=== PATIENT | male | born 1970 | race Caucasian/White ===

== ENCOUNTER 2023-12-02 10:38 | Outpatient (OUT) | payer OTHER, SELFPAY ==
--- NOTE | 2023-12-02 10:48 | XR_ITS ---
The [address] [address] Patient Name: ISH RODRIGUEZ MRN: [id number] date: 1970 Sex: M Assigned Patient Location: [facility] Current Patient Location: Accession/Order Number: [id number] Exam Date: 12/02/2023 10:49 Report Date: 12/03/2023 07:36 At the request of: SHAIKH YVONNE Procedure: XR knee LT 3V PROCEDURE: XR knee LT 3V COMPARISON: None. HISTORY: Chronic Left Knee Pain M25.562 FINDINGS: BONES:No acute fracture or dislocation. 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 No visible soft tissue swelling. EFFUSION:Small suprapatellar joint effusion OTHER: Negative. XR/XR knee LT 3V IMPRESSION: Mild osteoarthritis with joint effusion Electronically authenticated by: SOL MURCIA Date: 12/03/2023 07:36
== END 2023-12-02 10:39 | disposition home or self-care (01) ==
LOC: RAD 10:43
PROVIDERS: PCP Family Medicine; Visit Provider Internal Medicine
DX: M25.562 Pain in left knee (principal); G89.29 Other chronic pain; M25.462 Effusion, left knee
CPT/HCPCS: 73562

== ENCOUNTER 2024-06-07 10:39 | Outpatient (OUT) | payer OTHER, SELFPAY ==
--- NOTE | 2024-06-07 10:53 | XR_ITS ---
The [place] [id number] Patient Name: ISH RODRIGUEZ MRN: [id number] date: 1970 Sex: M Assigned Patient Location: [facility] Current Patient Location: [facility] Accession/Order Number: [id number] Exam Date: 06/07/2024 11:02 Report Date: 06/07/2024 12:00 At the request of: SHAIKH YVONNE Procedure: XR knee RT 3V PROCEDURE: XR knee RT 3V COMPARISON: None. HISTORY: Acute Pain Of Right Knee M25.561 FINDINGS: BONES:No fracture, acute abnormality, or significant arthropathy. SOFT TISSUES:Negative. No visible soft tissue swelling. EFFUSION:Moderate joint effusion OTHER: Negative. XR/XR knee RT 3V IMPRESSION: Moderate suprapatellar joint effusion Electronically authenticated by: SOL MURCIA Date: 06/07/2024 12:00
== END 2024-06-07 10:40 | disposition home or self-care (01) ==
LOC: RAD 10:41
PROVIDERS: PCP Internal Medicine; Visit Provider Internal Medicine
DX: M25.561 Pain in right knee (principal); M25.461 Effusion, right knee
CPT/HCPCS: 73562

== ENCOUNTER 2025-06-18 07:33 | Outpatient (OUT) | payer OTHER, SELFPAY ==
--- OUTSIDE RECORDS SUMMARY | 2025-06-18 07:38 | XMS_ITS | CCD ---
Author Organization [facility] CliniSypr Care Team Providers Care Wheelchair Rental Clerk Name Role Phone DR LEROY BARBA Attending Unavailable FREDA, DR LEROY Krishnan Consulting Unavailable FREDA, DR LEROY Krishnan Primary Care Unavailable FREDA, DR LEROY Krishnan Admitting Unavailable Freda LUI, Leroy Primary Care Provider TRISTAN, Primary Care Physician Timmis, Maren H Referring Unavailable Timmis, Maren H Attending Unavailable Timmis, Maren H Admitting Unavailable FAWWAD, DUBOSE Referring Unavailable LEROY BARBA Primary Care Unavailable Leroy Barba MD Primary Care Provider [phone] Tristan LUI, Unavailable Robert PRODUCTION GRAPHIC DESIGNER, Shayna Unavailable KORI RUBIO Attending Unavailable FAWWAD, DUBOSE Referring Unavailable MORATAYANANCY Attending Unavailable FAWWAD, DUBOSE Referring Unavailable MORATAYANANCY Attending Unavailable FAWWAD, DUBOSE Referring Unavailable FAWWAD, DUBOSE Attending Unavailable NANCY MORATAYA Attending Unavailable FAWWAD, DUBOSE Referring Unavailable NANCY MORATAYA Attending Unavailable FAWWAD, DUBOSE Referring Unavailable KORI RUBIO Attending Unavailable FAWWAD, DUBOSE Referring Unavailable KORI RUBIO Attending Unavailable FAWWAD, DUBOSE Referring Unavailable TIMMIS, MAREN H Attending Unavailable FAWWAD, DUBOSE Referring Unavailable TIMMIS, MAREN H Attending Unavailable MARLENY QUEZADA Attending Unavailable FAWWAD, DUBOSE Attending Unavailable FAWWAD, DUBOSE Attending Unavailable TIMMIS, MAREN H Attending Unavailable JR. WHYTE GEORGE C Attending SHAYNA Rebolledo Attending ELLA Prakash Attending Unavailable MERCED MCCALL Attending Unavailable MERCED MCCALL Attending Unavailable MAREN BOURNE Attending SHAYNA Ortiz Referring SHAYNA Pham Attending Shayna Pham NP Unavailable [phone] Medications Current Medications Medication Drug Class(es) Dates Sig (Normalized) Sig (Original) acetaminophen 325 mg / HYDROcodone bitartrate 5 mg oral tablet (3 sources) Opioid Agonist Start: 07-26-2024 End: 07-29-2024 take 1 tablet by mouth every six hours for pain HYDROcodone-acetami nophen ([place]) 5-325 MG tablet Indications: Post-operative pain Take 1 tablet by mouth every 6 (six) hours if needed for severe pain for up to 3 days 12 tablet 07/26/2024 07/29/2024 Active amoxicillin 200 mg / clavulanate 28.5 mg chewable tablet (15 sources) Penicillin-class Antibacterial End: 08-15-2024 amoxicillin-clavula butch (Augmentin) 200-28.5 MG chewable tablet Chew 08/15/2024 Discontinued (Therapy completed) cholecalciferol 0.05 mg oral tablet (4 sources) Vitamin D take 1 tablet by mouth in the morning cholecalciferol (Vitamin D-3) 50 MCG (2000 UT) tablet Take 2,000 Units by mouth in the morning. 0 Active clotrimazole 10 mg/ml topical cream (7 sources) Azole Antifungal Start: 07-11-2024 End: 08-08-2024 clotrimazole (Lotrimin) 1 % cream Indications: Primary hypertension (CMS/HCC) Apply topically 2 (two) times a day for 28 days 30 g 2 07/11/2024 08/08/2024 Active fluticasone propionate 0.05 mg/actuat metered dose nasal spray (20 sources) Corticosteroid Start: 04-24-2025 take 2 spray(s) nasal route once daily fluticasone (Flonase) 50 MCG/ACT nasal spray Indications: Chronic pansinusitis USE 2 SPRAYS IN EACH NOSTRIL DAILY 48 g 3 04/24/2025 Active Start: 05-19-2024 End: 04-24-2025 take 2 spray(s) nasal route once daily fluticasone (Flonase) 50 MCG/ACT nasal spray Indications: Chronic pansinusitis Administer 2 sprays into each nostril Daily 48 mL 3 05/19/2024 04/24/2025 Discontinued take 1 spray(s) nasa l route in the morning fluticasone (Flonase) 50 MCG/ACT nasal spray Administer 1 spray into each nostril in the morning. Shake gently. Before first use, prime pump. After use, clean tip and replace cap.. 0 Active losartan potassium 100 mg oral tablet (20 sources) Angiotensin 2 Receptor Nas Start: 05-22-2024 End: 04-09-2025 take 1 tablet by mouth once daily losartan (Cozaar) 100 MG tablet Indications: Primary hypertension (CMS/HCC) Take 1 tablet (100 mg) by mouth Daily 90 tablet 1 10/11/2024 Active montelukast 10 mg oral tablet (20 sources) Leukotriene Receptor Antagonist Start: 04-24-2025 montelukast (Singulair) 10 MG tablet Indications: Nasal polyp TAKE 1 TABLET AT BEDTIME 90 tablet 3 04/24/2025 Active Start: 05-19-2024 End: 05-19-2025 take 1 tablet by mouth at bedtime montelukast (Singulair) 10 MG tablet Indications: Nasal polyp Take 1 tablet (10 mg) by mouth at bedtime 90 tablet 3 05/19/2024 04/24/2025 Discontinued nystatin 100 unt/mg topical powder (4 sources) Polyene Antifungal Start: 11-24-2023 End: 02-22-2024 nystatin (Mycostatin) 949037 UNIT/GM powder Indications: Rash Apply topically 3 (three) times a day 60 g 2 11/24/2023 02/22/2024 Active predniSONE 10 mg oral tablet (16 sources) Start: 07-10-2024 End: 08-15-2024 predniSONE (Deltasone) 10 MG tablet 07/10/2024 08/15/2024 Discontinued (Therapy completed) Problems Active Problems Problem Classification Problem Date Documented Date Episodic/Chronic Essential hypertension (20 sources) Essential hypertension; Translations: [Essential (primary) hypertension] Onset: 11-23-2023 10-09-2024 Chronic Nutritional deficiencies (20 sources) Vitamin D deficiency, unspecified; Translations: [Vitamin D deficiency] Onset: 07-28-2022 11-23-2023 Chronic Other circulatory disease (4 sources) Elevated blood-pressure reading without diagnosis of hypertension; Translations: [Elevated blood-pressure reading, without diagnosis of hypertension] Onset: 11-23-2023 11-23-2023 Episodic Other non-traumatic joint disorders (1 source) Pain in right knee; Translations: [Pain in right knee] Onset: 06-27-2024 Episodic Other nutritional; endocrine; and metabolic disorders (2 sources) Obesity caused by energy imbalance; Translations: [Class 1 obesity due to excess calories with body mass index (BMI) of 33.0 to 33.9 in adult, unspecified whether serious comorbidity present] Onset: 05-01-2025 05-01-2025 Chronic Other screening for suspected conditions (not mental disorders or infectious disease) (9 sources) Encounter for screening for malignant neoplasm of prostate; Translations: [Patient encounter status] Onset: 07-28-2022 12-04-2024 Episodic Other upper respiratory infections (20 sources) Chronic right maxillary sinusitis; Translations: [Chronic maxillary sinusitis] Onset: 11-23-2023 11-23-2023 Chronic Residual codes; unclassified (4 sources) History of arthroscopy of knee joint; Translations: [Other specified postprocedural states] 08-14-2024 Episodic Past or Other Problems Problem Classification Problem Date Documented Date Episodic/Chronic Diabetes mellitus without complication (6 sources) High glucose level in blood; Translations: [Hyperglycemia, unspecified] Onset: 12-04-2024 12-04-2024 Episodic Fracture of lower limb (20 sources) Closed fracture of femoral condyle of femur; Translations: [Nondisplaced unspecified condyle fracture of lower end of right femur, initial encounter for closed fracture] Onset: 06-28-2024 06-28-2024 Episodic Joint disorders and dislocations; trauma-related (20 sources) Acute tear of meniscus of right knee; Translations: [Unspecified tear of unspecified meniscus, current injury, right knee, subsequent encounter] Onset: 07-11-2024 07-11-2024 Episodic Mycoses (20 sources) Candidiasis of skin; Translations: [Candidiasis of skin and nail] Onset: 07-11-2024 07-11-2024 Episodic Other connective tissue disease (20 sources) Trigger finger of right hand; Translations: [Trigger finger, unspecified finger] Onset: 11-23-2023 11-23-2023 Episodic Other nervous system disorders (1 source) Postoperative pain ; Translations: [Other acute postprocedural pain] 07-26-2024 Episodic Other non-traumatic joint disorders (20 sources) Pain in left knee; Translations: [Pain in joint, lower leg] Onset: 11-23-2023 11-23-2023 Episodic Other skin disorders (20 sources) Eruption; Translations: [Rash and other nonspecific skin eruption] Onset: 11-23-2023 11-23-2023 Episodic Other upper respiratory disease (20 sources) Acquired deviated nasal septum; Translations: [Deviated nasal septum] Onset: 11-24-2023 11-24-2023 Episodic Other upper respiratory disease (20 sources) Polyp of nasal cavity and/or nasal sinus; Translations: [Nasal polyp, unspecified] Onset: 02-28-2024 02-28-2024 Episodic Results Test Name Value Interpretation Reference Range Facility MR KNEE RT WO CONTon 024 MR KNEE RT WO CONT MR KNEE RT WO CONT MRI RIGHT KNEE CLINICAL INFORMATION: Medial pain. Pain is increasing. Pain after jumping injury COMPARISON: ?None. PROCEDURE: ?Multisequence, multiplanar MR images of the knee were obtained. FINDINGS: MENISCI Medial meniscus: Torn. Longitudinally oriented tear is appreciated this affects the posterior horn and the posterior root attachment. The tear extends to the tibial surface Lateral meniscus: Intact. LIGAMENTS Cruciate ligaments: Intact. Medial collateral ligament: Superficial and deep components intact. No periligamentous edema. Lateral collateral ligament: Intact. EXTENSOR MECHANISM Extensor mechanism: The distal quadriceps and patellar tendons are intact. The patella is normally positioned within the femoral groove. There is no retinacular disruption. FLUID Fluid: Moderate size joint effusion. Suprapatellar and medial patellar plica are observed OSSEOUS and ARTICULAR STRUCTURES Bones: Subchondral fracture affecting the central weightbearing portion of the medial femoral condyle is appreciated. Extensive edema is noted. No in situ fragment is noted. Patellofemoral compartment: Mild chondral wear Medial compartment: Moderate chondral wear Lateral compartment: Mild chondral wear IMPRESSION: Nondisplaced subchondral fracture of the central weightbearing portion of the medial femoral condyle is noted. Extensive edema is appreciated. Medial meniscus is torn. Complex joint effusion with plica. Follow-up with orthopedics is suggested. Finalized by Tanya Snell MD on 06/28/2024 2:20 PM Normal [facility] CT Maxillofacial w/o Contras ton 04-03-2024 CT Maxillofacial w/o Contrast Exam Date/Time: 03/30/2024 07:59 EDT Reason for Exam: J32.4 Report IMPRESSION: PARANASAL SINUS DISEASE DETAILED. Exam: CT Maxillofacial w/o Contrast History: Difficulty breathing Technique: Multiple contiguous axial images were obtained of the maxillofacial bones without contrast. Multiplanar reformats were obtained. Comparison: None available Findings: Maxillary Sinuses: Mild bilateral maxillary sinus mucosal thickening. Ethmoid sinuses: Near complete opacification of the majority of the ethmoid air cells. Sphenoid sinuses: Mild mucosal thickening. There is sphenoid pneumatization that extends inferior and posterior to the sella, resulting in a thin posterior bony margin of the clivus, consistent with sellar type pneumatization. Frontal sinuses: Near complete opacification of the right frontal sinus. The left frontal sinus is clear Right sphenoethmoidal recess: Opacified. Left sphenoethmoidal recess: Opacified. Right ostiomeatal complex and frontal recess: Opacified. Left ostiomeatal complex: Opacified. Left frontal recess: Partially opacified. Nasal septum: Rightward deviation. Other: Keros type 2 olfactory fossa. No [place] or Eliceo cells. Mastoid air cells & middle ears: Clear. The middle ears are unremarkable. Soft tissues & Brain: No acute abnormality identified. Orbital contents are within normal limits. Report All CT scans at this facility use dose modulation, iterative reconstruction, and/or weight based dosing when appropriate to reduce radiation dose to as low as reasonably achievable. Ordering Provider: Maren Bourne FINAL REPORT Dictated: 04/03/2024 3:04 pm Kade Coreas DO Signed (Electronic Signature): 04/03/2024 3:04 pm Signed by: Kade Coreas DO Transcribed by: ELSY Technologist: JOSÉ LUIS Parrish [facility] Consent for Treatmenton Consent for Treatment [id number] #1.00TIFF Normal [facility] Physician Orderon 03-28-2024 Physician Order [id number] #1.00TIFF Normal [facility] VIT D 25-OH LABCORPon 2021 Vitamin D, 25-Hydroxy 35.2 ng/mL Normal 30.0-100.0 [facility] Comment on above: Result Comment: Barbara min D deficiency has been defined by the [place] of Medicine and an Endocrine Society practice guideline as a level of serum 25-OH vitamin D less than 20 ng/mL (1,2). The Endocrine Society went on to further define vitamin D insufficiency as a level between 21 and 29 ng/mL (2). 1. IOM ([place] of Medicine). 2010. Dietary reference intakes for calcium and D. [place]: The National Academies Press. 2. Gayle MF, Didier ARROYO, Jaky BERGERON, et al. Evaluation, treatment, and prevention of vitamin D deficiency: an Endocrine Society clinical practice guideline. JCEM. 2010; 96(7):1911-30. Performed By: #### V ITADLC #### [facility] [address] [place] [address] Dr. Gasper Vega CBC AUTO DIFFon 07-27-2022 BASO # 0.0 103/ul Normal 0.0-0.1 [facility] Comment on above: Performed By: #### C BC #### [facility] [address] [place] [address] Dr. Gasper Vega Basophils/100 WBC (Bld) 0.4 % Normal 0.2-2.0 [facility] Comment on above: Performed By: #### C BC #### [facility] [address] [place] [address] Dr. Gasper Vega EO # 0.3 103/ul Normal 0.0-0.7 [facility] Comment on above: Performed By: #### C BC #### [facility] [address] [place] [address] Dr. Gasper Vega Eosinophils/100 WBC (Bld) 3.1 % Normal 0.9-7.0 [facility] Comment on above: Performed By: #### C BC #### [facility] [address] [place] [address] Dr. Gasper Vega Erythrocyte distribution width (RBC) [Ratio] 13.0 % Normal 11.0-15.0 [facility] Comment on above: Performed By: #### C BC #### [facility] [address] [place] [address] Dr. Gasper Vega Hematocrit (Bld) [Volume fraction] 39.4 % Critically low 42.0-54.0 [facility] Comment on above: Performed By: #### C BC #### [facility] [address] [place] [address] Dr. Gasper Vega Hemoglobin (Bld) [Mass/Vol] 13.2 g/dL Critically low 14.0-18.0 [facility] Comment on above: Performed By: #### C BC #### [facility] [address] [place] [address] Dr. Gasper Vega IG # 0.02 10e3/ul Normal 0.00-0.03 [facility] Comment on above: Performed By: #### C BC #### [facility] [address] [place] [address] Dr. Gasper Vega IG % 0.2 % Normal 0.0-0.5 [facility] Comment on above: Performed By: #### C BC #### [facility] [address] [place] [address] Dr. aGsper Vega LYMPH # 1.9 103/ul Normal 1.2-3.8 [facility] Comment on above: Performed By: #### C BC #### [facility] [address] [place] [address] Dr. Gasper Vega Lymphocytes/100 WBC (Bld) 22.7 % Normal 20.5-60.0 [facility] Comment on above: Performed By: #### C BC #### [facility] [address] [place] [address] Dr. Gasper Vega MANUAL DIFF REQ NO Normal [facility] Comment on above: Performed By: #### C BC #### [facility] [address] [place] [address] Dr. Gasper Vega MCH (RBC) [Entitic mass] 30.7 pg Normal 25.9-34.0 [facility] Comment on above: Performed By: #### C BC #### [facility] [address] [place] [address] Dr. Gasper Vega MCHC (RBC) [Mass/Vol] 33.5 g/dL Normal 29.9-35.2 [facility] Comment on above: Performed By: #### C BC #### [facility] [address] [place] [address] Dr. Gasper Vega MCV (RBC) [Entitic vol] 91.6 fL Normal 80.0-94.0 [facility] Comment on above: Performed By: #### C BC #### [facility] [address] [place] [address] Dr. Gasper Vega MONO # 0.9 103/ul Critically high 0.3-0.[address] [facility] Comment on above: Performed By: #### C BC #### [facility] [address] [place] [address] Dr. Gasper Vega Monocytes/100 WBC (Bld) 10.9 % Normal 1.7-12.0 [facility] Comment on above: Performed By: #### C BC #### [facility] [address] [place] [address] Dr. Gasper Vega NEUT # 5.3 103/ul Normal 1.4-6.5 [facility] Comment on above: Performed By: #### C BC #### [facility] [address] [place] [address] Dr. Gasper Vega Neutrophils/100 WBC (Bld) 62.7 % Normal 43.0-75.0 [facility] Comment on above: Performed By: #### C BC #### [facility] [address] [place] [address] Dr. Gasper Vega Platelet mean volume (Bld) [Entitic vol] 8.5 fL Critically low 9.5-13.5 [facility] Comment on above: Performed By: #### C BC #### [facility] [address] [address] [address] Gasper Vega PLT 286 103/ul Normal 150-450 [facility] Comment on above: Performed By: #### C BC #### [facility] [address] [address] [address] Gasper Vega RBC 4.30 106/ul Critically low 4.70-6.10 [facility] Comment on above: Performed By: #### C BC #### [facility] [address] [place] [address] Dr. Gasper Vega WBC 8.4 103/ul Normal 4.0-11.0 [facility] Comment on above: Performed By: #### C BC #### [facility] [address] [place] [address] Dr. Gasper Vega DIRECT LDLon 07-27-2022 Cholesterol in LDL [Mass/Vol] 93 mg/dL Normal [facility] Comment on above: Performed By: #### L IPID, BMP, LIVER, DLDL, TSH #### [facility] [address] [place] [address] Dr. Gasper Vega DLDL NORMAL SEE BELOW Normal [facility] Comment on above: Result Comment: <100 mg/dl OPTIMAL 100 - 129 mg/dl NEAR OR ABOVE OPTIMAL 130 - 159 mg/dl BORDERLINE HIGH 160 - 189 mg/dl HIGH >190 mg/dl VERY HIGH Performed By: #### L IPID, BMP, LIVER, DLDL, TSH #### [facility] [address] [place] [address] Dr. Gasper Vega GLYCOHEMOGLOBIN A1Con 2021 ADA RECOMMENDATION SEE BELOW Normal [facility] Comment on above: Result Comment: ADA RECOMMENDED LIMIT 4.0 - 6.0 ADA THERAPEUTIC TARGET < 7.0 ACTION SUGGESTED > 7.0 Performed By: #### A 1C #### [facility] [address] [place] [address] Dr. Gasper Vega Glucose [Mass/Vol] 137 mg/dL Normal [facility] Comment on above: Performed By: #### A 1C #### [facility] [address] [address] [address] Gasper Vega HbA1c (Bld) [Mass fraction] 6.4 % Critically high 4.5-6.2 [facility] Comment on above: Performed By: #### A 1C #### [facility] [address] [place] [address] Dr. Gasper Vega LIPID PROFILEon 07-27-2022 CHOL-HDL RATIO NORM SEE BELOW Normal [facility] Comment on above: Result Comment: 3.3 - 4.4 LOW RISK 4.4 - 7.1 AVERAGE RISK 7.1 - 11.0 MODERATE RISK >11.0 HIGH RISK Performed By: #### L IPID, BMP, LIVER, DLDL, TSH #### [facility] [address] [place] [address] Dr. Gasper Vega Cholesterol [Mass/Vol] 187 mg/dL Normal <=200 [facility] Comment on above: Performed By: #### L IPID, BMP, LIVER, DLDL, TSH #### [facility] [address] [address] [address] Gasper Vega Cholesterol in HDL [Mass/Vol] 30 mg/dL Critically low 40-60 [facility] Comment on above: Performed By: #### L IPID, BMP, LIVER, DLDL, TSH #### [facility] [address] [place] [address] Dr. Gasper Vega Cholesterol.total/Cho lesterol in HDL [Mass ratio] 6.2 {ratio} Normal [facility] Comment on above: Performed By: #### L IPID, BMP, LIVER, DLDL, TSH #### [facility] [address] [place] [address] Dr. Gasper Vega HDL NORMAL > or = 60 mg/dl - LOW CARDIOVASCULAR RISK <40 mg/dl - HIGH CARDIOVASCULAR RISK Normal [facility] Comment on above: Performed By: #### L IPID, BMP, LIVER, DLDL, TSH #### [facility] [address] [place], [place] [id number] Dr. Gasper Vega Triglyceride [Mass/Vol] 405 mg/dL Critically high <=150 [facility] Comment on above: Performed By: #### L IPID, BMP, LIVER, DLDL, TSH #### [facility] [address] [address] [address] Gasper Vega VLDL CALC 81.0 mg/dL Normal [facility] Comment on above: Performed By: #### L IPID, BMP, LIVER, DLDL, TSH #### [facility] [address] [address] [address] Gasper Vega LIVER PROFILEon 07-27-2022 Albumin [Mass/Vol] 3.8 g/dL Normal 3.4-5.0 [facility] Comment on above: Performed By: #### L IPID, BMP, LIVER, DLDL, TSH #### [facility] [address] [place] [address] Dr. Gasper Vega Albumin/Globulin [Mass ratio] 1.2 {ratio} Normal [facility] Comment on above: Performed By: #### L IPID, BMP, LIVER, DLDL, TSH #### [facility] [address] [address] [address] Gasper Vega ALP [Catalytic activity/Vol] 76 U/L Normal 46-116 [facility] Comment on above: Performed By: #### L IPID, BMP, LIVER, DLDL, TSH #### [facility] [address] [address] [address] Gasper Vega ALT [Catalytic activity/Vol] 50 U/L Normal 16-63 [facility] Comment on above: Performed By: #### L IPID, BMP, LIVER, DLDL, TSH #### [facility] [address] [address] [address] Gasper Vega AST [Catalytic activity/Vol] 21 U/L Normal 15-37 [facility] Comment on above: Performed By: #### L IPID, BMP, LIVER, DLDL, TSH #### [facility] [address] [address] [address] Gasper Vega BILI, CONJUGATED 0.0 mg/dL Normal 0.0-0.2 [facility] Comment on above: Performed By: #### L IPID, BMP, LIVER, DLDL, TSH #### [facility] [address] [place] [address] Dr. Gasper Vega Bilirubin [Mass/Vol] 0.3 mg/dL Normal 0.2-1.0 [facility] Comment on above: Performed By: #### L IPID, BMP, LIVER, DLDL, TSH #### [facility] [address] [place] [address] Dr. Gasper Vega Globulin (S) [Mass/Vol] 3.3 g/dL Normal [facility] Comment on above: Performed By: #### L IPID, BMP, LIVER, DLDL, TSH #### [facility] [address] [place] [address] Dr. Gasper Vega Protein [Mass/Vol] 7.1 g/dL Normal 6.4-8.2 [facility] Comment on above: Performed By: #### L IPID, BMP, LIVER, DLDL, TSH #### [facility] [address] [place] [address] Dr. Gasper Vega PROF CHEM 8 (BAS METB)on Anion gap [Moles/Vol] 15.2 mmol/L Normal [facility] Comment on above: Performed By: #### L IPID, BMP, LIVER, DLDL, TSH #### [facility] [address] [place] [address] Dr. Gasper Vega Calcium [Mass/Vol] 8.9 mg/dL Normal 8.5-10.1 [facility] Comment on above: Performed By: #### L IPID, BMP, LIVER, DLDL, TSH #### [facility] [address] [place] [address] Dr. Gasper Vega Chloride [Moles/Vol] 104 mmol/L Normal 98-107 [facility] Comment on above: Performed By: #### L IPID, BMP, LIVER, DLDL, TSH #### [facility] [address] [place] [address] Dr. Gasper Vega CO2 [Moles/Vol] 24.9 mmol/L Normal 21.0-32.0 [facility] Comment on above: Performed By: #### L IPID, BMP, LIVER, DLDL, TSH #### [facility] [facility] [address] [address] [address] Gasper Vega Creatinine [Mass/Vol] 0.79 mg/dL Normal 0.70-1.30 [facility] Comment on above: Performed By: #### L IPID, BMP, LIVER, DLDL, TSH #### [facility] [address] [address] [address] Gasper Vega EGFR-AF SERBIAN >60 Normal >=60 [facility] Comment on above: Performed By: #### L IPID, BMP, LIVER, DLDL, TSH #### [facility] [address] [address] [address] Gasper Vega EGFR-NON AF SERBIAN >60 Normal >=60 [facility] Comment on above: Performed By: #### L IPID, BMP, LIVER, DLDL, TSH #### [facility] [address] [address] [address] Gasper Vega Glucose [Mass/Vol] 126 mg/dL Critically high 74-106 [facility] Comment on above: Performed By: #### L IPID, BMP, LIVER, DLDL, TSH #### [facility] [address] [address] [address] Gasper Vega Potassium [Moles/Vol] 4.1 mmol/L Normal 3.5-5.1 [facility] Comment on above: Performed By: #### L IPID, BMP, LIVER, DLDL, TSH #### [facility] [address] [address] [address] Gasper Vega Sodium [Moles/Vol] 140 mmol/L Normal 136-145 [facility] Comment on above: Performed By: #### L IPID, BMP, LIVER, DLDL, TSH #### [facility] [address] [address] [address] Gasper Vega Urea nitrogen [Mass/Vol] 14.0 mg/dL Normal 7.0-18.0 [facility] Comment on above: Performed By: #### L IPID, BMP, LIVER, DLDL, TSH #### [facility] [address] [address] [address] Gasper Vega Urea nitrogen/Creatinine [Mass ratio] 17.7 mg/mg Normal [facility] Comment on above: Performed By: #### L IPID, BMP, LIVER, DLDL, TSH #### [facility] [address] [address] [address] Gasper Vega TSHon 07-27-2022 TSH 0.913 uIU/mL Normal 0.358-3.740 [facility] Comment on above: Performed By: #### L IPID, BMP, LIVER, DLDL, TSH #### [facility] [address] [address] [address] Gasper Vega Vital Signs Date Time Vital Sign Value Performing Clinician Dale garibayy 12-04-2024 15:24-0500 Body height 172.7 cm Shaynaburak Piperk PRODUCTION GRAPHIC DESIGNER Work Phone: [facility] 12-04-2024 15:24-0500 Body mass index (BMI) [Ratio] 33.45 kg/m2 Shayna Jones PRODUCTION GRAPHIC DESIGNER Work Phone: [facility] 12-04-2024 15:24-0500 Body temperature 98.71 [degF] Shayna Moranpatrick PRODUCTION GRAPHIC DESIGNER Work Phone: [facility] 12-04-2024 15:24-0500 Body weight 99.79 kg Shayna Jones PRODUCTION GRAPHIC DESIGNER Work Phone: [facility] 12-04-2024 15:24-0500 Diastolic blood pressure 86 mm[Hg] Shayna Moranpatrick PRODUCTION GRAPHIC DESIGNER Work Phone: [facility] 12-04-2024 15:24-0500 Heart rate 84 /min Shayna Moranpatrick PRODUCTION GRAPHIC DESIGNER Work Phone: [facility] 12-04-2024 15:24-0500 Respiratory rate 16 /min Shayna Piperk PRODUCTION GRAPHIC DESIGNER Work Phone: [facility] 12-04-2024 15:24-0500 SaO2% (BldA) [Mass fraction] 98 % Shayna Borrerotrick PRODUCTION GRAPHIC DESIGNER Work Phone: [facility] 12-04-2024 15:24-0500 Systolic blood pressure 142 mm[Hg] Shayna Borrerotrick PRODUCTION GRAPHIC DESIGNER Work Phone: [facility] 08-15-2024 09:17-0400 Body height 175.3 cm Maren Bourne MD Work Phone: [facility] 08-15-2024 09:17-0400 Body mass index (BMI) [Ratio] 32.78 kg/m2 Maren Bourne MD Work Phone: [facility] 08-15-2024 09:17-0400 Body weight 100.7 kg Maren Bourne MD Work Phone: [facility] 08-15-2024 09:17-0400 Diastolic blood pressure 86 mm[Hg] Maren Bourne MD Work Phone: [facility] 08-15-2024 09:17-0400 Systolic blood pressure 141 mm[Hg] Maren Bourne MD Work Phone: [facility] 07-18-2024 14:13-0400 Body height 175.3 cm Ella SANDOVAL Work Phone: [facility] 07-18-2024 14:13-0400 Body mass index (BMI) [Ratio] 32.05 kg/m2 Ella SANDOVAL Work Phone: [facility] 07-18-2024 14:13-0400 Body weight 98.43 kg Ella SANDOVAL Work Phone: [facility] Encounters Encounter Date Encounter Type Care Provider Facility Start: 05-01-2025 End: 05-01-2025 Orders Only Melissa Moeller PRODUCTION GRAPHIC DESIGNER Work Phone: [facility] Comment on above: Primary hypertension (CMS/HCC) (Primary Dx); Vitamin D deficiency; Class 1 obesity due to excess calories with body mass index (BMI) of 33.0 to 33.9 in adult, unspecified whether serious comorbidity present; Screening PSA (prostate specific antigen) Start: 04-24-2025 End: 04-24-2025 Refill Maren Bourne MD Work Phone: [facility] Comment on above: Nasal polyp; Chronic pansinusitis Start: 12-04-2024 End: 12-04-2024 Office outpatient visit 15 minutes Shayna Piperk PRODUCTION GRAPHIC DESIGNER Work Phone: [facility] Comment on above: Primary hypertension (CMS/HCC) (Primary Dx); Elevated random blood glucose level; Screening for hyperlipidemia Start: 12-04-2024 End: 12-04-2024 ambulatory SHAYNA JONES Not Available Start: 10-11-2024 End: 10-11-2024 Refill Shelly Eubanks MA [facility] Comment on above: Primary hypertension (CMS/HCC) Start: 10-09-2024 End: 10-09-2024 Refill Shelly Eubanks MA [facility] Comment on above: Primary hypertension (CMS/HCC) Start: 08-15-2024 End: 08-15-2024 Bamboo flowsheet Maren Bourne MD Work Phone: [facility] Start: 08-15-2024 End: 08-15-2024 Bamboo flowsheet Maren Bourne MD Work Phone: [facility] Start: 08-15-2024 End: 08-15-2024 Office outpatient visit 15 minutes Maren Bourne MD Work Phone: [facility] Comment on above: Nasal polyp (Primary Dx) Start: 08-15-2024 End: 08-15-2024 ambulatory MAREN BOURNE Not Available Start: 08-14-2024 End: 08-14-2024 Bamboo flowsheet Merced Mccall PRODUCTION GRAPHIC DESIGNER Work Phone: [facility] Start: 08-14-2024 End: 08-14-2024 Bamboo flowsheet Merced Kalyani Cal PRODUCTION GRAPHIC DESIGNER Work Phone: [facility] Start: 08-14-2024 End: 08-14-2024 Postop follow up visit related to original px Merced Auguste Cal PRODUCTION GRAPHIC DESIGNER Work Phone: [facility] Comment on above: Status post arthrosc opy of right knee (Primary Dx) Start: 08-14-2024 End: 08-14-2024 ambulatory MERCED Kalyani CAL Not Available Start: 08-09-2024 End: 08-09-2024 Bamboo flowsheet Merced Mccall PRODUCTION GRAPHIC DESIGNER Work Phone: [facility] Start: 08-09-2024 End: 08-09-2024 Bamboo flowsheet Merced Kalyani Cal PRODUCTION GRAPHIC DESIGNER Work Phone: [facility] Start: 08-09-2024 End: 08-09-2024 ambulatory MERCED MCCALL Not Available Start: 08-09-2024 End: 08-09-2024 Postop follow up visit related to original px Merced Kalyani Cal PRODUCTION GRAPHIC DESIGNER Work Phone: [facility] Comment on above: Status post arthrosc opy of right knee (Primary Dx); Nondisplaced fracture of medial condyle of right femur, subsequent encounter for closed fracture with routine healing Start: 07-26-2024 End: 07-26-2024 Telephone encounter Jr. Justine Whyte DO Work Phone: [facility] Comment on above: Post-operative pain (Primary Dx) Start: 07-25-2024 End: 07-25-2024 Telephone encounter Bill Patel PT Work Phone: [facility] Comment on above: re: Cancellation (Tr ied to contact re: cx of crutch-train / dispense that was scheduled 07/12 w/ upcoming sx on 07/27/24. I had to lm requesting a call to check status and to seek cx details.) Start: 07-18-2024 End: 07-18-2024 Patient encounter procedure Ella Oakley PA Work Phone: [facility] Comment on above: Pre-op examination ( Primary Dx) Start: 07-18-2024 End: 07-18-2024 Preprocedural examination done Ella Oakley PA Work Phone: [facility] Work Phone: Start: 07-18-2024 End: 07-18-2024 ambulatory ELLA OAKLEY Not Available Start: 07-18-2024 End: 07-18-2024 Bamboo flowsheet Ella Oakley PA Work Phone: [facility] Start: 07-18-2024 End: 07-18-2024 Bamboo flowsheet Ella Oakley PA Work Phone: [facility] Start: 07-11-2024 End: 07-11-2024 ambulatory SHAYNA JONES Not Available Start: 07-10-2024 End: 07-10-2024 ambulatory JUSTINE MARIE Not Available Start: 07-05-2024 End: 07-05-2024 ambulatory MAREN H TIMMIS Not Available Start: 06-27-2024 End: 06-27-2024 ambulatory DUBOSEALAN HUDSON [facility] Start: 06-05-2024 End: 06-05-2024 ambulatory SHAIKH SHARIFWAD Not Available Start: 04-11-2024 End: 04-11-2024 ambulatory SHAIKH SHARIFWAD Not Available Start: 04-05-2024 End: 04-05-2024 ambulatory MARLENY Roland RAMBASEK Not Available Start: 04-04-2024 End: 04-04-2024 ambulatory MAREN H TIMMIS Not Available Start: 03-30-2024 End: 03-31-2024 ambulatory Maren H Timmis Facility:[facility] Start: 03-30-2024 End: 03-30-2024 Patient encounter procedure Maren H Timmis [facility] Start: 02-28-2024 End: 02-28-2024 ambulatory MAREN H TIMMIS Not Available Start: 02-03-2024 End: 02-04-2024 ambulatory KORI J JOANNE Not Available Start: 02-01-2024 End: 02-02-2024 ambulatory KORI J JOANNE Not Available Start: 01-25-2024 End: 01-25-2024 ambulatory NANCY MORATAYA Not Available Start: 01-18-2024 End: 01-18-2024 ambulatory NANCY MORATAYA Not Available Start: 01-17-2024 End: 01-17-2024 ambulatory SHAIKH TRISTAN Not Available Start: 01-14-2024 End: 01-14-2024 ambulatory NANCY MORATAYA Not Available Start: 01-11-2024 End: 01-11-2024 ambulatory Nancy Morataya REGENERATOR OPERATOR Work Phone: [facility] Comment on above: Chronic pain of left knee (Primary Dx) Start: 01-11-2024 Bamboo flowsheet Nancy Wrig ht REGENERATOR OPERATOR Work Phone: [facility] Start: 01-11-2024 Bamboo flowsheet Nancy Wrig ht REGENERATOR OPERATOR Work Phone: [facility] Start: 01-06-2024 Bamboo flowsheet Kori J Sprigg s PT Work Phone: [facility] Start: 01-06-2024 Bamboo flowsheet Kori J Sprigg s PT Work Phone: [facility] Start: 01-06-2024 End: 01-06-2024 ambulatory Kori J Joanne PT Work Phone: [facility] Comment on above: Chronic pain of left knee (Primary Dx) Start: 07-28-2022 Encounter for genera l adult medical examination without abnormal findings DR LEROY BARBA [facility] Start: 07-27-2022 End: 07-28-[address] LEROY BARBA Facility:[facility] Start: 07-27-2022 End: 07-28-2022 Encounter for general adult medical examination without abnormal findings DR LEROY BARBA Facility:[facility] Procedures Date Procedure Procedure Detail Performing Clinician Start: 03-11-2023 Colonoscopy Ella SADNOVAL Work Phone: Start: 07-27-[address] LEROY FOSTER Comment on above: Performed By: #### P [facility] #### [facility] [address] [place] [address] Dr. Gasper Vega Plan of Treatment Date Care Activity Detail Author Start: 03-11-2033 Screening for malign ant neoplasm of colon [facility] Start: 06-21-2025 End: 06-21-2025 Patient encounter procedure 06/21/2025 9:00 AM EDT Office Visit [facility] [address] [place] [address] Melissa Moeller NP [address] [place] [address] [facility] Start: 05-01-2025 End: 05-01-2026 25-hydroxyvitamin D3 [Mass/volume] in Serum or Plasma Vitamin D 25 hydroxy Lab Routine Vitamin D deficiency Expected: 05/01/2025 (Approximate), Expires: 05/01/2026 [facility] Comment on above: Expected: 05/01/2025 (Approximate), Expires: 05/01/2026 Start: 05-01-2025 End: 05-01-2026 CBC W Auto Differential panel - Blood CBC and differential Lab Routine Primary hypertension (CMS/HCC) Expected: 05/01/2025 (Approximate), Expires: 05/01/2026 [facility] Work Phone: Comment on above: Expected: 05/01/2025 (Approximate), Expires: 05/01/2026 Start: 05-01-2025 End: 05-01-2026 Comprehensive metabolic 2000 panel - Serum or Plasma Comprehensive metabolic panel Lab Routine Primary hypertension (CMS/HCC) Expected: 05/01/2025 (Approximate), Expires: 05/01/2026 [facility] Comment on above: Expected: 05/01/2025 (Approximate), Expires: 05/01/2026 Start: 05-01-2025 End: 05-01-2026 Lipid 1996 panel - Serum or Plasma Lipid panel Lab Routine Class 1 obesity due to excess calories with body mass index (BMI) of 33.0 to 33.9 in adult, unspecified whether serious comorbidity present Expected: 05/01/2025 (Approximate), Expires: 05/01/2026 [facility] Comment on above: Expected: 05/01/2025 (Approximate), Expires: 05/01/2026 Start: 05-01-2025 End: 05-01-2026 Microalbumin/Creatinine panel in random Urine Microalbumin / creatinine, urine ratio Lab Routine Primary hypertension (CMS/HCC) Expected: 05/01/2025 (Approximate), Expires: 05/01/2026 [facility] Comment on above: Expected: 05/01/2025 (Approximate), Expires: 05/01/2026 Start: 05-01-2025 End: 05-01-2026 Prostate specific Ag [Mass/volume] in Serum or Plasma PSA Lab Routine Screening PSA (prostate specific antigen) Expected: 05/01/2025 (Approximate), Expires: 05/01/2026 [facility] Comment on above: Expected: 05/01/2025 (Approximate), Expires: 05/01/2026 Start: 05-01-2025 End: 05-01-2026 Thyrotropin [Units/volume] in Serum or Plasma TSH Lab Routine Class 1 obesity due to excess calories with body mass index (BMI) of 33.0 to 33.9 in adult, unspecified whether serious comorbidity present Expected: 05/01/2025 (Approximate), Expires: 05/01/2026 [facility] Comment on above: Expected: 05/01/2025 (Approximate), Expires: 05/01/2026 Start: 05-01-2025 End: 05-01-2026 Urinalysis complete panel - Urine Urinalysis with reflex microscopic (clean catch) Lab Routine Primary hypertension (CMS/HCC) Expected: 05/01/2025 (Approximate), Expires: 05/01/2026 [facility] Comment on above: Expected: 05/01/2025 (Approximate), Expires: 05/01/2026 Start: 12-04-2024 End: 12-04-2024 Patient encounter procedure 12/04/2024 3:30 PM EST Office Visit [facility] [address] [place] [address] Shayna Jones, PRODUCTION GRAPHIC DESIGNER [address] [place] [address] [facility] Start: 12-04-2024 End: 12-04-2025 CBC W Auto Differential panel - Blood CBC and differential Lab Routine Primary hypertension (CMS/HCC) Expected: 12/04/2024 (Approximate), Expires: 12/04/2025 [facility] Comment on above: Expected: 12/04/2024 (Approximate), Expires: 12/04/2025 Start: 12-04-2024 End: 12-04-2025 Comprehensive metabolic 2000 panel - Serum or Plasma Comprehensive metabolic panel Lab Routine Primary hypertension (CMS/HCC) Expected: 12/04/2024 (Approximate), Expires: 12/04/2025 [facility] Comment on above: Expected: 12/04/2024 (Approximate), Expires: 12/04/2025 Start: 12-04-2024 End: 12-04-2025 Hemoglobin A1c/Hemoglobin.total in Blood Hemoglobin A1c Lab Routine Elevated random blood glucose level Expected: 12/04/2024 (Approximate), Expires: 12/04/2025 [facility] Comment on above: Expected: 12/04/2024 (Approximate), Expires: 12/04/2025 Start: 12-04-2024 End: 12-04-2025 Lipid 1996 panel - Serum or Plasma Lipid panel Lab Routine Screening for hyperlipidemia Expected: 12/04/2024 (Approximate), Expires: 12/04/2025 [facility] Comment on above: Expected: 12/04/2024 (Approximate), Expires: 12/04/2025 Start: 12-04-2024 End: 12-04-2025 Microalbumin/Creatinine panel in random Urine Microalbumin / creatinine urine ratio Lab Routine Primary hypertension (CMS/HCC) Expected: 12/04/2024 (Approximate), Expires: 12/04/2025 [facility] Work Phone: Comment on above: Expected: 12/04/2024 (Approximate), Expires: 12/04/2025 Start: 11-14-2024 End: 11-14-2024 Patient encounter procedure 11/14/2024 9:00 AM EST Office Visit [facility] [address] [place] [phone] Maren Bourne MD [address] [place] [address] [facility] Start: 08-15-2024 End: 08-15-2024 Patient encounter procedure [facility] Comment on above: Arrived Start: 08-14-2024 End: 08-14-2024 Patient encounter procedure [facility] Comment on above: Arrived Start: 08-09-2024 End: 08-09-2024 Patient encounter procedure 08/09/2024 10:00 AM EDT Office Visit [facility] [address] [place] [phone] Merced Mccall, PRODUCTION GRAPHIC DESIGNER [address] [place] [address] [facility] Start: 07-30-2024 Influenza vaccination Influenza Vacc ine (#1) [facility] Start: 07-27-2024 End: 07-27-2024 Patient encounter procedure 07/27/2024 12:45 PM EDT Procedure Visit [facility] Jr. Justine Whyte DO [address] [facility] [address] [place] [address] [facility] Start: 07-18-2024 End: 07-18-2024 Patient encounter procedure 07/18/2024 3:00 PM EDT Office Visit [facility] [address] [place] [phone] Ella Oakley PA [address] [facility] [address] [place] [address] Pre-op examination (Primary Dx) [facility] Comment on above: Pre-op examination ( Primary Dx) Start: 02-28-2024 End: 02-28-2024 Patient encounter procedure 02/28/2024 8:00 AM EDT Office Visit [facility] [address] [facility] [address] [place] [phone] Maren Bourne MD [address] [facility] [address] [place] [address] [facility] Start: 02-10-2024 End: 02-10-2024 ambulatory 02/10/2024 5:00 PM EDT Treatment [facility] [address] [place] [phone] Kori Rubio, PT [address] [place] [address] [facility] Start: 02-08-2024 End: 02-08-2024 ambulatory 02/08/2024 5:00 PM EDT Treatment [facility] [address] [place] [phone] Nancy Morataya, REGENERATOR OPERATOR [address] [place] [address] [facility] Start: 02-03-2024 End: 02-03-2024 ambulatory 02/03/2024 5:00 PM EST Treatment [facility] [address] [place] [phone] Kori Rubio, PT [address] [place] [address] [facility] Start: 02-01-2024 End: 02-01-2024 ambulatory 02/01/2024 5:00 PM EST Treatment [facility] [address] [place] [phone] Kori Rubio, PT [address] [place] [address] [facility] Start: 01-27-2024 End: 01-27-2024 ambulatory 01/27/2024 5:00 PM EST Treatment [facility] [address] [place] [phone] Nancy Morataya, REGENERATOR OPERATOR [address] [place] [address] [facility] Start: 01-25-2024 End: 01-25-2024 ambulatory 01/25/2024 5:00 PM EST Treatment [facility] [address] [place] [phone] Nancy Morataya, REGENERATOR OPERATOR [address] [place] [address] [facility] Start: 01-20-2024 End: 01-20-2024 ambulatory 01/20/2024 5:00 PM EST Treatment [facility] [address] [place] [phone] Nancy Morataya, REGENERATOR OPERATOR [address] [place] [address] [facility] Start: 01-18-2024 End: 01-18-2024 ambulatory [facility] Start: 01-17-2024 End: 01-17-2024 Patient encounter procedure 01/17/2024 10:00 AM EST Office Visit [facility] [address] [place] [address] Shaikh Hudson MD [address] [place] [address] [facility] Start: 01-14-2024 End: 01-14-2024 ambulatory 01/14/2024 9:00 AM EST Treatment [facility] [address] [place] [phone] Nancy Morataya, REGENERATOR OPERATOR [address] [place] [address] [facility] Start: 01-11-2024 End: 01-11-2024 ambulatory [facility] Comment on above: Arrived Start: 07-30-2023 Influenza vaccination Influenza Vacc ine (#1) [facility] Start: 1970 Screening for malign ant neoplasm of colon [facility] Immunizations Immunization Date Immunization Notes Care Provider Fa cility 08-29-2024 influenza, seasonal, injectable Shayna Jones PRODUCTION GRAPHIC DESIGNER Work Phone: [facility] Payers Date Payer Category Payer Unknown [id number] 2016 Private Health Insurance [employer] [id number] 2016 Unknown [employer] [id number] 2016-Present [address] [place] [address] [id number] 1970 Unknown [id number] 2.16.840.1.702893.3.579 .2.593 1970 Unknown [id number] 2.16.840.1.728142.3.579 .2.727 1970 Unknown [id number] 2.16.840.1.105010.3.579 .2.1286 1970 Unknown [id number] 2.16.840.1.108753.3.579 .2.1259 1970 Unknown [id number] 2.16.840.1.454243.3.579 .2.1258 1970 Unknown [id number] 2.16.840.1.363726.3.579 .2.1258 1970 Unknown [id number] 2.16.840.1.726140.3.579 .2.1258 1970 Unknown [id number] 2.16.840.1.557089.3.579 .2.1258 1970 Unknown [id number] 2.16.840.1.570135.3.579 .2.1258 1970 Unknown [id number] 2.16.840.1.453823.3.579 .2.1258 1970 Unknown [id number] 2.16.840.1.110584.3.579 .2.1258 1970 Unknown [id number] 2.16840.1.408233.3.579 .2.1258 1970 Unknown [id number] 2.16.840.1.061047.3.579 .2.1258 1970 Unknown [id number] 2.16.840.1.020815.3.579 .2.1258 1970 Unknown [id number] 2.16.840.1.093215.3.579 .2.1258 1970 Unknown [id number] 2.16.840.1.366867.3.579 .2.1258 1970 Unknown [id number] 2.16.840.1.218756.3.579 .2.1258 1970 Unknown [id number] 2.16.840.1.968862.3.579 .2.1258 1970 Unknown [id number] 2.16.840.1.449284.3.579 .2.1258 1970 Unknown [id number] 2.16.840.1.396539.3.579 .2.1258 1970 Unknown [id number] 2.16.840.1.747053.3.579 .2.1259 1970 Unknown [id number] 2.16.840.1.882582.3.579 .2.1259 1970 Unknown [id number] 2.16.840.1.293277.3.579 .2.1259 1970 Unknown [id number] 2.16.840.1.697160.3.579 .2.1259 1959 Unknown [id number] Social History Date Type Detail Facility Start: 11-19-2023 End: 01-17-2024 Tobacco smoking status NHIS Never smoked tobacco [facility] Start: 11-19-2023 End: 11-27-2024 History of Social function [facility] Start: 11-19-2023 End: 11-27-2024 Tobacco use panel [facility] Start: 1970 Sex Assigned At Not on file [facility] Tobacco smoking status No Smokin g Status Entered [facility] Start: 01-17-2024 Tobacco use and exposure Smoke less tobacco non-user [facility] Start: 08-15-2024 End: 12-04-2024 Alcoholic beverage intake Current drinker of alcohol (finding) [facility] How often do you nee d to have someone help you when you read instructions, pamphlets, or other written material from your doctor or pharmacy [SILS] Never [facility] Do you belong to any clubs or organizations such as adventism groups, unions, fraternal or athletic groups, or school groups? Yes [facility] Are you now , , , , never or living with a partner? [facility] How often to you hav e a drink containing alcohol? 2-4 times a month [facility] How many standard dr inks containing alcohol do you have on a typical day? 5 or 6 [facility] How often do you hav e 6 or more drinks on 1 occasion? Less than monthly [facility] Do you feel stress - tense, restless, nervous, or anxious, or unable to sleep at night because your mind is troubled all the time - these days [OSQ] Not at all [facility] (I/We) worried wheayo er (my/our) food would run out before (I/we) got money to buy more. Never true [facility] In the past 12 month s, was there a time when you were not able to pay the mortgage or rent on time? No [facility] How often do you nee d to have someone help you when you read instructions, pamphlets, or other written material from your doctor or pharmacy [SILS] Never [facility] NEGATED: Highlighted rowStart: IANF History of tobacco use Passive smoker [facility] Clinical Notes 07-18-2024 to 12-04-2024 Shayna Jones NP - 12/04/2024 3:41 PM Wes Jones NP - 12/04/2024 3:30 PM ESTPatient InstructionsTelephone Encounter - Shellygary Eubanks [place] - 10/11/2024 1:40 PM EST Note Date & Type Note Facility 12-04-2024 History of Presen t illness Narrative Associated Problem(s): Primary hypertension (CMS/HCC) Currently taking Losartan 100mg Checks BP at home; Averages are 130/75. Denies orthostatic changes, dizziness, cough, shortness of breath, swelling in extremities. Continue current regimen. Given BP log, advised pt to record BP and bring log back with them to next visit. Images from the original note were not included. Subjective Patient ID: Alexandru Sun is a 53 y.o. male who presents for Follow-up. Hypertension This is a chronic problem. The current episode started more than 1 year ago. The problem has been gradually improving since onset. The problem is controlled. Pertinent negatives include no chest pain, headaches, palpitations or shortness of breath. There are no associated agents to hypertension. Risk factors for coronary artery disease include obesity. There are no compliance problems. HTN: Currently taking Losartan 100mg Checks BP at home; Averages are 130/75. Denies orthostatic changes, dizziness, cough, shortness of breath, swelling in extremities. Continue current regimen. Given BP log, advised pt to record BP and bring log back with them to next visit. Review of Systems Constitutional: Negative for activity change, appetite change, chills, diaphoresis, fatigue, fever and unexpected weight change. HENT: Negative for congestion, ear pain, rhinorrhea, sinus pressure, sinus pain, sneezing, sore throat, trouble swallowing and voice change. Eyes: Negative for visual disturbance. Respiratory: Negative for cough, chest tightness, shortness of breath and wheezing. Cardiovascular: Negative for chest pain, palpitations and leg swelling. Gastrointestinal: Negative for abdominal distention, abdominal pain, blood in stool, constipation, diarrhea and vomiting. Genitourinary: Negative for decreased urine volume, dysuria, flank pain, frequency, hematuria and urgency. Musculoskeletal: Negative for arthralgias, gait problem, joint swelling and myalgias. Skin: Positive for rash. Neurological: Negative for dizziness, tremors, syncope, weakness, light-headedness and headaches. Psychiatric/Behavioral: Negative for decreased concentration and suicidal ideas. The patient is not nervous/anxious. Hematological: Does not bruise/bleed easily. Endocrine: Negative for cold intolerance, heat intolerance, polydipsia, polyphagia and polyuria. Objective Physical Exam Vitals reviewed. Constitutional: Appearance: Normal appearance. HENT: Right Ear: Tympanic membrane normal. Left Ear: Tympanic membrane normal. Nose: Nose normal. Mouth/Throat: Mouth: Mucous membranes are moist. Pharynx: Oropharynx is clear. Eyes: Pupils: Pupils are equal, round, and reactive to light. Cardiovascular: Rate and Rhythm: Normal rate and regular rhythm. Pulses: Normal pulses. Heart sounds: Normal heart sounds. Pulmonary: Effort: Pulmonary effort is normal. Breath sounds: Normal breath sounds. Abdominal: General: Abdomen is flat. Bowel sounds are normal. Palpations: Abdomen is soft. Musculoskeletal: General: Normal range of motion. Skin: General: Skin is warm and dry. Capillary Refill: Capillary refill takes less than 2 seconds. Neurological: Mental Status: He is alert and oriented to person, place, and time. Assessment/Plan Problem List Items Addressed This Visit Primary hypertension (CMS/HCC) - Primary Currently taking Losartan 100mg Checks BP at home; Averages are 130/75. Denies orthostatic changes, dizziness, cough, shortness of breath, swelling in extremities. Continue current regimen. Given BP log, advised pt to record BP and bring log back with them to next visit. Relevant Orders Microalbumin / creatinine urine ratio Comprehensive metabolic panel CBC and differential Elevated random blood glucose level Relevant Orders Hemoglobin A1c Screening for hyperlipidemia Relevant Orders Lipid panel documented in this encounter [facility] 12-04-2024 Instructions Shayna Jones NP - 12/04/2024 3:30 PM EST Contact Dermatology- have allergy testing done as directed by them. FASTING labs ordered. Nothing to eat or drink for 12 hours prior to blood draw. Water and black coffee ok. documented in this encounter [facility] 10-11-2024 Telephone encounter Note Sent to [email or web address] by accident please send to [facility]! Thanks you! [facility] 10-11-2024 Miscellaneous Notes Sent to [email or web address] by accident please send to [facility]! Thanks you! documented in this encounter [facility] 10-09-2024 Telephone encounter Note Pt is now coming in 12/04/2024 Needs a refill on his Cozaar [facility] 10-09-2024 Miscellaneous Notes Pt is now coming in 12/04/2024 Needs a refill on his Cozaar documented in this encounter [facility] 08-14-2024 History of Presen t illness Narrative Images from the original note were not included. HISTORY OF PRESENT ILLNESS: Alexandru Sun is an 53 y.o. @ male. (EST PT) PO RT KNEE SCOPE 07/27/24 (2 WKS 4 DAYS). MOSTLY PARTIAL WB WITH CRUTCHES. HAS TAKEN A FEW STEPS FWB. STATES IT IS FEELING BETTER. STIFFNESS. SORENESS MEDIAL, UP AND DOWN LEG SOME. NO PAIN MEDS. USING ICE. DENIES N/T, SWELLING. DOES NOT WAKE AT HS. DENIES ISSUES WITH INCISIONS. OFF WORK, PT IS A TEACHER. REVIEW OF SYSTEMS: General: Denies fever, fatigue or weight loss Lungs: Denies SOB Cardio: Denies chest pain GI: Denies indigestion or abdominal pain Neuro: Denies numbness or tingling, denies new onset paralysis Musculoskeletal: ( see note) PHYSICAL EXAM: Right Knee Exam Tenderness The patient is experiencing tenderness in the medial joint line (Compartments soft). Range of Motion The patient has normal right knee ROM. Extension: 0 Flexion: 100 (tightness on terminal flexion) Other Erythema: absent Scars: present (Portals well healing, sutures removed, no erythema, drainge or discharge, no dehisence) Sensation: normal Pulse: present Swelling: mild Effusion: consistent with surgery. Comments: Operative lower extremity was noted to be neurovascularly intact. Patient was able to motor feet, toes and ankles in all anatomic planes bilaterally with 5 out of 5 strength. Operative knee's patellar tracking was optimal and quad/ham strength was 5 out of 5 to operative lower extremity. There was no varus valgus, anterior-posterior, or rotatory instability noted to the operative knee. Swelling was well controlled, patella was not ballotable and compartments were soft to the operative lower extremity. Dorsalis pedis and posterior tibial pulses were present and equal bilaterally. There was no evidence of infection or ascending lymphangitis to operative lower extremity. Sensation to light touch was intact to all dermatomes to bilateral lower extremities. Negative Homans and negative Best were noted bilaterally to lower extremities. Incision was healing without evidence of infection Able to ambulate without crutches with minimal pain. Procedures IMAGING: ASSESSMENT: ICD-10-CM 1. Status post arthroscopy of right knee Z98.890 PLAN: s/p Knee Arthroscopy: RT partial medial menisectomy and chondroplasty of right patella. Previous right medial Femoral condyle noted. Plan: Patient is doing well and is ambulating without crutches with mild pain. He is cleared to return to work Wednesday but should avoid any high impact activity, squatting, pivoting and walking/standing for more than 10 minutes. Follow up in 4 weeks for RCK. Questions answered in laymen terms at the bedside. The diagnosis, home exercise plan and any ongoing restrictions/ recommendations reviewed. If unable to be reached in office, I recommend evaluation at nearest Emergency Room if any symptoms worsened or new symptoms develop for requiring urgent evaluation. Merced Mccall, LIANA-UPHOLSTERY MECHANIC documented in this encounter [facility] 08-09-2024 History of Presen t illness Narrative Images from the original note were not included. HISTORY OF PRESENT ILLNESS: Alexandru Sun is an 53 y.o. @ male. 1ST PO RT KNEE SCOPE 07/27/24 (1 WK 6 DAYS). WALKING WITH CRUTCHES, TTWB. SORE AND STIFFNESS. NO PAIN MEDS. USING ICE. DENIES N/T. SWELLING. DOES NOT WAKE AT HS. DENIES DRAINAGE. STITCHES INTACT, REMOVED TODAY. INCISIONS HEALING WELL. OFF WORK, PT IS A TEACHER. REVIEW OF SYSTEMS: General: Denies fever, fatigue or weight loss Lungs: Denies SOB Cardio: Denies chest pain GI: Denies indigestion or abdominal pain Neuro: Denies numbness or tingling, denies new onset paralysis Musculoskeletal: ( see note) PHYSICAL EXAM: Right Knee Exam Tenderness The patient is experiencing tenderness in the medial joint line (Compartments soft). Range of Motion The patient has normal right knee ROM. Extension: 0 Flexion: 100 (tightness on terminal flexion) Other Erythema: absent Scars: present (Portals well healing, sutures removed, no erythema, drainge or discharge, no dehisence) Sensation: normal Pulse: present Swelling: mild Effusion: effusion (consistent with surgery) present Comments: Operative lower extremity was noted to be neurovascularly intact. Patient was able to motor feet, toes and ankles in all anatomic planes bilaterally with 5 out of 5 strength. Operative knee's patellar tracking was optimal and quad/ham strength was 5 out of 5 to operative lower extremity. There was no varus valgus, anterior-posterior, or rotatory instability noted to the operative knee. Swelling was well controlled, patella was not ballotable and compartments were soft to the operative lower extremity. Dorsalis pedis and posterior tibial pulses were present and equal bilaterally. There was no evidence of infection or ascending lymphangitis to operative lower extremity. Sensation to light touch was intact to all dermatomes to bilateral lower extremities. Negative Homans and negative Best were noted bilaterally to lower extremities. Incision was healing without evidence of infection Using crutches and NWB due to previous medial femoral condyle fracture. Procedures IMAGING: ASSESSMENT: ICD-10-CM 1. Status post arthroscopy of right knee Z98.890 2. Nondisplaced fracture of medial condyle of right femur, subsequent encounter for closed fracture with routine healing S72.434D PLAN: s/p Knee Arthroscopy: RT partial medial menisectomy and chondroplasty of right patella. Previous right medial Femoral condyle noted. Plan: Discussed surgery and reviewed surgical images. I recommend he start gradual partial weightbearing on right leg with use of crutches as his pain has improved and ROM is improving. No deep squatting or pivoting with operative knee. Continue working on ROM. Follow up next week for RCK. Consider WBAT if progressing well. Questions answered in laymen terms at the bedside. The diagnosis, home exercise plan and any ongoing restrictions/ recommendations reviewed. If unable to be reached in office, I recommend evaluation at nearest Emergency Room if any symptoms worsened or new symptoms develop for requiring urgent evaluation. Merced Mccall APRN-UPHOLSTERY MECHANIC documented in this encounter [facility] 07-26-2024 Telephone encounter Note Patient needs post op pain meds [facility] 07-26-2024 Miscellaneous Notes Patient needs post op pain meds documented in this encounter [facility] 07-26-2024 Telephone encounter Note Needs post op pain meds [facility] 07-26-2024 Miscellaneous Notes Needs post op pain meds documented in this encounter [facility] 07-26-2024 Telephone encounter Note Post op pain rx. PDMP reviewed [facility] 07-26-2024 Miscellaneous Notes Post op pain rx. PDMP reviewed documented in this encounter [facility] 07-25-2024 Telephone encounter Note Noted per Valentin he has crutches / walker at home. [facility] 07-25-2024 Miscellaneous Notes Noted per Valentin he has crutches / walker at home. documented in this encounter [facility] 07-18-2024 History of Presen t illness Narrative Images from the original note were not included. GENERAL HISTORY AND PHYSICAL: NAME: Alexandru Sun : 1970 HISTORY OF PRESENT ILLNESS: Alexandru Sun is an 53 y.o. @ male. Here for surgery instructions - (R) KNEE SCOPE 07/27/2024 @[facility] PAST MEDICAL HISTORY: Past Medical History: Diagnosis Date Acute torn meniscus Dyslipidemia (CMS/HCC) Seasonal allergic rhinitis due to pollen Vitamin D deficiency PAST SURGICAL HISTORY: Past Surgical History: Procedure Laterality Date TONSILLECTOMY SOCIAL HISTORY: Social History Occupational History Not on file Tobacco Use Smoking status: Never Passive exposure: Never Smokeless tobacco: Never Vaping Use Vaping status: Never Used Substance and Sexual Activity Alcohol use: Yes Alcohol/week: 6.0 standard drinks of alcohol Types: 6 Cans of beer per week Drug use: Not Currently Sexual activity: Defer ALLERGIES: No Known Allergies MEDICATIONS: Current Outpatient Medications Medication Instructions amoxicillin-clavulanate (Augmentin) 200-28.5 MG chewable tablet Oral clotrimazole (Lotrimin) 1 % cream Topical, 2 times daily fluticasone (Flonase) 50 MCG/ACT nasal spray 2 sprays, Each Nostril, Daily losartan (COZAAR) 100 mg, Oral, Daily montelukast (SINGULAIR) 10 mg, Oral, Nightly predniSONE (Deltasone) 10 MG tablet REVIEW OF SYSTEMS: Review of Systems Vitals: Body mass index is 32.05 kg/m . PHYSICAL EXAM: Physical Exam Constitutional: General: He is not in acute distress. Appearance: Normal appearance. HENT: Head: Normocephalic and atraumatic. Right Ear: External ear normal. Left Ear: External ear normal. Nose: Nose normal. No rhinorrhea. Mouth/Throat: Mouth: Mucous membranes are moist. Pharynx: No posterior oropharyngeal erythema. Eyes: Extraocular Movements: Extraocular movements intact. Conjunctiva/sclera: Conjunctivae normal. Cardiovascular: Rate and Rhythm: Normal rate and regular rhythm. Pulses: Normal pulses. Heart sounds: No murmur heard. Pulmonary: Effort: Pulmonary effort is normal. No respiratory distress. Breath sounds: Normal breath sounds. No wheezing or rhonchi. Abdominal: Palpations: Abdomen is soft. Tenderness: There is no abdominal tenderness. Musculoskeletal: Cervical back: Normal range of motion and neck supple. Lymphadenopathy: Cervical: No cervical adenopathy. Skin: General: Skin is warm and dry. Findings: No erythema or rash. Neurological: General: No focal deficit present. Mental Status: He is alert and oriented to person, place, and time. Psychiatric: Mood and Affect: Mood normal. Behavior: Behavior normal. No orders of the defined types were placed in this encounter. ASSESSMENT: ICD-10-CM 1. Pre-op examination Z01.818 PLAN: This patient presents for preadmission testing for upcoming surgery. Complete history with medical, surgery, and current allergy and medication list obtained. Consent for surgery signed and witnessed after verbal consent to perform surgery received. All questions answered and proposed surgery scheduled. (R) KNEE SCOPE 07/27 @[facility] MINOR INSTRUCTIONS GIVEN TODAY 07/18 @3PM - [place] HAS WALKER / CRUTCHES AT HOME Follow up for 08/09 @10AM W/MERCED IN [place]. documented in this encounter [facility] Evaluation + Plan note No data available for this section [facility] Evaluation note Diagnosis Chronic pain of left knee- Primary [facility] Diagnosis Chronic pain of left knee- Primary [facility] Diagnosis Blood pressure elevated without history of HTN- Primary Rash Rash and other nonspecific skin eruption Chronic pain of left knee Right maxillary sinusitis, chronic Trigger finger of right hand, unspecified finger Acquired deviated nasal septum Deviated nasal septum Blood pressure elevated without history of HTN- Primary Chronic pain of left knee Acquired deviated nasal septum Deviated nasal septum Trigger finger of right hand, unspecified finger Primary hypertension (CMS/HCC)- Primary Unspecified essential hypertension Rash Rash and other nonspecific skin eruption Acute pain of right knee- Primary Acute pain of right knee- Primary Primary hypertension (CMS/HCC)- Primary Unspecified essential hypertension Yeast dermatitis Primary hypertension (CMS/HCC) Unspecified essential hypertension [facility] Diagnosis Status post arthroscopy of right knee- Primary Other postprocedural status [facility] Diagnosis Nasal polyp- Primary Unspecified nasal polyp [facility] Diagnosis Pre-op examination- Primary [facility] Diagnosis Acute pain of right knee- Primary [facility] Diagnosis Post-operative pain- Primary Other acute postoperative pain [facility] Diagnosis Status post arthroscopy of right knee- Primary Other postprocedural status Nondisplaced fracture of medial condyle of right femur, subsequent encounter for closed fracture with routine healing [facility] Diagnosis Blood pressure elevated without history of HTN- Primary Rash Rash and other nonspecific skin eruption Chronic pain of left knee Right maxillary sinusitis, chronic Trigger finger of right hand, unspecified finger Acquired deviated nasal septum Deviated nasal septum Blood pressure elevated without history of HTN- Primary Chronic pain of left knee Acquired deviated nasal septum Deviated nasal septum Trigger finger of right hand, unspecified finger Primary hypertension (CMS/HCC)- Primary Unspecified essential hypertension Rash Rash and other nonspecific skin eruption Acute pain of right knee- Primary Acute pain of right knee- Primary Primary hypertension (CMS/HCC)- Primary Unspecified essential hypertension Yeast dermatitis Primary hypertension (CMS/HCC)- Primary Unspecified essential hypertension Elevated random blood glucose level Screening for hyperlipidemia Screening for lipoid disorders [facility] Diagnosis Blood pressure elevated without history of HTN- Primary Rash Rash and other nonspecific skin eruption Chronic pain of left knee Right maxillary sinusitis, chronic Trigger finger of right hand, unspecified finger Acquired deviated nasal septum Deviated nasal septum Blood pressure elevated without history of HTN- Primary Chronic pain of left knee Acquired deviated nasal septum Deviated nasal septum Trigger finger of right hand, unspecified finger Primary hypertension (CMS/HCC)- Primary Unspecified essential hypertension Rash Rash and other nonspecific skin eruption Acute pain of right knee- Primary Acute pain of right knee- Primary Primary hypertension (CMS/HCC)- Primary Unspecified essential hypertension Yeast dermatitis Primary hypertension (CMS/HCC)- Primary Unspecified essential hypertension Elevated random blood glucose level Screening for hyperlipidemia Screening for lipoid disorders Nasal polyp Unspecified nasal polyp Chronic pansinusitis Other chronic sinusitis [facility] Diagnosis Blood pressure elevated without history of HTN- Primary Rash Rash and other nonspecific skin eruption Chronic pain of left knee Right maxillary sinusitis, chronic Trigger finger of right hand, unspecified finger Acquired deviated nasal septum Deviated nasal septum Blood pressure elevated without history of HTN- Primary Chronic pain of left knee Acquired deviated nasal septum Deviated nasal septum Trigger finger of right hand, unspecified finger Primary hypertension (CMS/HCC)- Primary Unspecified essential hypertension Rash Rash and other nonspecific skin eruption Acute pain of right knee- Primary Acute pain of right knee- Primary Primary hypertension (CMS/HCC)- Primary Unspecified essential hypertension Yeast dermatitis Primary hypertension (CMS/HCC)- Primary Unspecified essential hypertension Elevated random blood glucose level Screening for hyperlipidemia Screening for lipoid disorders Primary hypertension (CMS/HCC)- Primary Unspecified essential hypertension Vitamin D deficiency Class 1 obesity due to excess calories with body mass index (BMI) of 33.0 to 33.9 in adult, unspecified whether serious comorbidity present Screening PSA (prostate specific antigen) Special screening for malignant neoplasm of prostate [facility]* Maren Bourne MD - 08/15/2024 9:50 AM EDT Subjective Patient ID: Alexandru Sun is a 53 y.o. male who presents for Sinusitis (1 month recheck sinuses) Sx resolved Family History Problem Relation Name Age of Onset Diabetes Mother Hypertension Mother Diabetes Father Hypertension Father Heart failure Father Active Ambulatory Problems Diagnosis Date Noted Vitamin D deficiency 11/23/2023 Rash 11/23/2023 Chronic pain of left knee 11/23/2023 Right maxillary sinusitis, chronic 11/23/2023 Trigger finger of right hand 11/23/2023 Acquired deviated nasal septum 11/24/2023 Nasal polyp 02/28/2024 Chronic pansinusitis 02/28/2024 Primary hypertension (CMS/HCC) 11/23/2023 Acute pain of right knee 06/05/2024 Closed nondisplaced fracture of condyle of right femur (CMS/HCC) 06/28/2024 Acute torn meniscus of knee, right, subsequent encounter 07/11/2024 Yeast dermatitis 07/11/2024 Resolved Ambulatory Problems Diagnosis Date Noted No Resolved Ambulatory Problems Past Medical History: Diagnosis Date Acute torn meniscus Dyslipidemia (CMS/HCC) Seasonal allergic rhinitis due to pollen Past Surgical History: Procedure Laterality Date KNEE SURGERY Right 07/27/2024 RT partial medial menisectomy and chondroplasty of right patella - Dr Stepanic TONSILLECTOMY No Known Allergies Current Outpatient Medications on File Prior to Visit Medication Sig Dispense Refill fluticasone (Flonase) 50 MCG/ACT nasal spray Administer 2 sprays into each nostril Daily 48 mL 3 losartan (Cozaar) 100 MG tablet Take 1 tablet (100 mg) by mouth Daily 90 tablet 1 montelukast (Singulair) 10 MG tablet Take 1 tablet (10 mg) by mouth at bedtime 90 tablet 3 [DISCONTINUED] amoxicillin-clavulanate (Augmentin) 200-28.5 MG chewable tablet Chew [DISCONTINUED] predniSONE (Deltasone) 10 MG tablet [] clotrimazole (Lotrimin) 1 % cream Apply topically 2 (two) times a day for 28 days 30 g 2 No current facility-administered medications on file prior to visit. Objective Last Recorded Vitals Vitals: 08/15/24 0917 BP: 141/86 ENT Physical Exam Nose Nose comments: Scant polyposis Assessment/Plan Diagnoses and all orders for this visit: Nasal polyp Excellent response. Pt to be more diligent with regimen. Recheck in 3 mo and consider budesonide ordupixent if recurs [facility] No data available for this section [facility] No data available for this section [facility] Summary Purpose Family History No Family History Records Found No data available for this section No Family History Records FoundNo Family History Records FoundNo Family History Records Found Advance Directives No Advanced Directives Records FoundNo Advanced Directives Records FoundNo Advanced Directives Records FoundNo Advanced Directives Records Found Additional Source Comments (unrecognized sect ion and content) No Status Records FoundNo Status Records FoundNo Status Records FoundNo Status Records Found INFORMATION SOURCE (unrecogn ized section and content) DATE CREATED AUTHOR 07/29/2022 [facility] DATE CREATED AUTHOR AUTHOR'S ORGANIZ ATION 04/04/2024 [facility] DATE CREATED AUTHOR AUTHOR'S ORGANIZ ATION 06/29/2024 [facility] DATE CREATED AUTHOR AUTHOR'S ORGANIZ ATION 12/10/2024 [facility] dical Specialists [employer] Care Teams (unrecognized sec tion and content) Wheelchair Rental Clerk Relationship Specialty Start Date End Date Leroy Barba MD PCP - General Family Medicine 11/19/23 Wheelchair Rental Clerk Relationship Specialty Start Date End Date Leroy Barba MD PCP - General Family Medicine 11/19/23 Wheelchair Rental Clerk Relationship Specialty Start Date End Date Leroy Barba MD PCP - General Family Medicine 11/19/23 Wheelchair Rental Clerk Relationship Specialty Start Date End Date Leroy Barba MD PCP - General Family Medicine 11/19/23 Wheelchair Rental Clerk Relationship Specialty Start Date End Date Leroy Barba MD [address] [place] [address] PCP - General Family Medicine 02/22/24 Shaikh Hudson MD [address] [place] [address] PCP - Medical [employer] 07/30/15 11/28/99 Shayna Jones NP [address] [place] [address] Nurse Practitioner Family Medicine 06/28/24 Wheelchair Rental Clerk Relationship Specialty Start Date End Date Leroy Barba MD [address] [place] [address] PCP - General Family Medicine 02/22/24 Shaikh Hudosn MD [address] [place] [address] PCP - Medical [employer] 07/30/15 11/28/99 Shayna Jones NP [address] [place] [address] Nurse Practitioner Family Medicine 06/28/24 Wheelchair Rental Clerk Relationship Specialty Start Date End Date Leroy Barba MD [address] [place] [address] PCP - General Family Medicine 02/22/24 Shaikh Hudson MD [address] [place] [address] PCP - Medical [employer] 07/30/15 11/28/99 Shayna Jones NP [address] [place] [address] Nurse Practitioner Family Medicine 06/28/24 Wheelchair Rental Clerk Relationship Specialty Start Date End Date Leroy Barba MD [address] [place] [address] PCP - General Family Medicine 02/22/24 Shaikh Hudson MD [address] [place] [address] PCP - Medical [employer] 07/30/15 11/28/99 Shayna Jones NP [address] [place] [address] Nurse Practitioner Family Medicine 06/28/24 Wheelchair Rental Clerk Relationship Specialty Start Date End Date Leroy Barba MD [address] [place] [address] PCP - General Family Medicine 02/22/24 Shaikh Hudson MD [address] [place] [address] PCP - Medical [employer] 07/30/15 11/28/99 Shayna Jones NP [address] [place] [address] Nurse Practitioner Family Medicine 06/28/24 Wheelchair Rental Clerk Relationship Specialty Start Date End Date Leroy Barba MD [address] [place] [address] PCP - General Family Medicine 02/22/24 Shaikh Hudson MD [address] [place] [address] PCP - Medical [employer] 07/30/15 11/28/99 Shayna Jones NP [address] [place] [address] Nurse Practitioner Family Medicine 06/28/24 Wheelchair Rental Clerk Relationship Specialty Start Date End Date Leroy Barba MD [address] [place] [address] PCP - General Family Medicine 02/22/24 Shaikh Hudson MD [address] [place] [address] PCP - Medical [employer] 07/30/15 11/28/99 Shayna Jones, THOM [address] [place] [address] Nurse Practitioner Family Medicine 06/28/24 Wheelchair Rental Clerk Relationship Specialty Start Date End Date Leroy Barba MD [address] [place] [address] PCP - General Family Medicine 02/22/24 Shaikh Hudson MD [address] [place] [address] PCP - Medical [employer] 07/30/15 11/28/99 Shayna Jones NP [address] [place] [address] Nurse Practitioner Family Medicine 06/28/24 Wheelchair Rental Clerk Relationship Specialty Start Date End Date Leroy Barba MD [address] [place] [address] PCP - General Family Medicine 02/22/24 Shaikh Hudson MD [address] [place] [address] PCP - Medical [employer] 07/30/15 11/28/99 Shayna Jones NP [address] [place] [address] Nurse Practitioner Family Medicine 06/28/24 Wheelchair Rental Clerk Relationship Specialty Start Date End Date Leroy Barba MD [address] [place] [address] PCP - General Family Medicine 02/22/24 Shaikh Hudson MD [address] [place] [address] PCP - Medical [employer] 07/30/15 11/28/99 Shayna Jones NP [address] [place] [address] Nurse Practitioner Family Medicine 06/28/24 Reason for Visit (unrecogniz ed section and content) Specialty Diagnoses / Procedures Referred By Contac t Referred To Contact Physical Therapy Diagnoses Pain in left knee Other chronic pain Procedures [facility] PHYSICAL THERAPY EVALUATION HIGH COMPLEX 45 MINS Shaikh Hudson MD [address] [place] [address] Kori Rubio, PT [address] [place] [address] Referral ID Status Reason Start Date Expiration Date V isits Requested Visits Authorized [id number] Authorized 12/20/2023 06/17/2024 20 20 Reason Onset Date Comments Med Refill 10/09/2024 Reason Onset Date Comments Med Refill 10/11/2024 Reason Comments Follow-up Reason Comments Sinusitis 1 month recheck sinu ses Reason Comments Pain Reason Onset Date Comments re: Cancellation 07/25/2024 Tried to contac t re: cx of crutch-train / dispense that was scheduled 07/12 w/ upcoming sx on 07/27/24. I had to lm requesting a call to check status and to seek cx details. Reason Comments Post-op Reason Comments Med Refill FOR RECORDS PERTAINING TO PATIENTS WHO ARE OR HAVE BEEN ENROLLED IN A CHEMICAL DEPENDENCY/SUBSTANCEABUSE PROGRAM, SOME INFORMATION MAY BE OMITTED. This clinical summary was aggregated from multiple sources. Caution should be exercised in using it in the provision of clinical care. This summary normalizes information from multiple sources, and as a consequence, information in this document may materially change the coding, format and clinical context of patient data. In addition, data may be omitted in some cases. CLINICAL DECISIONS SHOULD BE BASED ON THE PRIMARY CLINICAL RECORDS. [employer] provides no warranty or guarantee of the accuracy or completeness of information in this document.
[2025-06-18 07:57] LABS: Hematocrit 37.8 % (42.0-54.0); Hemoglobin 12.9 g/dL (14.0-18.0); Immature Granulocytes Abs Auto 0.02 10^3/uL (0.00-0.03); Immature Granulocytes Pct Auto 0.3 % (0.0-0.5); Lymphocytes Absolute Auto 2.3 10^3/uL (1.2-3.8); Mean Corpuscular HGB Conc 34.1 g/dL (29.9-35.2); Mean Corpuscular Hemoglobin 31.4 pg (25.9-34.0); Mean Corpuscular Volume 92.0 fL (80.0-94.0); Platelet Count 357 10^3/uL (150-450); Red Blood Count 4.11 10^6/uL (4.70-6.10); White Blood Count 7.7 10^3/uL (4.0-11.0)
[2025-06-18 08:38] LABS: Alanine Aminotransferase 37 U/L (16-63); Albumin Globulin Ratio 1.1; Albumin Level 3.7 g/dL (3.4-5.0); Alkaline Phosphatase 79 U/L (46-116); Anion Gap 14.3; Aspartate Amino Transferase 17 U/L (15-37); Blood Urea Nitrogen 15.0 mg/dL (7.0-18.0); Calcium 9.0 mg/dL (8.5-10.1); Carbon Dioxide 25.2 mmol/L (21.0-32.0); Chloride 108 mmol/L (98-107); Cholesterol 162 mg/dL (<=200); Estimated GFR (African America >60 (>=60 mL/min/1.73m^2); Estimated GFR (Non-African Ame >60 (>=60 mL/min/1.73m^2); Globulin 3.3 g/dL; Glucose 155 mg/dL (74-106); HDL Cholesterol 36 mg/dL (40-60); Potassium 4.5 mmol/L (3.5-5.1); Sodium 143 mmol/L (136-145); Thyroid Stimulating Hormone 2.901 uIU/mL (0.358-3.740); Total Protein 7.0 g/dL (6.4-8.2); Triglycerides 115 mg/dL (<=150); VLDL CHOLESTEROL 23.0 mg/dL
== END 2025-06-18 07:34 | disposition home or self-care (01) ==
LOC: LAB 07:35
PROVIDERS: PCP Nurse Practitioner; Visit Provider Nurse Practitioner
DX: E55.9 Vitamin D deficiency, unspecified (principal); I10 Essential (primary) hypertension; E66.811 Obesity, class 1; Z68.33 Body mass index [BMI] 33.0-33.9, adult; E66.09 Other obesity due to excess calories; Z12.5 Encounter for screening for malignant neoplasm of prostate
CPT/HCPCS: 36415; 80053; 80061; 82043; 82306; 82570; 84443; 85025; G0103

== ENCOUNTER 2025-06-20 10:42 | Outpatient (OUT) | payer OTHER, SELFPAY ==
--- OUTSIDE RECORDS SUMMARY | 2025-06-20 09:00 | XMS_ITS | Encounter Summary ---
Author Organization [facility] Address [address] [place] [address] Care Team Providers Care Web Mobile Designer Name Role Phone Leroy Ashby MD Primary Care Provider [phone] Shaikh HU Hudson Unavailable [phone] Shayna Jones NP Unavailable [phone] Reason for Visit * Reason Comments Hypertension Encounter Details Date Type Department Care Team (Late st Contact Info) Description 06/20/2025 9:00 AM EDT Office Visit [facility] [address] [place] [address] Melissa Moeller NP [address] [place] [address] Type 2 diabetes mellitus without complication, without long-term current use of insulin (HCC) (Primary Dx); Primary hypertension ; Elevated PSA, less than 10 ng/ml; Class 1 obesity due to excess calories with body mass index (BMI) of 33.0 to 33.9 in adult, unspecified whether serious comorbidity present; Abnormal glucose level; Dysuria; Iron deficiency anemia, unspecified iron deficiency anemia type Social History Tobacco Use Types Packs/Day Years Used Date Smoking Tobacco: Never Passive Smoke Exposure: Never Smokeless Tobacco: Never Alcohol Use Standard Drinks/Week Comments Yes 6 (1 standard drink = 0.6 oz pur e alcohol) B1300 Health Literacy Answer Date Recor ded How often do you need to hav e someone help you when you read instructions, pamphlets, or other written material from your doctor or pharmacy? Never 11/27/2024 Social Connection and Isolat ion Panel [NHANES] Answer Date Recorded In a typical week, how many times do you talk on the phone with family, friends, or neighbors? Three times a week 11/27/2024 How often do you get togethe r with friends or relatives? More than three times a week 11/27/2024 How often do you attend chur or moravian services? More than 4 times per year 11/27/2024 Do you belong to any clubs o r organizations such as nondenominational groups, unions, fraternal or athletic groups, or school groups? Yes 11/27/2024 How often do you attend meet ings of the clubs or organizations you belong to? More than 4 times per year 11/27/2024 Are you , , di vorced, , never , or living with a partner? 11/27/2024 AUDIT-C Answer Date Recorded Q1: How often do you have a drink containing alc ohol? 2-4 times a month 11/27/2024 Q2: How many drinks containi ng alcohol do you have on a typical day when you are drinking? 5 or 6 11/27/2024 Q3: How often do you have si x or more drinks on one occasion? Less than monthly 11/27/2024 Overall Financial Resource Strain (CARDIA) Answe r Date Recorded How hard is it for you to pa y for the very basics like food, housing, medical care, and heating? Not hard at all 11/27/2024 PHQ-2 Answer Date Recorded Patient Health Questionnaire-2 Score 0 07/11/2024 [facility] - Occupational Stress Questionnaire Answer Date Recorded Do you feel stress - tense, restless, nervous, or anxious, or unable to sleep at night because your mind is troubled all the time - these days? Not at all 11/27/2024 Exercise Vital Sign Answer Date Recorde d On average, how many days pe r week do you engage in moderate to strenuous exercise (like a brisk walk)? 5 days 11/27/2024 On average, how many minutes do you engage in exercise at this level? 50 min 11/27/2024 Hunger Vital Sign Answer Date Recorded Within the past 12 months, y ou worried that your food would run out before you got the money to buy more. Never true 11/27/20 24 Within the past 12 months, t he food you bought just didn't last and you didn't have money to get more. Never true 11/27/2024 PRAPARE - Transportation Answer Date Re corded In the past 12 months, has l ack of transportation kept you from medical appointments or from getting medications? No 10/31 In the past 12 months, has l ack of transportation kept you from meetings, work, or from getting things needed for daily living? No 11/27/[address] Vital Sign Answer Lane e Recorded In the last 12 months, was t here a time when you were not able to pay the mortgage or rent on time? No 11/27/2024 Number of Times Moved in the Last Year Not on fi le 11/27/2024 At any time in the past 12 m [facility], were you homeless or living in a fpc (including now)? No 11/27/2024 Sex and Gender Information Value Date Recorded Sex Assigned at Not on file Legal Sex Male 1:04 PM EST Gender Identity Not on file Sexual Orientation Not on file documented as of this encounter Last Filed Vital Signs Vital Sign Reading Time Taken Comments Blood Pressure 132/82 06/20/2025 9:05 AM EDT Pulse 76 06/20/2025 9:05 AM EDT Temperature 36.8 C (98.2 F) 06/20/2025 9:05 AM EDT Respiratory Rate 18 06/20/2025 9:05 AM EDT Oxygen Saturation 97% 06/20/2025 9:05 AM EDT Inhaled Oxygen Concentration - - Weight 97.7 kg (215 lb 6.4 oz) 06/20/2025 9:05 A M EDT Height - - Body Mass Index 32.75 12/04/2024 3:24 PM EST documented in this encounter Patient Instructions * Patient Instructions* Melissa Moeller, THOM - 06/20/2025 9:00 AM EDT You have type 2 diabetes: at this point I would like to give you 3 months to try to change diet : cut back on sugary drinks/foods, as well as carbohydrates (bread, pasta, potatoes), I would also likeyou to cut back on alcohol consumption as well, and exercise 5 times weekly about 30 minutes each Urine: I will order culture for urine and have you take antibiotic as well Elevated PSA: we will recheck PSA level in 1 month documented in this encounter Progress Notes * Melissa Moeller NP - 06/20/2025 10:33 AM EDTAssociated Problem(s): Iron deficiency anemia Check Vit b12, iron, ferritin etc * Melissa Moeller NP - 06/20/2025 10:31 AM EDTAssociated Problem(s): Dysuria Took at home test +UTI, has seen some blood No new sexual partners Will treat with bactrim Needs to provide urine sample prior to starting atb * Melissa Moeller NP - 06/20/2025 9:32 AM EDTAssociated Problem(s): Type 2 diabetes mellitus, without long-term current use of insulin (HCC) New onset Will try 3 months of life style modifications: cut back on carbs, ETOH, as well as sugary drinks/foods Exercise 5 times week for 30 minutes Weight loss A1c 7.1% 06/20/25 * ELIZABET SUGGS - 06/20/2025 9:00 AM EDT Pt last seen in office 12/04/24 HTN: losartan 100mg, checks bp at home 130/75 avg Pt is about 125-130/74-80 Pt has also been check sugar Pt would like to do a urine dip/urine he is having burning and pain He did do a urine dip at home that looked to have blood in his urine. He has already urinated before coming in but still needs to do the urine portion of his labs still- do you want to add a urine culture? Pt wakes up between 3-6am glucose usually runs 90-107 Pt still has rash under arms and abdominal folds * Melissa Moeller NP - 06/20/2025 9:00 AM EDT Images from the original note were not included. Alexandru Sun is a 54 y.o. male presents with chief complaint of Hypertension HPI: Pt last seen in office 12/04/24 HTN: losartan 100mg, checks bp at home 130/75 avg Pt is about 125-130/74-80 Pt has also been check sugar Pt would like to do a urine dip/urine he is having burning and pain He did do a urine dip at home that looked to have blood in his urine. He has already urinated before coming in but still needs to do the urine portion of his labs still- do you want to add a urine culture? Pt wakes up between 3-6am glucose usually runs 90-107 Pt still has rash under arms and abdominal folds Hypertension This is a chronic problem. The current episode started more than 1 year ago. The problem is unchanged. The problem is controlled. Pertinent negatives include no headaches, orthopnea, palpitations, peripheral edema or shortness of breath. There are no associated agents to hypertension. Risk factors for coronary artery disease include diabetes mellitus, obesity and male gender. Past treatments include angiotensin blockers. The current treatment provides significant improvement. There are no compliance problems. There is no history of CAD/TX, heart failure or PVD. Diabetes He presents for his initial diabetic visit. He has type 2 diabetes mellitus. There are no hypoglycemic associated symptoms. Pertinent negatives for hypoglycemia include no dizziness, headaches, nervousness/anxiousness, seizures or tremors. Pertinent negatives for diabetes include no foot paresthesias, no polydipsia, no polyphagia, no polyuria and no weakness. There are no hypoglycemic complications. There are no diabetic complications. Pertinent negatives for diabetic complications include no PVD. Risk factors for coronary artery disease include hypertension, male sex and obesity. When asked about current treatments, none were reported. An TIANA inhibitor/angiotensin II receptor dale is being taken. UTI This is a new problem. The current episode started in the past 7 days. The problem is unchanged. Associated symptoms include hematuria. Pertinent negatives include no pain. SUBJECTIVE: MEDICATIONS: Current Outpatient Medications Medication Instructions fluticasone (Flonase) 50 MCG/ACT nasal spray 2 sprays, Each Nostril, Daily losartan (COZAAR) 100 mg, Oral, Daily montelukast (SINGULAIR) 10 mg, Oral, Nightly sulfamethoxazole-trimethoprim (Bactrim DS) 800-160 MG per tablet 1 tablet, Oral, Every 12 hours ALLERGIES: No Known Allergies REVIEW OF SYMPTOMS: Review of Systems Constitutional: Negative for activity change, appetite change and unexpected weight change. HENT: Negative for ear pain, nosebleeds, sneezing, trouble swallowing and voice change. Eyes: Negative for pain, discharge and visual disturbance. Respiratory: Negative for apnea, chest tightness, shortness of breath and wheezing. Cardiovascular: Negative for palpitations, orthopnea and leg swelling. Gastrointestinal: Negative for abdominal distention, blood in stool, constipation and diarrhea. Genitourinary: Positive for dysuria, hematuria and urgency. Negative for decreased urine volume anddifficulty urinating. Skin: Negative for color change. Neurological: Negative for dizziness, tremors, seizures, weakness and headaches. Psychiatric/Behavioral: Negative for agitation, decreased concentration, hallucinations, self-injury and suicidal ideas. The patient is not nervous/anxious. Hematological: Negative for adenopathy. Does not bruise/bleed easily. Endocrine: Negative for cold intolerance, heat intolerance, polydipsia, polyphagia and polyuria. Allergic/Immunologic: Negative for environmental allergies and food allergies. PAST MEDICAL HISTORY Past Medical History: Diagnosis Date Acute torn meniscus Dyslipidemia Seasonal allergic rhinitis due to pollen Vitamin D deficiency Past Surgical History: Procedure Laterality Date KNEE SURGERY Right 07/27/2024 RT partial medial menisectomy and chondroplasty of right patella - Dr Whyte TONSILLECTOMY family history includes Diabetes in his father and mother; Heart failure in his father; Hypertension in his father and mother. OBJECTIVE: Visit Vitals BP 132/82 (BP Location: Left arm, Patient Position: Sitting, BP Cuff Size: Large adult) Pulse 76 Temp 98.2 ??F (Temporal) Resp 18 Wt 215 lb 6.4 oz SpO2 97% BMI 32.75 kg/m?? Smoking Status Never BSA 2.16 m?? Physical Exam Vitals and nursing note reviewed. Constitutional: Appearance: Normal appearance. HENT: Head: Normocephalic. Right Ear: External ear normal. Left Ear: External ear normal. Nose: Nose normal. Mouth/Throat: Mouth: Mucous membranes are moist. Pharynx: Oropharynx is clear. Eyes: Extraocular Movements: Extraocular movements intact. Conjunctiva/sclera: Conjunctivae normal. Neck: Vascular: Carotid bruit present. Cardiovascular: Rate and Rhythm: Normal rate and regular rhythm. Pulses: Normal pulses. Heart sounds: Normal heart sounds. Pulmonary: Effort: Pulmonary effort is normal. Breath sounds: Normal breath sounds. No wheezing or rhonchi. Abdominal: General: Bowel sounds are normal. There is no distension. Palpations: Abdomen is soft. Tenderness: There is no abdominal tenderness. There is no rebound. Musculoskeletal: Cervical back: Neck supple. Right lower leg: No edema. Left lower leg: No edema. Lymphadenopathy: Cervical: No cervical adenopathy. Skin: General: Skin is warm and dry. Capillary Refill: Capillary refill takes 2 to 3 seconds. Neurological: General: No focal deficit present. Mental Status: He is alert. Psychiatric: Mood and Affect: Mood normal. Behavior: Behavior normal. Thought Content: Thought content normal. Judgment: Judgment normal. ASSESSMENT AND PLAN: Follow up in about 3 months (around 09/20/2025) for Recheck. Problem List Items Addressed This Visit Primary hypertension - Primary Please check blood pressure daily and record DASH diet Limit caffeine Take medication as directed Contact office if chest pain, pressure, dizziness, shortness of breath, swelling legs Recommend slow position changes Current med: losartan Class 1 obesity due to excess calories in adult Discussed with patient their BMI (actual, verses recommended). We have also discussed lifestyle modifications: attempts to perform physical activity as chronic conditions allow, also to monitor dietary intake: increasing protein/fruits/veggies and lowering carb intake (unless contraindicated). Limit sodas, juices, and sugary drinks. Elevated PSA, less than 10 ng/ml Screening PSA: 3.85 06/18/25, this seems to be a bit high for base line level Will order free PSA will do this in 1 month Dysuria may be related to prostate Dysuria Took at home test +UTI, has seen some blood No new sexual partners Will treat with bactrim Needs to provide urine sample prior to starting atb Relevant Medications sulfamethoxazole-trimethoprim (Bactrim DS) 800-160 MG per tablet Other Relevant Orders Urine culture (clean catch) Type 2 diabetes mellitus, without long-term current use of insulin (HCC) New onset Will try 3 months of life style modifications: cut back on carbs, ETOH, as well as sugary drinks/foods Exercise 5 times week for 30 minutes Weight loss A1c 7.1% 06/20/25 Iron deficiency anemia Check Vit b12, iron, ferritin etc Relevant Orders Iron + transferrin + TIBC Ferritin Vitamin B12 Other Visit Diagnoses Abnormal glucose level Relevant Orders POCT glycosylated hemoglobin (Hb A1C) docked device (Completed) * Melissa Moeller NP - 06/20/2025 7:05 AM EDTAssociated Problem(s): Class 1 obesity due to excess calories in adult Discussed with patient their BMI (actual, verses recommended). We have also discussed lifestyle modifications: attempts to perform physical activity as chronic conditions allow, also to monitor dietary intake: increasing protein/fruits/veggies and lowering carb intake (unless contraindicated). Limit sodas, juices, and sugary drinks. * Melissa Moeller NP - 06/20/2025 7:05 AM EDTAssociated Problem(s): Elevated PSA, less than 10 ng/ml Screening PSA: 3.85 06/18/25, this seems to be a bit high for base line level Will order free PSA will do this in 1 month Dysuria may be related to prostate * Melissa Moeller NP - 06/20/2025 7:04 AM EDTAssociated Problem(s): Primary hypertension Please check blood pressure daily and record DASH diet Limit caffeine Take medication as directed Contact office if chest pain, pressure, dizziness, shortness of breath, swelling legs Recommend slow position changes Current med: losartan documented in this encounter Plan of Treatment Upcoming Encounters Date Type Department Care Team (Late st Contact Info) Description 09/24/2025 6:00 PM EDT Office Visit [facility] [address] [place] [address] Melissa Moeller NP [address] [place] [address] Scheduled Orders Name Type Priority Associated Diagnoses Orde r Schedule Urine culture (clean catch) Microbiology Routine Dysuria Expected: 06/20/2025 (Approximate), Expires: 06/20/2026 Iron + transferrin + TIBC Lab Routine Iron deficiency anemia, unspecified iron deficiency anemia type Expected: 06/20/2025 (Approximate), Expires: 06/20/2026 Ferritin Lab Routine Iron deficiency anemia, unspecified iron deficiency anemia type Expected: 06/20/2025 (Approximate), Expires: 06/20/2026 Vitamin B12 Lab Routine Iron deficiency anemia, unspecified iron deficiency anemia type Expected: 06/20/2025 (Approximate), Expires: 06/20/2026 documented as of this encounter Procedures Procedure Name Priority Date/Time Associated Diagnosis Comments POCT GLYCOSYLATED HEMOGLOBIN (HGB A1C) Routine 06/20/2025 9:29 AM EDT Abnormal glucose level documented in this encounter Results * (ABNORMAL) POCT glycosylated hemoglobin (Hb A1C) docked device (06/20/2025 9:29 AM EDT) Hemoglobin A1C 7.1 Blood Venous blood specimen / Unknown 06/20/2025 9:29 AM EDT us Melissa Moeller NP POINT OF CARE TEST ENTER/EDIT O RDERABLES Final Result documented in this encounter Visit Diagnoses Diagnosis Type 2 diabetes mellitus without complication, without long-term current use of insulin (HCC)- Primary Primary hypertension Unspecified essential hypertension Elevated PSA, less than 10 ng/ml Class 1 obesity due to excess calories with body mass index (BMI) of 33.0 to 33.9 in adult, unspecified whether serious comorbidity present Abnormal glucose level Dysuria Iron deficiency anemia, unspecified iron deficiency anemia type documented in this encounter Care Teams Web Mobile Designer Relationship Specialty Start Date End Date Leroy Ashby MD [address] [place] [address] PCP - General Family Medicine 02/22/24 Shaikh Hudson MD [address] [place] [address] PCP - Medical [employer] 07/30/15 11/28/99 Shayna Jones NP [address] [place] [address] Nurse Practitioner Family Medicine 06/28/24 documented as of this encounter
--- OUTSIDE RECORDS SUMMARY | 2025-06-20 10:47 | XMS_ITS | Encounter Summary ---
Author Organization [facility] Address [address] [place] [address] Care Team Providers Care Administrative Assistant Receptionist Name Role Phone Leroy Ashby MD Primary Care Provider [phone] Shaikh HU Hudson Unavailable [phone] Shayna Jones NP Unavailable [phone] Encounter Details Date Type Department Care Team (Late st Contact Info) Description 06/18/2025 Clinisync Result Encounter [facility] External Department Unsolicited Melissa Moeller NP [address] [place] [address] Social History Tobacco Use Types Packs/Day Years [...] week 11/27/2024 How often do you attend [facility] or yarsani services? More than 4 times per year 11/27/2024 Do you belong to any clubs o r organizations such as mormonism groups, unions, fraternal or athletic groups, or [...] Recorded Patient Health Questionnaire-2 Score 0 07/11/2024 [facility] - Occupational Stress [...] any time in the past 12 m ont, were you homeless or living in a mcc (including now)? No 11/27/2024 Sex and Gender Information Value Date Recorded Sex Assigned at Not on file Legal Sex Male 1:04 PM EST Gender Identity Not on file Sexual Orientation Not on file documented as of this encounter Plan of Treatment Upcoming Encounters Date Type Department Care Team (Late st Contact Info) Description 09/24/2025 6:00 PM EDT Office Visit [facility] [address] [place] [address] Melissa Moeller NP [address] [place] [address] documented as of this encounter Procedures Procedure Name Priority Date/Time Associated Diagnosis Comments [facility] VITAMIN D 25 [place] Routine 06/18/2025 7 :48 AM EDT [facility] PROSTATE SPECIFIC ANTIGEN SCRN Routine 06/18/2025 7:48 AM EDT [facility] CMP (CMP) (FOR REMOTE [facility] USE) Routine 06/18/2025 7:48 AM EDT ALL THYROID STIM HORMONE Routine 06/18/2025 7:48 AM EDT ALL LIPID PROFILE (FASTING) Routine 06/18/2025 7:48 AM EDT ALL CBC WITH AUTO DIFF Routine 06/18/2025 7:48 AM EDT documented in this encounter Results * [facility] VITAMIN D 25 [place] (06/18/2025 7:48 AM EDT) VITAMIN D 43.2 ng/mL TBH Comment: <20 ng/mL Vit D deficient 20-<30 ng/mL Vit D insufficient 30-100 ng/mL Vit D sufficient >100 ng/mL Potential Toxicity 06/18/2025 7:48 AM EDT 06/18/2025 7:50 AM EDT Narrative CLINISYNC - 06/18/2025 11:41 AM EDT Melissa Moeller NP CLINISYNC Final Result Performing Organization Address [facility] Co de Phone Number [facility] * [facility] PROSTATE SPECIFIC ANTIGEN SCRN (06/18/2025 7:48 AM EDT) PROSTATE SPECIFIC ANTIGEN SCRN 3.85 <=4.00 ng/mL TB 06/18/2025 7:48 AM EDT 06/18/2025 7:50 AM EDT Narrative CLINISYNC - 06/18/2025 9:08 AM EDT Melissa Moeller NP CLINISYNC Final Result Performing Organization Address [facility] de Phone Number [facility] * ALL THYROID STIM HORMONE (06/18/2025 7:48 AM EDT) THYROID STIMULATING HORMONE 2.901 0.358 - 3.740 uIU/mL TB 06/18/2025 7:48 AM EDT 06/18/2025 7:50 AM EDT Narrative CLINISYNC - 06/18/2025 8:45 AM EDT Melissa Moeller NP CLIN[facility] Final Result Performing Organization Address [facility] de Phone Number [facility] * (ABNORMAL) ALL LIPID PROFILE (FASTING) (06/18/2025 7:48 AM EDT) TRIGLYCERIDES 115 <=150 mg/dL TBH CHOLESTEROL 162 <=200 mg/dL TB HDL CHOLESTEROL 36(L) 40 - 60 mg/dL TB Comment: > or =60 mg/dl - LOW CARDIOVASCULAR RISK <40 mg/dl - HIGH CARDIOVASCULAR RISK LDL CHOLESTEROL CALCULATED 103.0 mg/dL TB Comment: <100 mg/dl OPTIMAL 100-129 mg/dl NEAR OR ABOVE OPTIMAL 130-159 mg/dl BORDERLINE HIGH 160-189 mg/dl HIGH >190 mg/dl VERY HIGH VLDL CHOLESTEROL 23.0 mg/dL TB CHOL HDL RATIO 4.5 TB Comment: 3.3 - 4.4 LOW RISK 4.4 - 7.1 AVERAGE RISK 7.1 - 11.0 MODERATE RISK >11.0 HIGH RISK 06/18/2025 7:48 AM EDT 06/18/2025 7:50 AM EDT Narrative CLINISYNC - 06/18/2025 8:45 AM EDT us Melissa Moeller NP CLIN[facility] Final Result [facility] * (ABNORMAL) [facility] CMP (CMP) (FOR REMOTE [facility] USE) (06/18/2025 7:48 AM EDT) SODIUM 143 136 - 145 mmol/L TBH POTASSIUM 4.5 3.5 - 5.1 mmol/L TBH CHLORIDE 108(H) 98 - 107 mmol/L TBH CARBON DIOXIDE 25.2 21.0 - 32.0 mmol/L TBH ANION GAP 14.3 TBH GLUCOSE 155(H) 74 - 106 mg/dL TB BLOOD UREA NITROGEN 15.0 7.0 - 18.0 mg/dL TBH CREATININE 0.83 0.70 - 1.30 mg/dL TBH TBH EGFR-AF BRUNEIAN >60 >=60 mL/min/1. 73m 2 TBH TBH EGFR-NON AF BRUNEIAN >60 >=60 mL/min/1. 73m 2 TBH BUN CREATININE RATIO 18.1 TBH CALCIUM 9.0 8.5 - 10.1 mg/dL TBH BILIRUBIN TOTAL 0.3 0.2 - 1.0 mg/dL TBH ASPARTATE AMINO TRANSFERASE 17 15 - 37 U/L TBH ALANINE AMINOTRANSFERASE 37 16 - 63 U/L TBH ALKALINE PHOSPHATASE 79 46 - 116 U/L TBH TOTAL PROTEIN 7.0 6.4 - 8.2 g/dL TBH ALBUMIN LEVEL 3.7 3.4 - 5.0 g/dL TBH GLOBULIN 3.3 g/dL TBH ALBUMIN GLOBULIN RATIO 1.1 TBH 06/18/2025 7:48 AM EDT 06/18/2025 7:50 AM EDT Narrative CLINISYNC - 06/18/2025 8:45 AM EDT us Melissa Moeller NP CLIN[facility]NC Final Result [facility] * (ABNORMAL) ALL CBC WITH AUTO DIFF (06/18/2025 7:48 AM EDT) TB WBC 7.7 4.0 - 11.0 10 3/uL TBH TBH RBC 4.11(L) 4.70 - 6.10 10 6/uL TBH TBH HGB 12.9(L) 14.0 - 18.0 g/dL TBH TBH HCT 37.8(L) 42.0 - 54.0 % TBH TBH MCV 92.0 80.0 - 94.0 fL TBH TBH MCH 31.4 25.9 - 34.0 pg TBH TBH MCHC 34.1 29.9 - 35.2 g/dL TBH TBH RDW 12.7 11.0 - 15.0 % TBH TBH PLT 357 150 - 450 10 3/uL TBH TBH MPV 8.6(L) 9.5 - 13.5 fL TBH NEUTROPHILS PERCENT AUTO 59.4 43.0 - 75.0 % TBH LYMPHOCYTES PERCENT AUTO 29.2 20.5 - 60.0 % TBH MONOCYTES PERCENT AUTO 7.7 1.7 - 12.0 % TBH TBH EO % 3.0 0.9 - 7.0 % TBH BASOPHILS PERCENT AUTO 0.4 0.2 - 2.0 % TBH IMMATURE GRANULOCYTES PCT AUTO 0.3 0.0 - 0.5 % TBH NEUTROPHILS ABSOLUTE AUTO 4.6 1.4 - 6.5 10 3/uL TBH LYMPHOCYTES ABSOLUTE AUTO 2.3 1.2 - 3.8 10 3/uL TBH MONOCYTES ABSOLUTE AUTO 0.6 0.3 - 0.8 10 3/uL TBH TBH EO # 0.2 0.0 - 0.7 10 3/uL TBH BASOPHILS ABSOLUTE AUTO 0.0 0.0 - 0.1 10 3/uL TBH IMMATURE GRANULOCYTES ABS AUTO 0.02 0.00 - 0.03 10 3/uL TBH 06/18/2025 7:48 AM EDT 06/18/2025 7:50 AM EDT Narrative CLINISYNC - 06/18/2025 7:57 AM EDT us Melissa Moeller NP CLINISYNC Final Result CLINIS[facility]NC TB documented in this encounter Visit Diagnoses Not on filedocumented in this encounter Care Teams Administrative Assistant Receptionist Relationship Specialty Start Date End Date Leroy Ashby MD [address] [place] [address] PCP - General Family Medicine 02/22/24 Shaikh Hudson MD [address] [place] [address] PCP - Medical [place] [employer] 07/30/15 11/28/99 Shayna Jones NP [address] [place] [address] Nurse Practitioner Family Medicine 06/28/24 documented as of this encounter
--- OUTSIDE RECORDS SUMMARY | 2025-06-20 10:47 | XMS_ITS | Encounter Summary ---
Author Organization [facility] Address [address] [place] [address] Care Team Providers Care Rehab Nursing Tech Name Role Phone Leroy Ashby MD Primary Care Provider [phone] Leroy Ashby MD Primary Care Provider [phone] Shaikh HU Hudson Unavailable [phone] Shayna Jones NP Unavailable [phone] Encounter Details Date Type Department Care Team (Late st Contact Info) Description 12/03/2023 Clinisync Result Encounter [facility] External Department Unsolicited Shaikh Hudson MD [address] [place] [address] Social History Tobacco Use Types Packs/Day Years Used Date Smoking Tobacco: Never Sex and Gender Information Value Date Recorded Sex Assigned at Not on file Legal Sex Male 1:04 PM EST Gender Identity Not on file Sexual Orientation Not on file documented as of this encounter Plan of Treatment Upcoming Encounters Date Type Department Care Team (Late st Contact Info) Description 09/24/2025 6:00 PM EDT Office Visit [facility] [address] [place] [address] Melissa Moeller NP [address] [place] [address] documented as of this encounter Procedures Procedure Name Priority Date/Time Associated Diagnosis Comments XR KNEE 3 VIEWS LEFT 12/03/2023 7:36 AM EST documented in this encounter Results * XR knee 3 views left (12/03/2023 7:36 AM EST) Anatomical Region Laterality Modality Lower Extremities, Knee Left Radiogra phic Imaging 12/03/2023 7:36 AM EST Narrative 12/03/2023 7:39 [place] [address] XRay Report Signed Patient: ISH RODRIGUEZ MR#: [id number] : 1970 Acct:[id number] Age/Sex: 52 / M ADM Date: 12/02/23 Loc: RAD Attending Dr: Shaikh Tristan Quinteros Ordering Physician: Shaikh Neli Hudson Date of Service: 12/02/23 Procedure(s): XR knee LT 3V Accession Number(s): [id number] cc: Shaikh Neli Hudson; Leroy Ashby M.D. [facility] [place] [id number] Patient Name: ISH RODRIGUEZ MRN: [id number] date: 1970 Sex: M Assigned Patient Location: [facility] Current Patient Location: Accession/Order Number: [id number] Exam Date: 12/02/2023 10:49 Report Date: 12/03/2023 07:36 At the request of: SHAIKH TRISTAN Procedure: XR knee LT 3V PROCEDURE: XR knee LT 3V COMPARISON: None. HISTORY: Chronic Left Knee Pain M25.562 FINDINGS: BONES:No acute fracture or dislocation. 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 No visible soft tissue swelling. EFFUSION:Small suprapatellar joint effusion OTHER: Negative. XR/XR knee LT 3V IMPRESSION: Mild osteoarthritis with joint effusion Electronically authenticated by: SOL MURCIA Date: 12/03/2023 07:36 Dictated By: Sol Murcia M.D. Signed By: 12/03/2339 DD/ 5 TD/TT: Helmet Hat Puncher: Procedure Note Radiology, Radiologist, - 12/03/2023 [place] [address] XRay Report Signed Patient: ISH RODRIGUEZ EMR#: [id number] : 1970Acct:[id number] Age/Sex: 52 / MADM Date: 12/02/23 Loc: RAD Attending Dr: Shaikh Tristan Quinteros Ordering Physician: Shaikh Neli Hudson Date of Service: 12/02/23 Procedure(s): XR knee LT 3V Accession Number(s): [id number] cc: Shaikh Neli Hudson; Leroy Ashby M.D. [facility] [place] [address] Patient Name: ISH RODRIGUEZ MRN: [id number] date: 1970 Sex: M Assigned Patient Location: [facility] Current Patient Location: Accession/Order Number: [id number] Exam Date: 12/02/2023 10:49 Report Date: 12/03/2023 07:36 At the request of: SHAIKH TRISTAN Procedure: XR knee LT 3V PROCEDURE: XR knee LT 3V COMPARISON: None. HISTORY: Chronic Left Knee Pain M25.562 FINDINGS: BONES:No acute fracture or dislocation. Tricompartmental osteoarthropathywith marginal osteophyte formation most significant in the medial compartment SOFT TISSUES:Negative. No visible soft tissue swelling. EFFUSION:Small suprapatellar joint effusion OTHER: Negative. XR/XR knee LT 3V IMPRESSION: Mild osteoarthritis with joint effusion Electronically authenticated by: SOL MURCIA Date: 12/03/2023 07:36 Dictated By: Sol Murcia M.D. Signed By:12/03/23 0739 DD/ 5 TD/TT: Helmet Hat Puncher: us Shaikh Tristan LUI IMG XR PROCEDURES Final Result documented in this encounter Visit Diagnoses Not on filedocumented in this encounter Care Teams Rehab Nursing Tech Relationship Specialty Start Date End Date Leroy Ashby MD PCP - General Family Medicine 11/19/23 02/21/24 Leroy Ashby MD [address] [place] [address] PCP - General Family Medicine 02/22/24 Shaikh Hudson MD [address] [place] [address] PCP - Medical [place] [employer] 07/30/15 11/28/99 Shayna Jones NP [address] [place] [address] Nurse Practitioner Family Medicine 06/28/24 documented as of this encounter
--- OUTSIDE RECORDS SUMMARY | 2025-06-20 10:47 | XMS_ITS | Encounter Summary ---
Author Organization [facility] Address [address] [place] [address] Care Team Providers Care Professional Organizer Name Role Phone Leroy Ashby MD Primary Care Provider [phone] Leroy Ashby MD Primary Care Provider [phone] Shaikh HU Hudson Unavailable [phone] Shayna Jones NP Unavailable Encounter Details Date Type Department Care Team (Late st Contact Info) Description 12/09/2023 Orders Only [facility] [address] [place] [address] Shaikh Hudson MD [address] [place] [address] Social History Tobacco Use Types Packs/Day Years Used Date Smoking Tobacco: Never Sex and Gender Information Value Date Recorded Sex Assigned at Not on file Legal Sex Male 1:04 PM EST Gender Identity Not on file Sexual Orientation Not on file documented as of this encounter Plan of Treatment Upcoming Encounters Date Type Department Care Team (Late Contact Info) Description 09/24/2025 6:00 PM EDT Office Visit [facility] [address] [place] [address] Melissa Moeller NP [address] [place] [address] documented as of this encounter Procedures Procedure Name Priority Date/Time Associated Diagnosis Comments XR KNEE 3 VIEWS LEFT Routine 12/02/2023 1:32 PM EST documented in this encounter Results * XR knee 3 views left (12/02/2023 1:32 PM EST) Anatomical Region Laterality Modality Lower Extremities, Knee Left Radiogra phic Imaging us Shaikh Tristan LUI IMG XR PROCEDURES Final Result documented in this encounter Visit Diagnoses Not on filedocumented in this encounter Care Teams Professional Organizer Relationship Specialty Start Date End Date Leroy Ashby MD PCP - General Family Medicine 11/19/23 02/21/24 Leroy Ashby MD [address] [place] [address] PCP - General Family Medicine 02/22/24 Shaikh Hudson MD [address] [place] [address] PCP - Medical [place] [employer] 07/30/15 11/28/99 Shayna Jones NP [address] [place] [address] Nurse Practitioner Family Medicine 06/28/24 documented as of this encounter
--- OUTSIDE RECORDS SUMMARY | 2025-06-20 10:47 | XMS_ITS | Encounter Summary ---
Author Organization [facility] Address [address] [place] [address] Care Team Providers Care Solar Sales Advisor Name Role Phone Leroy Ashby MD Primary Care Provider [phone] Shaikh HU Hudson Unavailable [phone] Shayna Jones NP Unavailable [phone] Encounter Details Date Type Department Care Team (Late Contact Info) Description 03/30/2024 Clinisync Result Encounter [facility] External Department Unsolicited Maren Candelario MD [address] [address] Social History Tobacco Use Types Packs/Day Years Used Date Smoking Tobacco: Never Passive Smoke Exposure: Never Smokeless Tobacco: Never Alcohol Use Standard Drinks/Week Comments Yes 2 (1 standard drink = 0.6 oz pur e alcohol) PHQ-2 Answer Date Recorded Patient Health Questionnaire-2 Score 0 01/17/2024 Sex and Gender Information Value Date Recorded Sex Assigned at Not on file Legal Sex Male 1:04 PM EST Gender Identity Not on file Sexual Orientation Not on file documented as of this encounter Plan of Treatment Upcoming Encounters Date Type Department Care Team ([facility] Contact Info) Description 09/24/2025 6:00 PM EDT Office Visit [facility] [address] [place] [address] Melissa Moeller NP [address] [place] [address] documented as of this encounter Procedures Procedure Name Priority Date/Time Associated Diagnosis Comments CT MAXILLOFACIAL W/O CONTRAST 03/30/2024 7:35 AM EDT documented in this encounter Results * CT MAXILLOFACIAL W/O CONTRAST (03/30/2024 7:35 AM EDT) Anatomical Region Laterality Modality Other 03/30/2024 7:35 AM EDT Narrative 04/03/2024 3:07 PM EDT Exam Date/Time: 03/30/2024 07:59 EDT Reason for [...] low as reasonably achievable. Ordering Provider: Maren Candelario FINAL REPORT Dictated: 04/03/2024 3:04 pm Kade Coreas DO Signed (Electronic Signature): 04/03/2024 3:04 pm Signed by: Kade Coreas DO Transcribed by: ELSY Technologist: JOSÉ LUIS Procedure Note Radiology, Radiologist, - 04/03/2024 Exam Date/Time: 03/30/2024 07:59 EDT Reason for Exam: J32.4 Report IMPRESSION: PARANASAL SINUS DISEASE DETAILED. Exam: CT Maxillofacial w/o Contrast History: Difficulty breathing Technique: Multiple contiguous axial images were obtained of themaxillofacial bones without contrast. Multiplanar reformats were obtained. Comparison: None available Findings: Maxillary Sinuses: Mild bilateral maxillary sinus mucosal thickening. Ethmoid sinuses: Near complete opacification of the majority of theethmoid air cells. Sphenoid sinuses: Mild mucosal thickening. There is sphenoidpneumatization that extends inferior and posterior to the sella, resulting in a thin posteriorbony margin of the clivus, consistent with sellar type pneumatization. Frontal sinuses: Near complete opacification of the right frontal sinus.The left frontal sinus is clear Right sphenoethmoidal recess: Opacified. Left sphenoethmoidal recess: Opacified. Right ostiomeatal complex and frontal recess: Opacified. Left ostiomeatal complex: Opacified. Left frontal recess: Partiallyopacified. Nasal septum: Rightward deviation. Other: Keros type 2 olfactory fossa. No Onodi or Eliceo cells. Mastoid air cells & middle ears: Clear. The middle ears areunremarkable. Soft tissues & Brain: No acute abnormality identified. Orbital contentsare within normal limits. Report All CT scans at this facility use dose modulation, iterativereconstruction, and/or weight based dosing when appropriate to reduce radiation dose to as low asreasonably achievable. Ordering Provider: Maren Candelario FINAL REPORT Dictated: 04/03/2024 3:04 pm Kade Coreas DO Signed (Electronic Signature): 04/03/2024 3:04 pm Signed by: Kade Coreas DO Transcribed by: ELSY Technologist: JOSÉ LUIS Maren Candelario MD [facility] Final Resul t documented in this encounter Visit Diagnoses Not on filedocumented in this encounter Care Teams Solar Sales Advisor Relationship Specialty Start Date End Date Leroy Ashby MD [address] [place] [address] PCP - General Family Medicine 02/22/24 Shaikh Hudson MD [address] [place] [address] PCP - Medical [place] [employer] 07/30/15 11/28/99 Shayna Jones NP [address] [place] [address] Nurse Practitioner Family Medicine 06/28/24 documented as of this encounter
--- OUTSIDE RECORDS SUMMARY | 2025-06-20 10:47 | XMS_ITS | Encounter Summary ---
Author Organization [facility] Address [address] [place] [address] Care Team Providers Care Records Management Assistant Name Role Phone Leroy Ashby MD Primary Care Provider Shaikh HU Hudson Unavailable [phone] Shayna Jones NP Unavailable [phone] Encounter Details Date Type Department Care Team (Late Contact Info) Description 02/28/2024 Orders Only [facility] [address] [place] [phone] Shaikh Hudson MD [address] [place] [address] Social History Tobacco Use Types Packs/Day Years [...] Upcoming Encounters Date Type Department Care Team ([facility] Contact Info) Description 09/24/2025 6:00 PM EDT Office Visit [facility] [address] [place] [phone] Melissa Moeller NP [address] [place] [address] documented as of this encounter Visit Diagnoses Not on filedocumented in this encounter Care Teams Records Management Assistant Relationship Specialty Start Date End Date Leroy Ashby MD [address] [place] [address] PCP - General Family Medicine 02/22/24 Shaikh Hudson MD [address] [place] [address] PCP - Medical [place] [employer] 07/30/15 11/28/99 Shayna Jones NP [address] [place] [address] Nurse Practitioner Family Medicine 06/28/24 documented as of this encounter
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
--- OUTSIDE RECORDS SUMMARY | 2025-06-20 10:47 | XMS_ITS | Clinical Summary ---
Author Organization [facility] Address [id number] [address] [place] [address] Care Team Providers Care Support Merchandiser Name Role Phone Leroy Ashby MD Primary Care Provider [phone] Allergies No known active allergies Medications cholecalciferol, vitamin D3, (VITAMIN D3 ORAL) Take by mouth daily as needed. Active Active Problems No known active problems Family History Medical History Relation Name Comments Diabetes Father Heart failure Father Hypertension Father No Known Problems Mother Relation Name Status Comments Father Mother Alive Social History Tobacco Use Types Packs/Day Years Used Date Smoking Tobacco: Some Days Cigarettes Smokeless Tobacco: Current Tobacco Cessation:Ready to Q uit: Not Asked; Counseling Given: Not Answered Comments:Socially Alcohol Use Standard Drinks/Week Comments Yes 3 (1 standard drink = 0.6 oz pur e alcohol) Childcare Answer Date Recorded Childcare Unknown 05/09/2019 Employment Answer Date Recorded Employment Unknown 05/09/2019 Hunger Screening Answer Date Recorded Within the past 12 months we worried whether our food would run out before we got money to buy more. Never True 01/21/2023 Within the past 12 months th e food we bought just didn't last and we didn't have money to get more. Never True 01/21/2023 Sex and Gender Information Value Date Recorded Sex Assigned at Not on file Legal Sex Male 9:07 PM EDT Gender Identity Not on file Sexual Orientation Not on file Last Filed Vital Signs Vital Sign Reading Time Taken Comments Blood Pressure 124/79 03/11/2023 11:07 AM EDT Pulse 73 03/11/2023 11:07 AM EDT Temperature 36.9 C (98.4 F) 03/11/2023 9:10 AM EDT Respiratory Rate 16 03/11/2023 10:52 AM EDT Oxygen Saturation 96% 03/11/2023 11:07 AM EDT Inhaled Oxygen Concentration - - Weight 102.1 kg (225 lb) 03/11/2023 9:10 AM EDT Height 177.8 cm (5' 10 ) 03/11/2023 9:10 AM EDT Body Mass Index 32.28 03/11/2023 9:10 AM EDT Plan of Treatment Health Maintenance Due Date Last Done Comments Depression Screening 1982 Tobacco Screening 1982 DTaP,Tdap and Td Vaccines (1 - Tdap) 1989 Zoster (Shingles) Vaccine (1 of 2) 2020 Adult BMI Screening 03/11/2024 03/11/2023 COVID-19 Vaccine (4 - 2023-2 5 season) 2024 10/27/2021, 02/01/2021, 01/11/2021 Influenza Vaccine 07/30/2025 Colonoscopy 03/11/2033 03/11/2023, 03/11/2023 Medical Devices Not on file Procedures Procedure Name Priority Date/Time Associated Diagnosis Comments PROVATION COLONOSCOPY Routine 03/11/2023 9:22 AM EDT from Last 3 Months or Most Recently Relevant to Health Maintenance Results * Colonoscopy Report (03/11/2023 9:22 AM EDT) Narrative SYSTEMGENERATED, DOCUMENTATION - 03/11/2023 9:22 AM EDT This order has been auto-finalized for image and report archival in PACs. *For full report details, please reach out to your physician. This image is visible to you in MyChart.* us Dm Paulino DO IMG OR IMG ORDERABLES Final Result from Last 3 Months or Most Recently Relevant to Health Maintenance Insurance [employer] Care Teams Support Merchandiser Relationship Specialty Start Date End Date Leroy Ashby MD PCP - General Family Medicine 03/11/23
--- OUTSIDE RECORDS SUMMARY | 2025-06-20 10:47 | XMS_ITS | Encounter Summary ---
Author Organization [facility] Address [address] [place] [address] Care Team Providers Care Cigarette Packing Machine Operator Name Role Phone Leroy Ashby MD Primary Care Provider [phone] Shaikh HU Hudson Unavailable [phone] Shayna Jones NP Unavailable [phone] Encounter Details Date Type Department Care Team (Late st Contact Info) Description 06/18/2025 Orders Only [facility] [address] [place] [address] Melissa Moeller NP [address] [place] [address] Elevated random blood glucose level (Primary Dx) Social History Tobacco Use Types Packs/Day Years [...] often do you attend chur ch or mormon services? More than 4 times per year 11/27/2024 Do you belong to any clubs o r organizations such as zoroastrianism groups, unions, fraternal or athletic groups, or [...] Recorded Patient Health Questionnaire-2 Score 0 07/11/2024 [facility] Occupat ional Health - Occupational Stress [...] any time in the past 12 m [facility], were you homeless or living in a chcf (including now)? No 11/27/2024 Sex and Gender Information Value Date Recorded Sex Assigned at Not on file Legal Sex Male 1:04 PM EST Gender Identity Not on file Sexual Orientation Not on file documented as of this encounter Plan of Treatment Upcoming Encounters Date Type Department Care Team (Late st Contact Info) Description 09/24/2025 6:00 PM EDT Office Visit [facility] [address] [place] [address] Melissa Moeller NP [address] [place] [address] Scheduled Orders Name Type Priority Associated Diagnoses Orde r Schedule Hemoglobin A1c Lab Routine Elevated random blood glucose level Expected: 06/18/2025 (Approximate), Expires: 06/18/2026 documented as of this encounter Visit Diagnoses Diagnosis Elevated random blood glucose level- Primary documented in this encounter Care Teams Cigarette Packing Machine Operator Relationship Specialty Start Date End Date Leroy Ashby MD [address] [place] [address] PCP - General Family Medicine 02/22/24 Shaikh Hudson MD [address] [place] [address] PCP - Medical [place] [employer] 07/30/15 11/28/99 Shayna Jones NP [address] [place] [phone] Nurse Practitioner Family Medicine 06/28/24 documented as of this encounter
--- OUTSIDE RECORDS SUMMARY | 2025-06-20 10:47 | XMS_ITS | Encounter Summary ---
Author Organization [facility] Address [address] [place] [address] Care Team Providers Care Tier In Name Role Phone Leroy Ashby MD Primary Care Provider [phone] Shaikh HU Hudson Unavailable [phone] Shayna Jones NP Unavailable [phone] Encounter Details Date Type Department Care Team (Late Contact Info) Description 06/07/2024 Clinisync Result Encounter [facility] External Department Unsolicited Shaikh Hudson MD [address] [place] [address] Social History Tobacco Use Types Packs/Day Years Used Date Smoking Tobacco: Never Passive Smoke Exposure: Never Smokeless Tobacco: Never Alcohol Use Standard Drinks/Week Comments Yes 6 (1 standard drink = 0.6 oz pur e alcohol) PHQ-2 Answer Date Recorded Patient Health Questionnaire-2 Score 0 06/05/2024 Sex and Gender Information Value Date Recorded Sex Assigned at Not on file Legal Sex Male 1:04 PM EST Gender Identity Not on file Sexual Orientation Not on file documented as of this encounter Plan of Treatment Upcoming Encounters Date Type Department Care Team ([facility] Contact Info) Description 09/24/2025 6:00 PM EDT Office Visit [facility] [address] [place] [address] Melissa Moeller NP [address] [place] [address] documented as of this encounter Procedures Procedure Name Priority Date/Time Associated Diagnosis Comments XR KNEE 3 VIEWS RIGHT 06/07/2024 12:00 PM EDT documented in this encounter Results * XR knee 3 views right (06/07/2024 12:00 PM EDT) Anatomical Region Laterality Modality Lower Extremities, Knee Right Radiogra [facility] 06/07/2024 12:0 0 PM EDT Narrative 06/07/2024 12:03 PM EDT [facility] [place] [id number] XRay Report Signed Patient: ISH RODRIGUEZ MR#: [id number] : 1970 Acct:[id number] Age/Sex: 53 / M ADM Date: 06/07/24 Loc: RAD Attending Dr: Shaikh Tristan Quinteros Ordering Physician: Shaikh Neli Hudson Date of Service: 06/07/24 Procedure(s): XR knee RT 3V Accession Number(s): [id number] cc: Shaikh Neli Hudson [address] [address] Patient Name: ISH RODRIGUEZ MRN: [id number] date: 1970 Sex: M Assigned Patient Location: [facility] Current Patient Location: [facility] Accession/Order Number: [id number] Exam Date: 06/07/2024 11:02 Report Date: 06/07/2024 12:00 At the request of: SHAIKH TRISTAN Procedure: XR knee RT 3V PROCEDURE: XR knee RT 3V COMPARISON: None. HISTORY: Acute Pain Of Right Knee M25.561 FINDINGS: BONES:No fracture, acute abnormality, or significant arthropathy. SOFT TISSUES:Negative. No visible soft tissue swelling. EFFUSION:Moderate joint effusion OTHER: Negative. XR/XR knee RT 3V IMPRESSION: Moderate suprapatellar joint effusion Electronically authenticated by: SOL MURCIA Date: 06/07/2024 12:00 Dictated By: Sol Murcia M.D. Signed By: 06/07/241202 DD/ 1200 TD/TT: Principal Security Architect: Procedure Note Radiology, Radiologist, - 06/07/2024 [place] [address] XRay Report Signed Patient: ISH RODRIGUEZ EMR#: [id number] : 1970Acct:[id number] Age/Sex: 53 / MADM Date: 06/07/24 Loc: RAD Attending Dr: Shaikh Tristan Quinteros Ordering Physician: Shaikh Neli Hudson Date of Service: 06/07/24 Procedure(s): XR knee RT 3V Accession Number(s): [id number] cc: Shaikh Neli Hudson [facility] [place] [address] Patient Name: ISH RODRIGUEZ MRN: [id number] date: 1970 Sex: M Assigned Patient Location: [facility] Current Patient Location: [facility] Accession/Order Number: [id number] Exam Date: 06/07/2024 11:02 Report Date: 06/07/2024 12:00 At the request of: SHAIKH TRISTAN Procedure: XR knee RT 3V PROCEDURE: XR knee RT 3V COMPARISON: None. HISTORY: Acute Pain Of Right Knee M25.561 FINDINGS: BONES:No fracture, acute abnormality, or significant arthropathy. SOFT TISSUES:Negative. No visible soft tissue swelling. EFFUSION:Moderate joint effusion OTHER: Negative. XR/XR knee RT 3V IMPRESSION: Moderate suprapatellar joint effusion Electronically authenticated by: SOL MURCIA Date: 06/07/2024 12:00 Dictated By: Sol Murcia M.D. Signed By:06/07/241202 DD/ 1200 TD/TT: Principal Security Architect: us Shaikh Tristan LUI IMG XR PROCEDURES Final Result documented in this encounter Visit Diagnoses Not on filedocumented in this encounter Care Teams Tier In Relationship Specialty Start Date End Date Leroy Ashby MD [address] [place] [address] PCP - General Family Medicine 02/22/24 Shaikh Hudson MD [address] [place] [address] PCP - Medical [employer] 07/30/15 11/28/99 Shayna Jones NP [address] [place] [address] Nurse Practitioner Family Medicine 06/28/24 documented as of this encounter
--- OUTSIDE RECORDS SUMMARY | 2025-06-20 10:47 | XMS_ITS | Encounter Summary ---
Author Organization [facility] Address [address] [place] [address] Care Team Providers Care Spinner Open End Name Role Phone Leroy Ashby MD Primary Care Provider [phone] Shaikh HU Hudson Unavailable [phone] Shayna Jones NP Unavailable [phone] Encounter Details Date Type Department Care Team (Late Contact Info) Description 07/05/2024 [facility] [address] [place] [address] Shaikh Hudson MD [address] [place] [address] Social History Tobacco Use Types Packs/Day Years [...] Upcoming Encounters Date Type Department Care Team ([facility] Contact Info) Description 09/24/2025 6:00 PM EDT Office Visit [facility] [address] [place] [address] Melissa Moeller NP [address] [place] [address] documented as of this encounter Procedures Procedure Name Priority Date/Time Associated Diagnosis Comments MRI KNEE RT WO CON Routine 07/05/2024 6:00 PM EDT documented in this encounter Results * MRI KNEE RT WO CON (07/05/2024 6:00 PM EDT) Anatomical Region Laterality Modality Radiographic Cecile ging us Shaikh Tristan LUI IMG XR PROCEDURES Final Result documented in this encounter Visit Diagnoses Not on filedocumented in this encounter Care Teams Spinner Open End Relationship Specialty Start Date End Date Leroy Ashby MD [address] [place] [address] PCP - General Family Medicine 02/22/24 Shaikh Hudson MD [address] [place] [address] PCP - Medical [place] [employer] 07/30/15 11/28/99 Shayna Jones NP [address] [place] [address] Nurse Practitioner Family Medicine 06/28/24 documented as of this encounter
--- OUTSIDE RECORDS SUMMARY | 2025-06-20 10:47 | XMS_ITS | Encounter Summary ---
Author Organization [facility] Address [address] [place] [address] Care Team Providers Care Holiday Detector Operator Name Role Phone Leroy Ashby MD Primary Care Provider [phone] Shaikh HU Hudson Unavailable [phone] Shayna Jones NP Unavailable [phone] Encounter Details Date Type Department Care Team (Late st Contact Info) Description 06/20/2025 Bamboo flowsheet [facility] [address] [place] [address] Melissa Moeller NP [address] [place] [place] [address] Social History Tobacco Use Types Packs/Day Years [...] often do you attend chur ch or baptism services? More than 4 times per year 11/27/2024 Do you belong to any clubs o r organizations such as sabianist groups, unions, fraternal or athletic groups, or [...] Recorded Patient Health Questionnaire-2 Score 0 07/11/2024 [facility] of Occupat ional [facility] - Occupational Stress Questionnaire Answer Date Recorded [...] any time in the past 12 m [facility], were you homeless or living in a half-way (including now)? No 11/27/2024 Sex and Gender [...] Office Visit [facility] [address] [place] [address] Melissa Moeller NP [address] [place] [address] documented as of this encounter Visit Diagnoses Not on filedocumented in this encounter Care Teams Holiday Detector Operator Relationship Specialty Start Date End Date Leroy Ashby MD [address] [place] [address] PCP - General Family Medicine 02/22/24 Shaikh Hudson MD [address] [place] [address] PCP - Medical [place] [employer] 07/30/15 11/28/99 Shayna Jones NP [address] [place] [address] Nurse Practitioner Family Medicine 06/28/24 documented as of this encounter
--- OUTSIDE RECORDS SUMMARY | 2025-06-20 10:47 | XMS_ITS | Encounter Summary ---
Author Organization [facility] Address [address] [place] [address] Care Team Providers Care Drill Operator Pneumatic Name Role Phone Leroy Ashby MD Primary Care Provider [phone] Shaikh HU Hudson Unavailable [phone] Shayna Jones NP Unavailable [phone] Encounter Details Date Type Department Care Team (Late st Contact Info) Description 06/18/2025 Orders Only [facility] [address] [place] [address] Melissa Moeller NP [address] [place] [address] Elevated PSA, less than 10 ng/ml (Primary Dx) Social History Tobacco Use Types [...] often do you attend chur ch or tenriism services? More than 4 times per year [...] Recorded Patient Health Questionnaire-2 Score 0 07/11/2024 [facility] [place] of Occupat ional Health - Occupational Stress [...] any time in the past 12 m [facility], were you homeless or living in a custodial (including now)? No 11/27/2024 Sex and Gender Information Value Date Recorded Sex Assigned at Not on file Legal Sex Male 1:04 PM EST Gender Identity Not on file Sexual Orientation Not on file documented as of this encounter Plan of Treatment Upcoming Encounters Date Type Department Care Team (Late st Contact Info) Description 09/24/2025 6:00 PM EDT Office Visit [facility] [address] [place] [address] Melissa Moeller ASSISTANT SCIENTIST [address] [place] [address] Scheduled Orders Name Type Priority Associated Diagnoses Orde r Schedule PSA, total and free Lab Routine Elevated PSA, less than 10 ng/ml Expected: 06/18/2025 (Approximate), Expires: 06/18/2026 documented as of this encounter Visit Diagnoses Diagnosis Elevated PSA, less than 10 ng/ml- Primary documented in this encounter Care Teams Drill Operator Pneumatic Relationship Specialty Start Date End Date Leroy Ashby MD [address] [place] [address] PCP - General Family Medicine 02/22/24 Shaikh Hudson MD [address] [place] [address] PCP - Medical [place] [employer] 07/30/15 11/28/99 Shayna Jones NP [address] [place] [address] Nurse Practitioner Family Medicine 06/28/24 documented as of this encounter
--- OUTSIDE RECORDS SUMMARY | 2025-06-20 10:47 | XMS_ITS | Encounter Summary ---
Author Organization [facility] Address [address] [place] [address] Care Team Providers Care Pet Care Attendant Name Role Phone Leroy Ashby MD Primary Care Provider [phone] Shaikh HU Hudson Unavailable [phone] Shayna Jones NP Unavailable [phone] Encounter Details Date Type Department Care Team (Late Contact Info) Description 06/29/2024 [facility] [address] [place] [address] Leroy Ashby MD [address] [place] [address] Social History Tobacco Use Types Packs/Day Years [...] Upcoming Encounters Date Type Department Care Team ([facility] Contact Info) Description 09/24/2025 6:00 PM EDT [facility] [address] [place] [address] Melissa Moeller NP [address] [place] [address] documented as of this encounter Visit Diagnoses Not on filedocumented in this encounter Care Teams Pet Care Attendant Relationship Specialty Start Date End Date Leroy Ashby MD [address] [place] [address] PCP - General Family Medicine 02/22/24 Shaikh Hudson MD [address] [place] [address] PCP - Medical [place] [employer] 07/30/15 11/28/99 Shayna Jones NP [address] [place] [address] Nurse Practitioner Family Medicine 06/28/24 documented as of this encounter
--- OUTSIDE RECORDS SUMMARY | 2025-06-20 10:47 | XMS_ITS | Encounter Summary ---
Author Organization [facility] Address [address] [place] [address] Care Team Providers Care Computer Animator Name Role Phone Leroy Ashby MD Primary Care Provider Shaikh HU Hudson Unavailable [phone] Shayna Jones NP Unavailable [phone] Encounter Details Date Type Department Care Team (Late Contact Info) Description 06/28/2024 External Result Encounter [facility] [address] [place] [address] Shaikh Hudson MD [address] [place] [address] Social History Tobacco Use Types Packs/Day Years [...] Upcoming Encounters Date Type Department Care Team ([facility] Contact Info) Description 09/24/2025 6:00 PM EDT Office Visit [facility] [address] [place] [address] Melissa Moeller, THOM [address] [place] [address] documented as of this encounter Procedures Procedure Name Priority Date/Time Associated Diagnosis Comments MR KNEE RIGHT WO IV CONTRAST 06/28/2024 2:21 PM EDT documented in this encounter Results * MR knee right wo IV contrast (06/28/2024 2:21 PM EDT) Anatomical Region Laterality Modality Lower Extremities, Knee Right Magnetic Resonance 06/28/2024 2:21 PM EDT Narrative 06/28/2024 2:20 PM EDT THIS EXAM WAS PERFORMED AT [facility] RIGHT KNEE CLINICAL INFORMATION: Medial pain. Pain [...] Tanya Snell MD on 06/28/2024 2:20 PM The copy-to physician of this order is JUSTINE Dunbar JR Procedure Note Radiology, Radiologist, - 06/28/2024 THIS EXAM WAS PERFORMED AT [facility] MRI RIGHT KNEE CLINICAL INFORMATION: Medial pain. Pain is increasing. Pain afterjumping injury COMPARISON: ?None. PROCEDURE: ?Multisequence, multiplanar MR images of the knee wereobtained. FINDINGS: MENISCI Medial meniscus: Torn. Longitudinally oriented tear is appreciated thisaffects the posterior horn and the posterior root attachment. The tearextends to the tibial surface Lateral meniscus: Intact. LIGAMENTS Cruciate ligaments: Intact. Medial collateral ligament: Superficial and deep components intact. Noperiligamentous edema. Lateral collateral ligament: Intact. EXTENSOR MECHANISM Extensor mechanism: The distal quadriceps and patellar tendons are intact.The patella is normally positioned within the femoral groove. There is noretinacular disruption. FLUID Fluid: Moderate size joint effusion. Suprapatellar and medial patellarplica are observed OSSEOUS and ARTICULAR STRUCTURES Bones: Subchondral fracture affecting the central weightbearing portion ofthe medial femoral condyle is appreciated. Extensive edema is noted. Noin situ fragment is noted. Patellofemoral compartment: Mild chondral wear Medial compartment: Moderate chondral wear Lateral compartment: Mild chondral wear IMPRESSION: Nondisplaced subchondral fracture of the central weightbearing portion ofthe medial femoral condyle is noted. Extensive edema is appreciated. Medial meniscus is torn. Complex joint effusion with plica. Follow-upwith orthopedics is suggested. Finalized by Tanya Snell MD on 06/28/2024 2:20 PM The copy-to physician of this order is JUSTINE Dunbar JR Shaikh Tristan LUI IM MRI PROCEDURES Final Result documented in this encounter Visit Diagnoses Not on filedocumented in this encounter Care Teams Computer Animator Relationship Specialty Start Date End Date Leroy Ashby MD [address] [place] [address] PCP - General Family Medicine 02/22/24 Shaikh Hudson MD [address] [place] [address] PCP - Medical [place] [employer] 07/30/15 11/28/99 Shayna Jones NP [address] [place] [address] Nurse Practitioner Family Medicine 06/28/24 documented as of this encounter
--- OUTSIDE RECORDS SUMMARY | 2025-06-20 11:07 | XMS_ITS | CCD ---
Author Organization [facility] CliniSytn Care Team Providers Care Citizen Participation Specialist Name Role Phone DR LEROY BARBA Attending Unavailable FREDA, DR LEROY Krishnan Consulting Unavailable FREDA, DR LEROY Krishnan Primary Care Unavailable FREDA, DR LEROY Krishnan Admitting Unavailable Freda LUI, Leroy Primary Care Provider [phone] TRISTAN, Primary Care Physician Timmis, Franklyn H Referring Unavailable Timmis, Franklyn H Attending Unavailable Timmis, Franklyn H Admitting Unavailable FAWWAD, DUBOSE Referring Unavailable LEROY BARBA Primary Care Unavailable Leroy Barba MD Primary Care Provider [phone] Tristan LUI, Unavailable Robert SUPPLY CHAIN LOGISTICS MANAGER, Loretta Unavailable [phone] KORI RUBIO Attending Unavailable FAWWAD, DUBOSE Referring Unavailable MORATAYACELESTINA Attending Unavailable FAWWAD, DUBOSE Referring Unavailable MORATAYACELESTINA Attending Unavailable FAWWAD, DUBOSE Referring Unavailable FAWWAD, DUBOSE Attending Unavailable CELESTINA MORATAYA Attending Unavailable FAWWAD, DUBOSE Referring Unavailable CELESTINA MORATAYA Attending Unavailable FAWWAD, DUBOSE Referring Unavailable KORI RUBIO Attending Unavailable FAWWAD, DUBOSE Referring Unavailable KORI RUBIO Attending Unavailable FAWWAD, DUBOSE Referring Unavailable TIMMIS, FRANKLYN H Attending Unavailable FAWWAD, DUBOSE Referring Unavailable TIMMIS, FRANKLYN H Attending Unavailable MARLENY QUEZADA Attending Unavailable FAWWAD, DUBOSE Attending Unavailable FAWWAD, DUBOSE Attending Unavailable TIMMIS, FRANKLYN H Attending Unavailable JR. WHYTE GEORGE C Attending LORETTA Rebolledo Attending ELLA Prakash Attending Unavailable MERCED MCCALL Attending Unavailable MERCED MCCALL Attending FRANKLYN Schuster Attending LORETTA Ortiz Referring LORETTA Pham Attending Loretta Pham NP Unavailable Medications Current Medications Medication Drug Class(es) Dates Sig (Normalized) Sig (Original) acetaminophen 325 mg / HYDROcodone bitartrate 5 mg oral tablet (3 sources) Opioid Agonist Start: 07-26-2024 End: 07-29-2024 take 1 tablet by mouth every six hours for pain HYDROcodone-acetami nophen ([place]) 5-325 MG tablet Indications: Post-operative pain Take [...] dose nasal spray (20 sources) Corticosteroid Start: 05-19-2024 End: 04-24-2025 take 2 spray(s) nasal route once daily fluticasone (Flonase) 50 MCG/ACT nasal spray Indications: Chronic pansinusitis USE 2 SPRAYS IN EACH NOSTRIL DAILY 48 g 3 04/24/2025 Active take 1 spray(s) nasa l route in the morning fluticasone (Flonase) 50 MCG/ACT nasal spray Administer 1 spray into each nostril in the morning. Shake gently. Before first use, prime pump. After use, clean tip and replace cap.. 0 Active losartan potassium 100 mg oral tablet (20 sources) Angiotensin 2 Receptor Dale Start: 05-01-2025 End: 07-30-2025 take 1 tablet by mouth once daily losartan (Cozaar) 100 MG tablet Indications: Primary hypertension Take 1 tablet (100 mg) by mouth Daily 90 tablet 05/01/2025 07/30/2025 Active Start: 05-22-2024 End: 04-09-2025 take 1 tablet by mouth once daily losartan (Cozaar) 100 MG tablet Indications: Primary hypertension (CMS/HCC) Take 1 tablet (100 mg) by mouth Daily 90 tablet 1 10/11/2024 Active montelukast 10 mg oral tablet (20 sources) Leukotriene Receptor Antagonist Start: 05-19-2024 End: 05-19-2025 montelukast (Singulair) 10 MG tablet Indications: Nasal polyp TAKE 1 TABLET AT BEDTIME 90 tablet 3 04/24/2025 Active nystatin 100 unt/mg topical powder (4 sources) Polyene Antifungal Start: 11-24-2023 End: 02-22-2024 nystatin (Mycostatin) 143900 UNIT/GM powder Indications: Rash Apply topically 3 (three) times a day 60 g 2 11/24/2023 02/22/2024 Active predniSONE 10 mg oral tablet (16 sources) Start: 07-10-2024 End: 08-15-2024 predniSONE (Deltasone) 10 MG tablet 07/10/2024 08/15/2024 Discontinued (Therapy completed) sulfamethoxazole 800 mg / trimethoprim 160 mg oral tablet (2 sources) Dihydrofolate Reductase Inhibitor Antibacterial, Sulfonamide Antimicrobial Start: 06-20-2025 End: 06-30-2025 take 1 tablet by mouth once sulfamethoxazole- trimethoprim (Bactrim DS) 800-160 MG per tablet Indications: Dysuria Take 1 tablet by mouth every 12 (twelve) hours for 10 days 20 tablet 06/20/2025 06/30/2025 Active Problems Active Problems Problem Classification Problem Date Documented Date Episodic/Chronic Deficiency and other anemia (4 sources) Iron deficiency anemia; Translations: [Iron deficiency anemia, unspecified] Onset: 06-20-2025 06-20-2025 Episodic Diabetes mellitus without complication (4 sources) Type 2 diabetes mellitus; Translations: [Type 2 diabetes mellitus without complications] Onset: 06-20-2025 06-20-2025 Chronic Diabetes mellitus without complication (19 sources) High glucose level in blood; Translations: [Hyperglycemia, unspecified] Onset: 12-04-2024 Resolved: 06-20-2025 12-04-2024 Episodic Essential hypertension (20 sources) Essential hypertension; Translations: [Essential (primary) hypertension] Onset: 11-23-2023 10-09-2024 Chronic Genitourinary symptoms and ill-defined conditions (4 sources) Dysuria; Translations: [Dysuria] Onset: 06-20-2025 06-20-2025 Episodic Nutritional deficiencies (20 sources) Vitamin D deficiency, [...] Episodic Other nutritional; endocrine; and metabolic disorders (10 sources) Obesity caused by energy imbalance; Translations: [Class 1 obesity due to excess calories with body mass index (BMI) of 33.0 to 33.9 in adult, unspecified whether serious comorbidity present] Onset: 05-01-2025 05-01-2025 Chronic Other screening for suspected conditions (not mental disorders or infectious disease) (20 sources) Encounter for screening for malignant neoplasm [...] Problem Classification Problem Date Documented Date Episodic/Chronic Fracture of lower limb (20 sources) Closed [...] [Pain in joint, lower leg] Onset: 11-23-2023 Resolved: 06-18-2025 11-23-2023 Episodic Other skin disorders (20 sources) Eruption; Translations: [Rash and other nonspecific skin eruption] Onset: 11-23-2023 11-23-2023 Episodic Other upper respiratory disease (20 sources) Acquired deviated nasal septum; Translations: [Deviated nasal septum] Onset: 11-24-2023 Resolved: 06-18-2025 11-24-2023 Episodic Other upper respiratory disease (20 sources) Polyp of nasal cavity and/or nasal sinus; Translations: [Nasal polyp, unspecified] Onset: 02-28-2024 02-28-2024 Episodic Results Test Name Value Interpretation Reference Range Facility HbA1c (Bld) [Mass fraction]o n 06-20-2025 Interpretation and review of laboratory results Abnormal [facility] - Hematology and Cell countson 06-20-2025 HbA1c (Bld) [Mass fraction] 7.1 % [facility] ALL CBC WITH AUTO DIFFon BASOPHILS ABSOLUTE AUTO 0 [facility] Basophils/100 WBC (Bld) 0.4 % 0.2 - 2.0 % [facility] Eosinophils/100 WBC (Bld) 3 % 0.9 - 7.0 % [facility] Erythrocyte distribution width (RBC) [Ratio] 12.7 % 11.0 - 15.0 % [facility] Hematocrit (Bld) [Volume fraction] 37.8 % Low 42.0 - 54.0 % [facility] Hemoglobin (Bld) [Mass/Vol] 12.9 g/dL Low 14.0 - 18.0 g/dL [facility] IMMATURE GRANULOCYTES ABS AUTO 0.02 [facility] Immature granulocytes/100 WBC (Bld) 0.3 % 0.0 - 0.5 % [facility] Interpretation and review of laboratory results Abnormal [facility] LYMPHOCYTES ABSOLUTE AUTO 2.3 [facility] Lymphocytes/100 WBC (Bld) 29.2 % 20.5 - 60.0 % [facility] MCH (RBC) [Entitic mass] 31.4 pg 25.9 - 34.0 pg [facility] MCHC (RBC) [Mass/Vol] 34.1 g/dL 29.9 - 35.2 g/dL [facility] MCV (RBC) [Entitic vol] 92 fL 80.0 - 94.0 fL [facility] MONOCYTES ABSOLUTE AUTO 0.6 [facility] Monocytes/100 WBC (Bld) 7.7 % 1.7 - 12.0 % [facility] NEUTROPHILS ABSOLUTE AUTO 4.6 [facility] Neutrophils/100 WBC (Bld) 59.4 % 43.0 - 75.0 % [facility] Platelet mean volume (Bld) [Entitic vol] 8.6 fL Low 9.5 - 13.5 fL [facility] EO # 0.2 [facility] PLT 357 [facility] RBC 4.11 Low [facility] WBC 7.7 [facility] MR KNEE RT WO CONTon 024 MR [...] Snell MD on 06/28/2024 2:20 PM Normal [facility] CT Maxillofacial w/o Contras ton 04-03-2024 [...] as low as reasonably achievable. Ordering Provider: Franklyn Bourne FINAL REPORT Dictated: 04/03/2024 3:04 pm Kade Coreas DO Signed (Electronic Signature): 04/03/2024 3:04 pm Signed by: Kade Coreas DO Transcribed by: ELSY Technologist: [facility] Consent for Treatmenton Consent for Treatment [id number] #1.00TIFF [facility] Physician Orderon 03-28-2024 Physician Order [id number] #1.00TIFF [facility] VIT D 25-OH LABCORPon 2021 Vitamin D, 25-Hydroxy 35.2 ng/mL Normal 30.0-100.0 [facility] Comment on above: Result Comment: Barbara min D deficiency has been defined by the [place] of [employer] and an Endocrine Society practice guideline as a level of serum 25-OH vitamin D less than 20 ng/mL (1,2). The Endocrine Society went on to further define vitamin D insufficiency as a level between 21 and 29 ng/mL (2). 1. IOM ([place] of Medicine). 2010. Dietary reference intakes for calcium and D. [place]: The National Academies Press. 2. Gayle MF, Didier [place], Rhys-Tariq BERGERON, et al. Evaluation, treatment, and prevention of vitamin D deficiency: an Endocrine Society clinical practice guideline. JCEM. 2010; 96(7):1911-30. Performed By: #### V ITADLC #### [facility] [address] [place] [address] Dr. Gasper Vega CBC AUTO DIFFon 07-27-2022 BASO # 0.0 103/ul Normal 0.0-0.1 [facility] Comment on above: Performed By: #### C BC #### [facility] [address] [place] [address] Dr. Gasper Vega Basophils/100 WBC (Bld) 0.4 % Normal 0.2-2.0 [facility] Comment on above: Performed By: #### C BC #### [facility] [address] [place] [address] Dr. Gasper Vega EO # 0.3 103/ul Normal 0.0-0.7 [facility] Comment on above: Performed By: #### C BC #### [facility] [address] [place] [address] Dr. Gasper Vega Eosinophils/100 WBC (Bld) 3.1 % Normal 0.9-7.0 [facility] Comment on above: Performed By: #### C BC #### [facility] [address] [place] [address] Dr. Gasper Vega Erythrocyte distribution width (RBC) [Ratio] 13.0 % Normal 11.0-15.0 [facility] Comment on above: Performed By: #### C BC #### [facility] [address] [place] [address] Dr. Gasepr Vega Hematocrit (Bld) [Volume fraction] 39.4 % Critically low 42.0-54.0 [facility] Comment on above: Performed By: #### C BC #### [facility] [address] [place] [address] Dr. Gasper Vega Hemoglobin (Bld) [Mass/Vol] 13.2 g/dL Critically low 14.0-18.0 [facility] Comment on above: Performed By: #### C BC #### [facility] [address] [place] [address] Dr. Gasper Vega IG # 0.02 10e3/ul Normal 0.00-0.03 [facility] Comment on above: Performed By: #### C BC #### [facility] [address] [place] [address] Dr. Gasper Vega IG % 0.2 % Normal 0.0-0.5 [facility] Comment on above: Performed By: #### C BC #### [facility] [address] [place] [address] Dr. Gasper Vega LYMPH # 1.9 103/ul Normal 1.2-3.8 [facility] Comment on above: Performed By: #### C BC #### [facility] [address] [place] [address] Dr. Gasper Vega Lymphocytes/100 WBC (Bld) 22.7 % Normal 20.5-60.0 [facility] Comment on above: Performed By: #### C BC #### [facility] [address] [place] [address] Dr. Gasper Vega MANUAL DIFF REQ NO Normal [facility] Comment on above: Performed By: #### C BC #### [facility] [address] [place] [address] Dr. Gasper Vega MCH (RBC) [Entitic mass] 30.7 pg Normal 25.9-34.0 [facility] Comment on above: Performed By: #### C BC #### [facility] [address] [place] [address] Dr. Gasper Vega MCHC (RBC) [Mass/Vol] 33.5 g/dL Normal 29.9-35.2 [facility] Comment on above: Performed By: #### C BC #### [facility] [address] [place] [address] Dr. Gasper Vega MCV (RBC) [Entitic vol] 91.6 fL Normal 80.0-94.0 [facility] Comment on above: Performed By: #### C BC #### [facility] [address] [place] [address] Dr. Gasper Vega MONO # 0.9 103/ul Critically high 0.3-0.8 [facility] Comment on above: Performed By: #### C BC #### [facility] [address] [place] [address] Dr. Gasper Vega Monocytes/100 WBC (Bld) 10.9 % Normal 1.7-12.0 [facility] Comment on above: Performed By: #### C BC #### [facility] [address] [address] [address] Gasper Vega NEUT # 5.3 103/ul Normal 1.4-6.5 [facility] Comment on above: Performed By: #### C BC #### [facility] [address] [address] [address] Gasper Vega Neutrophils/100 WBC (Bld) 62.7 % Normal 43.0-75.0 [facility] Comment on above: Performed By: #### C BC #### [facility] [address] [place] [address] Dr. Gasper Vega Platelet mean volume (Bld) [Entitic vol] 8.5 fL Critically low 9.5-13.5 [facility] Comment on above: Performed By: #### C BC #### [facility] [address] [place] [address] Dr. Gasper Vega PLT 286 103/ul Normal 150-450 [facility] Comment on above: Performed By: #### C BC #### [facility] [address] [place] [address] Dr. Gasper Vega RBC 4.30 106/ul Critically low 4.70-6.10 [facility] Comment on above: Performed By: #### C BC #### [facility] [address] [place] [address] Dr. Gasper Vega WBC 8.4 103/ul Normal 4.0-11.0 [facility] Comment on above: Performed By: #### C BC #### [facility] [address] [place] [address] Dr. Gasper Vega DIRECT LDLon 07-27-2022 Cholesterol in LDL [Mass/Vol] 93 mg/dL Normal [facility] Comment on above: Performed By: #### L IPID, BMP, LIVER, DLDL, TSH #### [facility] [address] [address] [address] Gasper Vega DLDL NORMAL SEE BELOW Normal [facility] Comment on above: Result Comment: <100 mg/dl OPTIMAL 100 - 129 mg/dl NEAR OR ABOVE OPTIMAL 130 - 159 mg/dl BORDERLINE HIGH 160 - 189 mg/dl HIGH >190 mg/dl VERY HIGH Performed By: #### L IPID, BMP, LIVER, DLDL, TSH #### [facility] [address] [address] [address] Gasper Vega GLYCOHEMOGLOBIN A1Con 2021 ADA RECOMMENDATION SEE BELOW Normal [facility] Comment on above: Result Comment: ADA RECOMMENDED LIMIT 4.0 - 6.0 ADA THERAPEUTIC TARGET < 7.0 ACTION SUGGESTED > 7.0 Performed By: #### A 1C #### [facility] [address] [address] [address] Gasper Vega Glucose [Mass/Vol] 137 mg/dL Normal [facility] Comment on above: Performed By: #### A 1C #### [facility] [address] [address] [address] Gasper Vega HbA1c (Bld) [Mass fraction] 6.4 % Critically high 4.5-6.2 [facility] Comment on above: Performed By: #### A 1C #### [facility] [address] [address] [address] Gasper Vega LIPID PROFILEon 07-27-2022 CHOL-HDL RATIO NORM SEE BELOW Normal [facility] Comment on above: Result Comment: 3.3 - 4.4 LOW RISK 4.4 - 7.1 AVERAGE RISK 7.1 - 11.0 MODERATE RISK >11.0 HIGH RISK Performed By: #### L IPID, BMP, LIVER, DLDL, TSH #### [facility] [address] [address] [address] Gasper Vega Cholesterol [Mass/Vol] 187 mg/dL Normal <=200 [facility] Comment on above: Performed By: #### L IPID, BMP, LIVER, DLDL, TSH #### [facility] [address] [address] [address] Gasper Vega Cholesterol in HDL [Mass/Vol] 30 mg/dL Critically low 40-60 [facility] Comment on above: Performed By: #### L IPID, BMP, LIVER, DLDL, TSH #### [facility] [address] [address] [address] Gasper Vega Cholesterol.total/Ch olesterol in HDL [Mass ratio] 6.2 {ratio} Normal [facility] Comment on above: Performed By: #### L IPID, BMP, LIVER, DLDL, TSH #### [facility] [address] [address] [address] Gasper Vega HDL NORMAL > or = 60 mg/dl - LOW CARDIOVASCULAR RISK <40 mg/dl - HIGH CARDIOVASCULAR RISK Normal [facility] Comment on above: Performed By: #### L IPID, BMP, LIVER, DLDL, TSH #### [facility] [address] [address] [address] Gasper Vega Triglyceride [Mass/Vol] 405 mg/dL Critically high <=150 [facility] Comment on above: Performed By: #### L IPID, BMP, LIVER, DLDL, TSH #### [facility] [address] [address] [address] Gasper Vega VLDL CALC 81.0 mg/dL Normal [facility] Comment on above: Performed By: #### L IPID, BMP, LIVER, DLDL, TSH #### [facility] [address] [address] [address] Gasper Vega LIVER PROFILEon 07-27-2022 Albumin [Mass/Vol] 3.8 g/dL Normal 3.4-5.0 [facility] Comment on above: Performed By: #### L IPID, BMP, LIVER, DLDL, TSH #### [facility] [address] [address] [address] Gasper Veag Albumin/Globulin [Mass ratio] 1.2 {ratio} Normal [facility] Comment on above: Performed By: #### L IPID, BMP, LIVER, DLDL, TSH #### [facility] [address] [address] [address] Gasper Vega ALP [Catalytic activity/Vol] 76 U/L Normal 46-116 [facility] Comment on above: Performed By: #### L IPID, BMP, LIVER, DLDL, TSH #### [facility] [address] [place] [address] Dr. Gasper Vega ALT [Catalytic activity/Vol] 50 U/L Normal 16-63 [facility] Comment on above: Performed By: #### L IPID, BMP, LIVER, DLDL, TSH #### [facility] [address] [place] [address] Dr. Gasper Vega AST [Catalytic activity/Vol] 21 U/L Normal 15-37 [facility] Comment on above: Performed By: #### L IPID, BMP, LIVER, DLDL, TSH #### [facility] [address] [place] [address] Dr. Gasper Vega BILI, CONJUGATED 0.0 mg/dL Normal 0.0-0.2 [facility] Comment on above: Performed By: #### L IPID, BMP, LIVER, DLDL, TSH #### [facility] [address] [place] [address] Dr. Gasper Vega Bilirubin [Mass/Vol] 0.3 mg/dL Normal 0.2-1.0 [facility] Comment on above: Performed By: #### L IPID, BMP, LIVER, DLDL, TSH #### [facility] [address] [place] [address] Dr. Gasper Vega Globulin (S) [Mass/Vol] 3.3 g/dL Normal [facility] Comment on above: Performed By: #### L IPID, BMP, LIVER, DLDL, TSH #### [facility] [address] [place] [address] Dr. Gasper Vega Protein [Mass/Vol] 7.1 g/dL Normal 6.4-8.2 [facility] Comment on above: Performed By: #### L IPID, BMP, LIVER, DLDL, TSH #### [facility] [address] [place] [address] Dr. Gasper Vega PROF CHEM 8 (BAS METB)on Anion gap [Moles/Vol] 15.2 mmol/L Normal [facility] Comment on above: Performed By: #### L IPID, BMP, LIVER, DLDL, TSH #### [facility] [address] [address] [address] Gasper Vega Calcium [Mass/Vol] 8.9 mg/dL Normal 8.5-10.1 [facility] Comment on above: Performed By: #### L IPID, BMP, LIVER, DLDL, TSH #### [facility] [address] [address] [address] Gasper Vega Chloride [Moles/Vol] 104 mmol/L Normal 98-107 [facility] Comment on above: Performed By: #### L IPID, BMP, LIVER, DLDL, TSH #### [facility] [address] [place] [address] Dr. Gasper Vega CO2 [Moles/Vol] 24.9 mmol/L Normal 21.0-32.0 [facility] Comment on above: Performed By: #### L IPID, BMP, LIVER, DLDL, TSH #### [facility] [address] [place] [address] Dr. Gasper Vega Creatinine [Mass/Vol] 0.79 mg/dL Normal 0.70-1.30 [facility] Comment on above: Performed By: #### L IPID, BMP, LIVER, DLDL, TSH #### [facility] [address] [place] [address] Dr. Gasper Vega EGFR-AF TRINIDADIAN >60 Normal >=60 [facility] Comment on above: Performed By: #### L IPID, BMP, LIVER, DLDL, TSH #### [facility] [address] [place] [address] Dr. Gasper Vega EGFR-NON AF TRINIDADIAN >60 Normal >=60 [facility] Comment on above: Performed By: #### L IPID, BMP, LIVER, DLDL, TSH #### [facility] [address] [place] [address] Dr. Gasper Vega Glucose [Mass/Vol] 126 mg/dL Critically high 74-106 [facility] Comment on above: Performed By: #### L IPID, BMP, LIVER, DLDL, TSH #### [facility] [address] [place] [id number] Dr[address] Gasper Vega Potassium [Moles/Vol] 4.1 mmol/L Normal 3.5-5.1 [facility] Comment on above: Performed By: #### L IPID, BMP, LIVER, DLDL, TSH #### [facility] [address] [place] [address] Dr. Gasper Vega Sodium [Moles/Vol] 140 mmol/L Normal 136-145 [facility] Comment on above: Performed By: #### L IPID, BMP, LIVER, DLDL, TSH #### [facility] [address] [place] [address] Dr. Gasper Vega Urea nitrogen [Mass/Vol] 14.0 mg/dL Normal 7.0-18.0 [facility] Comment on above: Performed By: #### L IPID, BMP, LIVER, DLDL, TSH #### [facility] [address] [place] [address] Dr. Gasper Vega Urea nitrogen/Creatinine [Mass ratio] 17.7 mg/mg Normal [facility] Comment on above: Performed By: #### L IPID, BMP, LIVER, DLDL, TSH #### [facility] [address] [place] [address] Dr. Gasper Vega TSHon 07-27-2022 TSH 0.913 uIU/mL Normal 0.358-3.740 [facility] Comment on above: Performed By: #### L IPID, BMP, LIVER, DLDL, TSH #### [facility] [address] [place] [address] Dr. Gasper Vega Vital Signs Date Time Vital Sign Value Performing Clinician Dale garibayy 06-20-2025 09:05-0400 Body mass index (BMI) [Ratio] 32.75 kg/m2 Melissa Moeller [employer]ISTICS MANAGER Work Phone: [facility] 06-20-2025 09:05-0400 Body temperature 98.2 [degF] Melissa Moeller SUPPLY CHAIN LOGISTICS MANAGER Work Phone: [facility] 06-20-2025 09:05-0400 Body weight 97.7 kg Melissa Moeller SUPPL[employer] CH[employer] LOGISTICS MANAGER Work Phone: [facility] 06-20-2025 09:05-0400 Diastolic blood pressure 82 mm[Hg] Melissa Morenoholz [employer] CH[employer] LOGISTICS MANAGER Work Phone: [facility] 06-20-2025 09:05-0400 Heart rate 76 /min Melissagary Morenoholz [employer] CH[employer] LOGISTICS MANAGER Work Phone: [facility] 06-20-2025 09:05-0400 Respiratory rate 18 /min Melissagary Morenoholz [employer] CH[employer] LOGISTICS MANAGER Work Phone: [facility] 06-20-2025 09:05-0400 SaO2% (BldA) [Mass fraction] 97 % Melissa Marksz [employer] CH[employer] LOGISTICS MANAGER Work Phone: [facility] 06-20-2025 09:05-0400 Systolic blood pressure 132 mm[Hg] Melissa Marksz [employer]PPL[employer] CH[employer] LOGISTICS MANAGER Work Phone: [facility] 12-04-2024 15:24-0500 Body height 172.7 cm Loretta Jones SUP[employer] CHAIN LOGISTICS MANAGER Work Phone: [facility] 12-04-2024 15:24-0500 Body mass index (BMI) [Ratio] 33.45 kg/m2 Loretta Jones [employer]PPL[employer] CH[employer] LOGISTICS MANAGER Work Phone: [facility] 12-04-2024 15:24-0500 Body temperature 98.71 [degF] Loretta Jones SUPPLY CHAIN LOGISTICS MANAGER Work Phone: [facility] 12-04-2024 15:24-0500 Body weight 99.79 kg Loretta Jones SUPPLY CHAIN LOGISTICS MANAGER Work Phone: [facility] 12-04-2024 15:24-0500 Diastolic blood pressure 86 mm[Hg] Loretta Jones SUPPLY CHAIN LOGISTICS MANAGER Work Phone: [facility] 12-04-2024 15:24-0500 Heart rate 84 /min Loretta Jones SUP[employer] CHAIN LOGISTICS MANAGER Work Phone: [facility] 12-04-2024 15:24-0500 Respiratory rate 16 /min Loretta Moranpatrick SUPPLY CHAIN LOGISTICS MANAGER Work Phone: [facility] 12-04-2024 15:24-0500 SaO2% (BldA) [Mass fraction] 98 % Loretta Wellszpatrick SUPPLY CHAIN LOGISTICS MANAGER Work Phone: [facility] 12-04-2024 15:24-0500 Systolic blood pressure 142 mm[Hg] Loretta Wellszpatrick SUPPLY CHAIN LOGISTICS MANAGER Work Phone: [facility] 08-15-2024 09:17-0400 Body height 175.3 cm Franklyn Bourne MD Work Phone: [facility] 08-15-2024 09:17-0400 Body mass index (BMI) [Ratio] 32.78 kg/m2 Franklyn Bourne MD Work Phone: [facility] 08-15-2024 09:17-0400 Body weight 100.7 kg Franklyn Bourne MD Work Phone: [facility] 08-15-2024 09:17-0400 Diastolic blood pressure 86 mm[Hg] Franklyn Bourne MD Work Phone: [facility] 08-15-2024 09:17-0400 Systolic blood pressure 141 mm[Hg] Franklyn Bourne MD Work Phone: [facility] 07-18-2024 14:13-0400 Body height 175.3 cm Ella SANDOVAL Work Phone: [facility] 07-18-2024 14:13-0400 Body mass index (BMI) [Ratio] 32.05 kg/m2 Ella SANDOVAL Work Phone: [facility] 07-18-2024 14:13-0400 Body weight 98.43 kg Ella SANDOVAL Work Phone: [facility] Healthcare Encounters Encounter Date Encounter Type Care Provider Facility Start: 06-20-2025 End: 06-20-2025 Bamboo flowscarlos alberto Moeller SUP[employer] LOGISTICS MANAGER Work Phone: [facility] Start: 06-20-2025 End: 06-20-2025 Bamboo flowsheet Melissa Sajan [employer] CH[employer] LOGISTICS MANAGER Work Phone: [facility] Start: 06-20-2025 End: 06-20-2025 Office outpatient visit 25 minutes Melissa Moeller SUPPL[employer] CH[employer] LOGISTICS MANAGER Work Phone: [facility] Comment on above: Type 2 diabetes yuliana itus without complication, without long- term current use of insulin (HCC) (Primary Dx); Primary hypertension ; Elevated PSA, less than 10 ng/ml; Class 1 obesity due to excess calories with body mass index (BMI) of 33.0 to 33.9 in adult, unspecified whether serious comorbidity present; Abnormal glucose level; Dysuria; Iron deficiency anemia, unspecified iron deficiency anemia type Start: 06-18-2025 End: 06-18-2025 Clinisync Result Encounter Melissa Sajan [employer] CH[employer] LOGISTICS MANAGER Work Phone: [facility] External Department Unsolicited Start: 06-18-2025 End: 06-18-2025 Clinisync Result Encounter Melissa Elizabethxeniaradha [employer] CH[employer] LOGISTICS MANAGER Work Phone: [facility] External Department Unsolicited Start: 06-18-2025 End: 06-18-2025 Orders Only Melissa Elizabethxeniaradha SUPPL[employer] CHAIN LOGISTICS MANAGER Work Phone: [facility] Comment on above: Elevated PSA, less t merritt 10 ng/ml (Primary Dx) Elevated random bloo d glucose level (Primary Dx) Start: 05-01-2025 End: 05-01-2025 Orders Only Melissa Sajan SUPPL[employer] CHAIN LOGISTICS MANAGER Work Phone: [facility] Comment on above: Primary hypertension (CMS/HCC) (Primary Dx); Vitamin D deficiency; Class 1 obesity due to excess calories with body mass index (BMI) of 33.0 to 33.9 in adult, unspecified whether serious comorbidity present; Screening PSA (prostate specific antigen) Start: 04-24-2025 End: 04-24-2025 Refill Franklyn Bourne MD Work Phone: [facility] Comment on above: Nasal polyp; Chronic pansinusitis Start: 12-04-2024 End: 12-04-2024 Office outpatient visit 15 minutes Loretta Jones SUPPL[employer] CH[employer] LOGISTICS MANAGER Work Phone: [facility] Comment on above: Primary hypertension (CMS/HCC) (Primary Dx); Elevated random blood glucose level; Screening for hyperlipidemia Start: 12-04-2024 End: 12-04-2024 ambulatory LORETTA JONES Not Available Start: 10-11-2024 End: 10-11-2024 Refill Shelly Eubanks MA [facility] Comment on above: Primary hypertension (CMS/HCC) Start: 10-09-2024 End: 10-09-2024 Refill Shelly Eubanks MA [facility] Comment on above: Primary hypertension (CMS/HCC) Start: 08-15-2024 End: 08-15-2024 Bamboo flowsheet Franklyn Bourne MD Work Phone: [facility] Start: 08-15-2024 End: 08-15-2024 Bamboo flowsheet Franklyn Bourne MD Work Phone: [facility] Start: 08-15-2024 End: 08-15-2024 Office outpatient visit 15 minutes Franklyn Bourne MD Work Phone: [facility] Comment on above: Nasal polyp (Primary Dx) Start: 08-15-2024 End: 08-15-2024 ambulatory FRANKLYN BOURNE Not Available Start: 08-14-2024 End: 08-14-2024 Bamboo flowsheet Merced Mccall SUPPLY CHAIN LOGISTICS MANAGER Work Phone: [facility] Start: 08-14-2024 End: 08-14-2024 Bamboo flowsheet Merced Mccall SUPPLY CHAIN LOGISTICS MANAGER Work Phone: [facility] Start: 08-14-2024 End: 08-14-2024 Postop follow up visit related to original px Merced Mccall [employer]PPL[employer] CHAIN LOGISTICS MANAGER Work Phone: [facility] Comment on above: Status post arthrosc opy of right knee (Primary Dx) Start: 08-14-2024 End: 08-14-2024 ambulatory MERCED MCCALL Not Available Start: 08-09-2024 End: 08-09-2024 Bamboo flowsheet Merced Mccall SUPPLY CHAIN LOGISTICS MANAGER Work Phone: [facility] Start: 08-09-2024 End: 08-09-2024 Bamboo flowsheet Merced Mccall SUPPLY CHAIN LOGISTICS MANAGER Work Phone: [facility] Start: 08-09-2024 End: 08-09-2024 ambulatory MERCED MCCALL Not Available Start: 08-09-2024 End: 08-09-2024 Postop follow up visit related to original px Merced Mccall SUPPLY CHAIN LOGISTICS MANAGER Work Phone: [facility] Comment on above: Status post arthrosc opy of right knee (Primary Dx); Nondisplaced fracture of medial condyle of right femur, subsequent encounter for closed fracture with routine healing Start: 07-26-2024 End: 07-26-2024 Telephone encounter Jr. Justine Whyte DO Work Phone: [facility] Comment on above: Post-operative pain (Primary Dx) Start: 07-25-2024 End: 07-25-2024 Telephone encounter Bill Patel PT Work Phone: [facility] Comment on above: re: Cancellation (Tr ied to contact re: cx of crutch-train / dispense that was scheduled 07/12 w/ upcoming sx on 07/27/24. I had to lm requesting a call to check status and to seek cx details.) Start: 07-18-2024 End: 07-18-2024 Patient encounter procedure Ella SANDOVAL Work Phone: [facility] Comment on above: Pre-op examination ( Primary Dx) Start: 07-18-2024 End: 07-18-2024 Preprocedural examination done Ella SANDOVAL Work Phone: [facility] Work Phone: Start: 07-18-2024 End: 07-18-2024 ambulatory ELLA OAKLEY Not Available Start: 07-18-2024 End: 07-18-2024 Bamboo flowsheet Ella Oakley PA Work Phone: [facility] Start: 07-18-2024 End: 07-18-2024 Bamboo flowsheet Ella Oakley PA Work Phone: [facility] Start: 07-11-2024 End: 07-11-2024 ambulatory LORETTA JONES Not Available Start: 07-10-2024 End: 07-10-2024 ambulatory JUSTINE MARIE Not Available Start: 07-05-2024 End: 07-05-2024 ambulatory FRANKLYN H TIMMIS Not Available Start: 06-27-2024 End: 06-27-2024 [facility] Start: 06-05-2024 End: 06-05-2024 ambulatory SHAIKH TRISTAN Not Available Start: 04-11-2024 End: 04-11-2024 ambulatory SHAIKH TRISTAN Not Available Start: 04-05-2024 End: 04-05-2024 ambulatory MARLENY OLIVASTHOMPSONMarcela Not Available Start: 04-04-2024 End: 04-04-2024 ambulatory FRANKLYN H TIMMIS Not Available Start: 03-30-2024 End: 03-31-2024 ambulatory Franklyn H Timmis Facility:[facility] Start: 03-30-2024 End: 03-30-2024 Patient encounter procedure Franklyn H Timmis [facility] Start: 02-28-2024 End: 02-28-2024 ambulatory FRANKLYN H TIMMIS Not Available Start: 02-03-2024 End: 02-04-2024 ambulatory KORI J JOANNE Not Available Start: 02-01-2024 End: 02-02-2024 ambulatory KORI J JOANNE Not Available Start: 01-25-2024 End: 01-25-2024 ambulatory CELESTINA MORATAYA Not Available Start: 01-18-2024 End: 01-18-2024 ambulatory CELESTINA MORATAYA Not Available Start: 01-17-2024 End: 01-17-2024 ambulatory SHAIKH TRISTAN Not Available Start: 01-14-2024 End: 01-14-2024 ambulatory CELESTINA MORATAYA Not Available Start: 01-11-2024 End: 01-11-2024 ambulatory Celestina Morataya TRIAL PARALEGAL Work Phone: [facility] Comment on above: Chronic pain of left knee (Primary Dx) Start: 01-11-2024 Bamboo flowsheet Celestina Wrig ht TRIAL [employer]GAL Work Phone: [facility] Start: 01-11-2024 Bamboo flowsheet Celestina Wrig ht TRIAL PARALEGAL Work Phone: [facility] Start: 01-06-2024 [...] examination without abnormal findings DR LEROY BARBA [facility] Start: 07-27-2022 End: 07-28-[address] LEROY BARBA Facility:[facility] Start: 07-27-2022 End: 07-28-2022 Encounter for general adult medical examination without abnormal findings DR LEROY BARBA Facility:[facility] Procedures Date Procedure Procedure Detail Performing Clinician Start: 06-20-2025 Hemoglobin glycosyla sonia a1c Melissa Moeller SUPPLY CH[employer] LOGISTICS MANAGER Work Phone: Start: 06-18-2025 ALL CBC WITH AUTO DIFF Melissa Moeller SUPPLY CHAIN LOGISTICS MANAGER Work Phone: Start: 03-11-2023 Colonoscopy Ella telly PA Work Phone: Start: 07-27-[address] LEROY FOSTER Comment on above: Performed By: #### P [facility] #### [facility] [address] [place] [address] Dr. Gasper Vega Plan of Treatment Date Care Activity Detail Author Start: 03-11-2033 Screening for malign ant neoplasm of colon [facility] Start: 09-24-2025 End: 09-24-2025 Patient encounter procedure 09/24/2025 6:00 PM EDT Office Visit [facility] [address] [place] [address] Melissa oMeller, SUPPLY CHAIN LOGISTICS MANAGER [address] [place] [phone] [facility] Start: 07-30-2025 Influenza vaccination Influenza Vacc ine (#1) [facility] Start: 06-21-2025 End: 06-21-2025 Patient encounter procedure 06/21/2025 9:00 AM EDT Office Visit [facility] [address] [place] [address] Melissa Moeller, SUPPLY CHAIN LOGISTICS MANAGER [address] [place] [phone] [facility] Start: 06-20-2025 End: 06-20-2026 Bacteria identified in Urine by Culture Urine culture (clean catch) Microbiology Routine Dysuria Expected: 06/20/2025 (Approximate), Expires: 06/20/2026 [facility] Work Phone: Comment on above: Expected: 06/20/2025 (Approximate), Expires: 06/20/2026 Start: 06-20-2025 End: 06-20-2026 Cobalamin (Vitamin B12) [Mass/volume] in Serum or Plasma Vitamin B12 Lab Routine Iron deficiency anemia, unspecified iron deficiency anemia type Expected: 06/20/2025 (Approximate), Expires: 06/20/2026 [facility] Comment on above: Expected: 06/20/2025 (Approximate), Expires: 06/20/2026 Start: 06-20-2025 End: 06-20-2026 Ferritin [Mass/volume] in Serum or Plasma Ferritin Lab Routine Iron deficiency anemia, unspecified iron deficiency anemia type Expected: 06/20/2025 (Approximate), Expires: 06/20/2026 [facility] Comment on above: Expected: 06/20/2025 (Approximate), Expires: 06/20/2026 Start: 06-20-2025 End: 06-20-2026 Iron + transferrin + TIBC Iron + transferrin + TIBC Lab Routine Iron deficiency anemia, unspecified iron deficiency anemia type Expected: 06/20/2025 (Approximate), Expires: 06/20/2026 [facility] Comment on above: Expected: 06/20/2025 (Approximate), Expires: 06/20/2026 Start: 06-20-2025 End: 06-20-2025 Patient encounter procedure [facility] Comment on above: Primary hypertension (Primary Dx); Elevated PSA, less than 10 ng/ml; Class 1 obesity due to excess calories with body mass index (BMI) of 33.0 to 33.9 in adult, unspecified whether serious comorbidity present Start: 06-18-2025 End: 06-18-2026 Hemoglobin A1c/Hemoglobin.total in Blood Hemoglobin A1c Lab Routine Elevated random blood glucose level Expected: 06/18/2025 (Approximate), Expires: 06/18/2026 [facility] Work Phone: Comment on above: Expected: 06/18/2025 (Approximate), Expires: 06/18/2026 Start: 06-18-2025 End: 06-18-2026 PSA, total and free PSA, total and free Lab Routine Elevated PSA, less than 10 ng/ml Expected: 06/18/2025 (Approximate), Expires: 06/18/2026 [facility] Work Phone: Comment on above: Expected: 06/18/2025 (Approximate), Expires: 06/18/2026 Start: 05-01-2025 End: 05-01-2026 25-hydroxyvitamin D3 [Mass/volume] in Serum or Plasma Vitamin D 25 hydroxy Lab Routine Vitamin D deficiency Expected: 05/01/2025 (Approximate), Expires: 05/01/2026 [facility] Comment on above: Expected: 05/01/2025 (Approximate), Expires: 05/01/2026 Start: 05-01-2025 End: 05-01-2026 CBC W Auto Differential panel - Blood CBC and differential Lab Routine Primary hypertension (CMS/HCC) Expected: 05/01/2025 (Approximate), Expires: 05/01/2026 [facility] Work Phone: Comment on above: Expected: 05/01/2025 (Approximate), Expires: 05/01/2026 Start: 05-01-2025 End: 05-01-2026 Comprehensive metabolic 2000 panel - Serum or Plasma Comprehensive metabolic panel Lab Routine Primary hypertension (CMS/HCC) Expected: 05/01/2025 (Approximate), Expires: 05/01/2026 [facility] Comment on above: Expected: 05/01/2025 (Approximate), Expires: 05/01/2026 Start: 05-01-2025 End: 05-01-2026 Lipid 1996 panel - Serum or Plasma Lipid panel Lab Routine Class 1 obesity due to excess calories with body mass index (BMI) of 33.0 to 33.9 in adult, unspecified whether serious comorbidity present Expected: 05/01/2025 (Approximate), Expires: 05/01/2026 [facility] Comment on above: Expected: 05/01/2025 (Approximate), Expires: 05/01/2026 Start: 05-01-2025 End: 05-01-2026 Microalbumin/Creatinine panel in random Urine Microalbumin / creatinine, urine ratio Lab Routine Primary hypertension (CMS/HCC) Expected: 05/01/2025 (Approximate), Expires: 05/01/2026 [facility] Comment on above: Expected: 05/01/2025 (Approximate), Expires: 05/01/2026 Start: 05-01-2025 End: 05-01-2026 Prostate specific Ag [Mass/volume] in Serum or Plasma PSA Lab Routine Screening PSA (prostate specific antigen) Expected: 05/01/2025 (Approximate), Expires: 05/01/2026 [facility] Comment on above: Expected: 05/01/2025 (Approximate), Expires: 05/01/2026 Start: 05-01-2025 End: 05-01-2026 Thyrotropin [Units/volume] in Serum or Plasma TSH Lab Routine Class 1 obesity due to excess calories with body mass index (BMI) of 33.0 to 33.9 in adult, unspecified whether serious comorbidity present Expected: 05/01/2025 (Approximate), Expires: 05/01/2026 [facility] Comment on above: Expected: 05/01/2025 (Approximate), Expires: 05/01/2026 Start: 05-01-2025 End: 05-01-2026 Urinalysis complete panel - Urine Urinalysis with reflex microscopic (clean catch) Lab Routine Primary hypertension (CMS/HCC) Expected: 05/01/2025 (Approximate), Expires: 05/01/2026 [facility] Comment on above: Expected: 05/01/2025 (Approximate), Expires: 05/01/2026 Start: 12-04-2024 End: 12-04-2024 Patient encounter procedure 12/04/2024 3:30 PM EST Office Visit [facility] [address] [place] [address] Loretta Jones NP [address] [facility] [place] [address] [facility] Start: 12-04-2024 End: 12-04-2025 CBC W Auto Differential panel - Blood CBC and differential Lab Routine Primary hypertension (CMS/HCC) Expected: 12/04/2024 (Approximate), Expires: 12/04/2025 [facility] Comment on above: Expected: 12/04/2024 (Approximate), Expires: 12/04/2025 Start: 12-04-2024 End: 12-04-2025 Comprehensive metabolic 2000 panel - Serum or Plasma Comprehensive metabolic panel Lab Routine Primary hypertension (CMS/HCC) Expected: 12/04/2024 (Approximate), Expires: 12/04/2025 [facility] Comment on above: Expected: 12/04/2024 (Approximate), Expires: 12/04/2025 Start: 12-04-2024 End: 12-04-2025 Hemoglobin A1c/Hemoglobin.total in Blood Hemoglobin A1c Lab Routine Elevated random blood glucose level Expected: 12/04/2024 (Approximate), Expires: 12/04/2025 [facility] Comment on above: Expected: 12/04/2024 (Approximate), Expires: 12/04/2025 Start: 12-04-2024 End: 12-04-2025 Lipid 1996 panel - Serum or Plasma Lipid panel Lab Routine Screening for hyperlipidemia Expected: 12/04/2024 (Approximate), Expires: 12/04/2025 [facility] Comment on above: Expected: 12/04/2024 (Approximate), Expires: 12/04/2025 Start: 12-04-2024 End: 12-04-2025 Microalbumin/Creatinine panel in random Urine Microalbumin / creatinine urine ratio Lab Routine Primary hypertension (CMS/HCC) Expected: 12/04/2024 (Approximate), Expires: 12/04/2025 [facility] Work Phone: Comment on above: Expected: 12/04/2024 (Approximate), Expires: 12/04/2025 Start: 11-14-2024 End: 11-14-2024 Patient encounter procedure 11/14/2024 9:00 AM EST Office Visit [facility] [address] [facility] [address] [place] [phone] Franklyn Bourne MD [address] [facility] [address] [place] [address] [facility] Start: 08-15-2024 End: 08-15-2024 Patient encounter procedure [facility] Comment on above: Arrived Start: 08-14-2024 End: 08-14-2024 Patient encounter procedure [facility] Comment on above: Arrived Start: 08-09-2024 End: 08-09-2024 Patient encounter procedure 08/09/2024 10:00 AM EDT Office Visit [facility] [address] [place] [phone] Merced Mccall, SUPPLY CHAIN LOGISTICS MANAGER [address] [place], [place] [phone] [facility] Start: 07-30-2024 Influenza vaccination Influenza Vacc ine (#1) [facility] Start: 07-27-2024 End: 07-27-2024 Patient encounter procedure 07/27/2024 12:45 PM EDT Procedure Visit [facility] Jr. Justine Whyte DO [address] [facility] [address] [place] [address] [facility] Start: 07-18-2024 End: 07-18-2024 Patient encounter procedure 07/18/2024 3:00 PM EDT Office Visit [facility] [address] [place] [phone] Ella Oakley PA [address] [facility] [address] [place] [address] Pre-op examination (Primary Dx) [facility] Comment on above: Pre-op examination ( Primary Dx) Start: 02-28-2024 End: 02-28-2024 Patient encounter procedure 02/28/2024 8:00 AM EDT Office Visit [facility] [address] [facility] [address] [place] [phone] Franklyn Bourne MD [address] [facility] [address] [place] [address] [facility] Start: 02-10-2024 End: 02-10-2024 ambulatory 02/10/2024 5:00 PM EDT Treatment [facility] [address] [place] [phone] Kori Rubio, PT [address] [place] [address] [facility] Start: 02-08-2024 End: 02-08-2024 ambulatory 02/08/2024 5:00 PM EDT Treatment [facility] [address] [place] [phone] Celestina Morataya, TRIAL PARALEGAL [address] [place] [address] [facility] Start: 02-03-2024 End: 02-03-2024 ambulatory 02/03/2024 5:00 PM EST Treatment [facility] [address] [place] [address] Kori Rubio, PT [address] [place] [address] [facility] Start: 02-01-2024 End: 02-01-2024 ambulatory 02/01/2024 5:00 PM EST Treatment [facility] [address] [place] [address] Kori Rubio, PT [address] [place] [address] [facility] Start: 01-27-2024 End: 01-27-2024 ambulatory 01/27/2024 5:00 PM EST Treatment [facility] [address] [place] [phone] Celestina Morataya, TRIAL PARALEGAL [address] [place] [address] [facility] Start: 01-25-2024 End: 01-25-2024 ambulatory 01/25/2024 5:00 PM EST Treatment [facility] [address] [place] [address] Celestina Morataya, TRIAL PARALEGAL [address] [place] [address] [facility] Start: 01-20-2024 End: 01-20-2024 ambulatory 01/20/2024 5:00 PM EST Treatment [facility] [address] [place] [phone] Celestina Morataya, TRIAL PARALEGAL [address] [place] [address] [facility] Start: 01-18-2024 End: 01-18-2024 ambulatory [facility] Start: 01-17-2024 End: 01-17-2024 Patient encounter procedure 01/17/2024 10:00 AM EST Office Visit [facility] [address] [place] [address] Shaikh Hudson MD [address] [place] [address] [facility] Start: 01-14-2024 End: 01-14-2024 ambulatory 01/14/2024 9:00 AM EST Treatment [facility] [address] [place] [phone] Celestina Morataya, TRIAL PARALEGAL [address] [place] [address] [facility] Start: 01-11-2024 End: 01-11-2024 ambulatory [facility] Comment on above: Arrived Start: 07-30-2023 Influenza vaccination Influenza Vacc ine (#1) [facility] Start: 1970 Screening for malign ant neoplasm of colon [facility] Immunizations Immunization Date Immunization Notes Care Provider Fa [facility] 08-29-2024 influenza, seasonal, injectable Loretta Jones SUPPLY CHAIN LOGISTICS MANAGER Work Phone: [facility] 08-29-2024 influenza virus vaccine, unspecified formulation Melissa Moeller SUPPLY CHAIN LOGISTICS MANAGER Work Phone: [facility] Healthcare Payers Date Payer Category Payer Unknown [id number] 2016 Private Health Insurance [employer] [id number] 5 2016 Unknown [employer] [id number] 2016-Present [address] [place] [address] [id number] .[id number] 1970 Unknown [id number] 2.16.840.1.950002.3.579 .2.593 1970 Unknown [id number] 2.16.840.1.394993.3.579 .2.727 1970 Unknown [id number] 2.16.840.1.417564.3.579 .2.1286 1970 Unknown [id number] 2.16.840.1.604496.3.579 .2.1259 1970 Unknown [id number] 2.16.840.1.159418.3.579 .2.1258 1970 Unknown [id number] 2.16.840.1.702997.3.579 .2.9 1970 Unknown [id number] 2.16.840.1.664079.3.579 .2.1259 1970 Unknown [id number] 2.16.840.1.122781.3.579 .2.1259 1970 Unknown [id number] 2.16.840.1.238706.3.579 .2.9 1970 Unknown [id number] 2.16.840.1.288863.3.579 .2.9 1970 Unknown [id number] 2.16.840.1.172502.3.579 .2.9 1970 Unknown [id number] 2.16.840.1.078560.3.579 .2.1259 1970 Unknown [id number] 2.16.840.1.077388.3.579 .2.9 1970 Unknown [id number] 2.16.840.1.491916.3.579 .2.9 1970 Unknown [id number] 2.16.840.1.096366.3.579 .2.9 1970 Unknown [id number] 2.16.840.1.246114.3.579 .2.9 1970 Unknown [id number] 2.16.840.1.562674.3.579 .2.9 1970 Unknown [id number] 2.16.840.1.181014.3.579 .2.9 1970 Unknown [id number] 2.16.840.1.781538.3.579 .2.9 1970 Unknown [id number] 2.16.840.1.766435.3.579 .2.9 1970 Unknown [id number] 2.16.840.1.892089.3.579 .2.9 1970 Unknown [id number] 2.16.840.1.039523.3.579 .2.9 1970 Unknown [id number] 2.16.840.1.713024.3.579 .2.9 1970 Unknown [id number] 2.16.840.1.537540.3.579 .2.1259 1959 Unknown [id number] Social History Date Type Detail Facility Start: 11-19-2023 End: 01-17-2024 Tobacco smoking status TXIS Never smoked tobacco [facility] Start: 11-19-2023 End: 11-27-2024 History of Social function [facility] Start: 11-19-2023 End: 11-27-2024 Tobacco use panel [facility] Start: 1970 Sex Assigned At Not on file [facility] Tobacco smoking status No Smokin g Status Entered [facility] Start: 01-17-2024 Tobacco use and exposure Smoke less tobacco non-user [facility] Start: 08-15-2024 End: 06-20-2025 Alcoholic beverage intake Current drinker of alcohol (finding) [facility] How often do you nee d to have someone help you when you read instructions, pamphlets, or other written material from your doctor or pharmacy [SILS] Never [facility] Do you belong to any clubs or organizations such as roman catholic groups, unions, fraternal or athletic groups, or [...] Not at all [facility] (I/We) worried wheth er (my/our) food would run out before [...] smoker [facility] Clinical Notes 07-18-2024 to 06-20-2025 Melissa Moeller NP - 06/20/2025 10:33 AM Joe Moeller NP - 06/20/2025 10:31 AM Joe Moeller NP - 06/20/2025 9:32 AM ELIZABET COVINGTON - 06/20/2025 9:00 AM EDTPatient Instructions Note Date & Type Note Facility 06-20-2025 History of Presen t illness Narrative Associated Problem(s): Iron deficiency anemia Check Vit b12, iron, ferritin etc Associated Problem(s): Dysuria Took at home test +UTI, has seen some blood No new sexual partners Will treat with bactrim Needs to provide urine sample prior to starting atb Associated Problem(s): Type 2 diabetes mellitus, without long-term current use of insulin (HCC) New onset Will try 3 months of life style modifications: cut back on carbs, ETOH, as well as sugary drinks/foods Exercise 5 times week for 30 minutes Weight loss A1c 7.1% 06/20/25 Pt last seen in office 12/04/24 HTN: [...] has rash under arms and abdominal folds Images from the original note were not [...] compliance problems. There is no history of CAD/NE, heart failure or PVD. Diabetes He presents [...] and urgency. Negative for decreased urine volume and difficulty urinating. Skin: Negative for color change. Neurological: [...] Size: Large adult) Pulse 76 Temp 98.2 F (Temporal) Resp 18 Wt 215 lb 6.4 oz SpO2 97% BMI 32.75 kg/m Smoking Status Never BSA 2.16 m Physical Exam Vitals and nursing note reviewed. [...] glycosylated hemoglobin (Hb A1C) docked device (Completed) Associated Problem(s): Class 1 obesity due to excess calories in adult Discussed with patient their BMI (actual, verses recommended). We have also discussed lifestyle modifications: attempts to perform physical activity as chronic conditions allow, also to monitor dietary intake: increasing protein/fruits/veggies and lowering carb intake (unless contraindicated). Limit sodas, juices, and sugary drinks. Associated Problem(s): Elevated PSA, less than 10 ng/ml Screening PSA: 3.85 06/18/25, this seems to be a bit high for base line level Will order free PSA will do this in 1 month Dysuria may be related to prostate Associated Problem(s): Primary hypertension Please check blood pressure daily and record DASH diet Limit caffeine Take medication as directed Contact office if chest pain, pressure, dizziness, shortness of breath, swelling legs Recommend slow position changes Current med: losartan documented in this encounter [facility] 06-20-2025 Instructions Melissa Moeller NP - 06/20/2025 9:00 AM EDT You have type 2 diabetes: at this point I would like to give you 3 months to try to change diet : cut back on sugary drinks/foods, as well as carbohydrates (bread, pasta, potatoes), I would also like you to cut back on alcohol consumption as well, and exercise 5 times weekly about 30 minutes each Urine: I will order culture for urine and have you take antibiotic as well Elevated PSA: we will recheck PSA level in 1 month documented in this encounter [facility] 12-04-2024 History of Presen t illness Narrative [...] Orders Lipid panel documented in this encounter [facility] 12-04-2024 Instructions Loretta Jones NP - 12/04/2024 3:30 PM EST Contact Dermatology- have allergy testing done as directed by them. FASTING labs ordered. Nothing to eat or drink for 12 hours prior to blood draw. Water and black coffee ok. documented in this encounter [facility] 10-11-2024 Telephone encounter Note Sent to [facility] accident please [facility] to [facility]! Thanks you! [facility] 10-11-2024 Miscellaneous Notes [facility]! Thanks you! documented in this encounter [facility] 10-09-2024 Telephone encounter Note Pt is now coming in 12/04/2024 Needs a refill on his Cozaar [facility] 10-09-2024 Miscellaneous Notes Pt is now coming in 12/04/2024 Needs a refill on his Cozaar documented in this encounter [facility] 08-14-2024 History of Presen t illness Narrative [...] develop for requiring urgent evaluation. Merced Mccall APRN-SECURITY INCIDENT HANDLER documented in this encounter [facility] 08-09-2024 History of Presen t illness Narrative [...] develop for requiring urgent evaluation. Merced Mccall APRN-SECURITY INCIDENT HANDLER documented in this encounter [facility] 07-26-2024 Telephone encounter Note Patient needs post op pain meds [facility] 07-26-2024 Miscellaneous Notes Patient needs post op pain meds documented in this encounter [facility] 07-26-2024 Telephone encounter Note Needs post op pain meds [facility] 07-26-2024 Miscellaneous Notes Needs post op pain meds documented in this encounter [facility] 07-26-2024 Telephone encounter Note Post op pain rx. PDMP reviewed [facility] 07-26-2024 Miscellaneous Notes Post op pain rx. PDMP reviewed documented in this encounter [facility] 07-25-2024 Telephone encounter Note Noted per Valentin he has crutches / walker at home. [facility] 07-25-2024 Miscellaneous Notes Noted per Valentin he has crutches / walker at home. documented in this encounter [facility] 07-18-2024 History of Presen t illness Narrative [...] surgery scheduled. (R) KNEE SCOPE 07/27 @LIZ SX INSTRUCTIONS GIVEN TODAY 07/18 @3PM - [place] HAS WALKER / CRUTCHES AT HOME Follow up for 08/09 @10AM W/MERCED IN [place]. documented in this encounter [facility] Healthcare Evaluation + Plan note No data available for this section [facility] Evaluation note Diagnosis Chronic pain of left knee- Primary documented in this encounter [facility] HealthcareEvaluation note* Diagnosis Chronic pain of left knee- Primary documented in this encounter [facility] HealthcareEvaluation note* Diagnosis Blood pressure elevated without [...] with routine healing documented in this encounter [facility] HealthcareEvaluation note* Diagnosis Blood pressure elevated without [...] for lipoid disorders documented in this encounter [facility] HealthcareEvaluation note* Diagnosis Blood pressure elevated without [...] Other chronic sinusitis documented in this encounter [facility] HealthcareEvaluation note* Diagnosis Blood pressure elevated without [...] neoplasm of prostate documented in this encounter [facility] HealthcareEvaluation note* Diagnosis Blood pressure elevated without [...] finger of right hand, unspecified finger Primary hypertension- Primary Unspecified essential hypertension Rash Rash and other nonspecific skin eruption Acute pain of right knee- Primary Acute pain of right knee- Primary Primary hypertension- Primary Unspecified essential hypertension Yeast dermatitis Primary hypertension- Primary Unspecified essential hypertension Elevated random blood glucose level Screening for hyperlipidemia Screening for lipoid disorders Elevated PSA, less than 10 ng/ml- Primary documented in this encounter [facility] HealthcareEvaluation note* Diagnosis Blood pressure elevated without [...] finger of right hand, unspecified finger Primary hypertension- Primary Unspecified essential hypertension Rash Rash and other nonspecific skin eruption Acute pain of right knee- Primary Acute pain of right knee- Primary Primary hypertension- Primary Unspecified essential hypertension Yeast dermatitis Primary hypertension- Primary Unspecified essential hypertension Elevated random blood glucose level Screening for hyperlipidemia Screening for lipoid disorders Elevated random blood glucose level- Primary [facility] [...] finger of right hand, unspecified finger Primary hypertension- Primary Unspecified essential hypertension Rash Rash and other nonspecific skin eruption Acute pain of right knee- Primary Acute pain of right knee- Primary Primary hypertension- Primary Unspecified essential hypertension Yeast dermatitis Primary hypertension- Primary Unspecified essential hypertension Elevated random blood glucose level Screening for hyperlipidemia Screening for lipoid disorders Type 2 diabetes mellitus without complication, without [...] deficiency anemia type documented in this encounter [facility] HealthcareHistory of Present illness Narrative* Franklyn Bourne MD - 08/15/2024 9:50 AM EDT [...] budesonide ordupixent if recurs [facility] No data available for this section [facility] No data available for this section [facility] Summary Purpose Family History No Family History [...] and content) DATE CREATED AUTHOR 07/29/2022 [facility] DATE CREATED AUTHOR AUTHOR'S ORGANIZ ATION 04/04/2024 [facility] DATE CREATED AUTHOR AUTHOR'S ORGANIZ ATION 06/29/2024 [facility] DATE CREATED AUTHOR AUTHOR'S ORGANIZ ATION 12/10/2024 [facility] dical Specialists [facility] Care Teams (unrecognized sec tion and content) Citizen Participation Specialist Relationship Specialty Start Date End Date Leroy Barba MD PCP - General Family Medicine 11/19/23 Citizen Participation Specialist Relationship Specialty Start Date End Date Leroy Barba MD PCP - General Family Medicine 11/19/23 Citizen Participation Specialist Relationship Specialty Start Date End Date Leroy Barba MD PCP - General Family Medicine 11/19/23 Citizen Participation Specialist Relationship Specialty Start Date End Date Leroy Barba MD PCP - General Family Medicine 11/19/23 Citizen Participation Specialist Relationship Specialty Start Date End Date Leroy Barba MD [address] [place] [address] PCP - General Family Medicine 02/22/24 Shaikh Hudson MD [address] [place] [address] PCP - Medical [employer] 07/30/15 11/28/99 Loretta Jones NP [address] [place] [address] Nurse Practitioner Family Medicine 06/28/24 Citizen Participation Specialist Relationship Specialty Start Date End Date Leroy Barba MD [address] [place] [address] PCP - General Family Medicine 02/22/24 Shaikh Hudson MD [address] [place] [address] PCP - Medical [employer] 07/30/15 11/28/99 Loretta Jones NP [address] [place] [address] Nurse Practitioner Family Medicine 06/28/24 Citizen Participation Specialist Relationship Specialty Start Date End Date Leroy Barba MD [address] [place] [address] PCP - General Family Medicine 02/22/24 Shaikh Hudson MD [address] [place] [address] PCP - Medical [employer] 07/30/15 11/28/99 Loretta Jones, THOM [address] [place] [address] Nurse Practitioner Family Medicine 06/28/24 Citizen Participation Specialist Relationship Specialty Start Date End Date Leroy Barba MD [address] [place] [address] PCP - General Family Medicine 02/22/24 Shaikh Hudson MD [address] [place] [address] PCP - Medical [employer] 07/30/15 11/28/99 Loretta Jones NP [address] [place] [address] Nurse Practitioner Family Medicine 06/28/24 Citizen Participation Specialist Relationship Specialty Start Date End Date Leroy Barba MD [address] [place] [address] PCP - General Family Medicine 02/22/24 Shaikh Hudson MD [address] [place] [address] PCP - Medical [employer] 07/30/15 11/28/99 Loretta Jones NP [address] [place] [address] Nurse Practitioner Family Medicine 06/28/24 Citizen Participation Specialist Relationship Specialty Start Date End Date Leroy Barba MD [address] [place] [address] PCP - General Family Medicine 02/22/24 Shaikh Hudson MD [address] [place] [address] PCP - Medical [employer] 07/30/15 11/28/99 Loretta Jones NP [address] [place] [address] Nurse Practitioner Family Medicine 06/28/24 Citizen Participation Specialist Relationship Specialty Start Date End Date Leroy Barba MD [address] [place] [address] PCP - General Family Medicine 02/22/24 Shaikh Hudson MD [address] [place] [address] PCP - Medical [employer] 07/30/15 11/28/99 Loretta Jones NP [address] [place] [address] Nurse Practitioner Family Medicine 06/28/24 Citizen Participation Specialist Relationship Specialty Start Date End Date Leroy Barba MD [address] [place] [address] PCP - General Family Medicine 02/22/24 Shaikh Hudson MD [address] [place] [address] PCP - Medical [employer] 07/30/15 11/28/99 Loretta Jones NP [address] [place] [address] Nurse Practitioner Family Medicine 06/28/24 Citizen Participation Specialist Relationship Specialty Start Date End Date Leroy Barba MD [address] [place] [address] PCP - General Family Medicine 02/22/24 Shaikh Hudson MD [address] [place] [address] PCP - Medical [employer] 07/30/15 11/28/99 Loretta Jones NP [address] [place] [address] Nurse Practitioner Family Medicine 06/28/24 Citizen Participation Specialist Relationship Specialty Start Date End Date Leroy Barba MD [address] [place] [address] PCP - General Family Medicine 02/22/24 Shaikh Hudson MD [address] [place] [address] PCP - Medical [employer] 07/30/15 11/28/99 Loretta Jones NP [address] [place] [address] Nurse Practitioner Family Medicine 06/28/24 Citizen Participation Specialist Relationship Specialty Start Date End Date Leroy Barba MD [address] [place] [address] PCP - General Family Medicine 02/22/24 Shaikh Hudson MD [address] [place] [address] PCP - Medical [employer] 07/30/15 11/28/99 Loretta Jones NP [address] [place] [address] Nurse Practitioner Family Medicine 06/28/24 Citizen Participation Specialist Relationship Specialty Start Date End Date Leroy Barba MD [address] [place] [address] PCP - General Family Medicine 02/22/24 Shaikh Hudson MD [address] [place] [address] PCP - Medical [employer] 07/30/15 11/28/99 Loretta Jones NP [address] [place] [address] Nurse Practitioner Family Medicine 06/28/24 Citizen Participation Specialist Relationship Specialty Start Date End Date Leroy Barba MD [address] [place] [address] PCP - General Family Medicine 02/22/24 Shaikh Hudson MD [address] [place] [address] PCP - Medical [employer] 07/30/15 11/28/99 Loretta Jones, THOM [address] [place] [address] Nurse Practitioner Family Medicine 06/28/24 Citizen Participation Specialist Relationship Specialty Start Date End Date Leroy Barba MD [address] [place] [address] PCP - General Family Medicine 02/22/24 Shaikh Hudson MD [address] [place] [address] PCP - Medical [employer] 07/30/15 11/28/99 Loretta Jones NP [address] [place] [address] Nurse Practitioner Family Medicine 06/28/24 Reason for Visit (unrecogniz ed section and content) Specialty Diagnoses / Procedures Referred By Contac t Referred To Contact Physical Therapy Diagnoses Pain in left knee Other chronic pain Procedures DE PHYSICAL THERAPY EVALUATION HIGH COMPLEX 45 MINS Shaikh Hudson MD [address] [place] [address] Kori Rubio, PT [address] [place] [address] Referral ID Status Reason Start Date Expiration Date V isits Requested Visits Authorized [id number] Authorized 12/20/2023 06/17/2024 20 20 Reason Onset [...] Reason Comments Post-op Reason Comments Med Refill Reason Comments Hypertension FOR RECORDS PERTAINING TO PATIENTS WHO ARE [...] BE BASED ON THE PRIMARY CLINICAL RECORDS. [facility] [employer] provides no warranty or guarantee of the accuracy or completeness of information in this document.
[2025-06-20 12:33] LABS: Iron 67.0 ug/dL (65.0-175.0); Percent Iron Saturation 17.2 %; Total Iron Binding Capacity 390.0 ug/dL (250.0-450.0)
[2025-06-20 12:44] LABS: Glucose Urine UA NEGATIVE (NEGATIVE)
[2025-06-20 13:33] LABS: Crystals Seen? Seen #/HPF (None Seen)
[2025-06-20 13:35] LABS: Cast Seen? NONE SEEN #/LPF (NONE SEEN)
[2025-06-21 06:08] LABS: Vitamin B12 534 pg/mL (232-1245)
[2025-06-21 08:09] LABS: Transferrin 311 mg/dL (177-329)
== END 2025-06-20 10:43 | disposition home or self-care (01) ==
LOC: LAB 10:45
PROVIDERS: PCP Nurse Practitioner; Visit Provider Nurse Practitioner
DX: R30.0 Dysuria (principal); D50.9 Iron deficiency anemia, unspecified; I10 Essential (primary) hypertension; E66.811 Obesity, class 1; Z68.33 Body mass index [BMI] 33.0-33.9, adult; E66.09 Other obesity due to excess calories; E55.9 Vitamin D deficiency, unspecified; Z12.5 Encounter for screening for malignant neoplasm of prostate
CPT/HCPCS: 36415; 81001; 82607; 82728; 83540; 83550; 84466; 87086

== ENCOUNTER 2025-08-18 07:02 | Outpatient (OUT) | payer OTHER, SELFPAY ==
--- OUTSIDE RECORDS SUMMARY | 2025-08-18 07:07 | XMS_ITS | CCD ---
Author Organization [facility] Care Team Providers Care Respite Coordinator Name Role Phone DR LEROY BARBA Attending Unavailable FREDA, DR LEROY Krishnan Consulting Unavailable FREDA, DR LEROY Krishnan Primary Care Unavailable FREDA, DR LEORY Krishnan Admitting Unavailable Freda LUI, Leroy Primary Care Provider [phone] SHAIKH HUDSON Primary Care Physician Maren Bourne Referring Unavailable Maren Bourne Attending Unavailable Maren Bourne Admitting Unavailable SHAIKH HUDSON Referring Unavailable LEROY BARBA Primary Care Unavailable Leroy Barba MD Primary Care Provider Shaikh Hudson MD Unavailable Robert OFFICE RECEPTIONIST, Shayna Unavailable [phone] Robert OFFICE RECEPTIONIST, Shayna Unavailable Melissa Moeller Attending Provider [phone] MELISSA MOELLER Attending Unavailable MAREN BOURNE Attending Unavailable JR. WHYTE GEORGE C Attending SHAYNA Rebolledo Attending UnavailELLA Harris Attending Unavailable MERCED MCCALL Attending Unavailable MERCED MCCALL Attending Unavailable MAREN BOURNE Attending Unavailable SHAYNA JONES Referring SHAYNA Pham Attending Melissa Joe Attending Unavailable Melissa Moeller Admitting Unavailable Medications Current Medications Medication Drug Class(es) Dates Sig (Normalized) Sig (Original) acetaminophen 325 mg / HYDROcodone bitartrate 5 mg oral tablet (3 sources) Opioid Agonist Start: 07-26-2024 End: 07-29-2024 take 1 tablet by mouth every six hours for pain HYDROcodone-acetami nophen (Lopez) 5-325 MG tablet Indications: Post-operative pain Take [...] days 30 g 2 07/11/2024 08/08/2024 Active ferrous sulfate 325 mg delayed release oral tablet (1 source) Start: 06-21-2025 End: 07-21-2025 take 1 tablet by mouth at mealtime ferrous sulfate (Fe Tabs) 325 (65 Fe) MG EC tablet Indications: Iron deficiency anemia, unspecified iron deficiency anemia type Take 1 tablet (325 mg) by mouth in the morning. Take with meals. Do not crush, chew, or split. 30 tablet 1 06/21/2025 07/21/2025 Active fluticasone propionate 0.05 mg/actuat metered dose [...] (20 sources) Angiotensin 2 Receptor Nas Start: 05-01-2025 End: 07-30-2025 take 1 tablet by mouth once daily losartan (Cozaar) 100 MG tablet Indications: Primary hypertension Take 1 tablet (100 mg) by mouth Daily 90 tablet 1 07/23/2025 Active Start: 05-22-2024 End: 04-09-2025 take 1 [...] Antifungal Start: 11-24-2023 End: 02-22-2024 nystatin (Mycostatin) [id number] UNIT/GM powder Indications: Rash Apply topically 3 (three) times a day 60 g 2 11/24/2023 02/22/2024 Active predniSONE 10 mg oral tablet (16 sources) Start: 07-10-2024 End: 08-15-2024 predniSONE (Deltasone) 10 MG tablet 07/10/2024 08/15/2024 Discontinued (Therapy completed) sulfamethoxazole 800 mg / trimethoprim 160 mg oral tablet (5 sources) Dihydrofolate Reductase Inhibitor Antibacterial, Sulfonamide Antimicrobial Start: 06-20-2025 End: 06-30-2025 take 1 tablet by mouth once sulfamethoxazole- trimethoprim (Bactrim DS) 800-160 MG per tablet Indications: Dysuria Take 1 tablet by mouth every 12 (twelve) hours for 10 days 20 tablet 06/20/2025 06/30/2025 Active Problems Active Problems Problem Classification Problem Date Documented Date Episodic/Chronic Deficiency and other anemia (9 sources) Iron deficiency anemia; Translations: [Iron deficiency anemia, unspecified] Onset: 06-20-2025 06-20-2025 Episodic Diabetes mellitus without complication (8 sources) Type 2 diabetes mellitus; Translations: [Type 2 diabetes mellitus without complications] Onset: 06-20-2025 06-20-2025 Chronic Essential hypertension (20 sources) Essential hypertension; Translations: [Essential (primary) hypertension] Onset: 11-23-2023 10-09-2024 Chronic Genitourinary symptoms and ill-defined conditions (8 sources) Dysuria; Translations: [Dysuria] Onset: 06-20-2025 06-20-2025 [...] Episodic Other nutritional; endocrine; and metabolic disorders (14 sources) Obesity caused by energy imbalance; Translations: [...] Documented Date Episodic/Chronic Diabetes mellitus without complication (20 sources) High glucose level in blood; Translations: [Hyperglycemia, unspecified] Onset: 12-04-2024 Resolved: 06-20-2025 12-04-2024 Episodic Fracture of lower limb (20 [...] Interpretation and review of laboratory results Abnormal [facility] - Hematology and Cell countson 06-20-2025 HbA1c (Bld) [Mass fraction] 7.1 % [facility] METRO IRON AND TIBCon 2024 TBH IRON 67 ug/dL 65.0 - 175.0 ug/dL [facility] TB PERCENT IRON SATURATION 17.2 % [facility] TB TOTAL IRON BINDING CAPACITY 390 ug/dL 250.0 - 450.0 ug/dL [facility] Urine Cultureon 06-20-2025 Bacteria identified Cx Nom (U) <9,000 colonies/ml mixed bacterial skin contaminants 2 Days PERFORMED BY: [facility] [address] [place] [address] PATHOLOGIST STAKING ENGINEER ALAN ADAMS M.D. Normal [facility] Comment on above: Performed By: #### C UU #### [facility] [address] ALL CBC WITH AUTO DIFFon BASOPHILS ABSOLUTE AUTO 0 [facility] Basophils/100 WBC (Bld) 0.4 % 0.2 - 2.0 % [facility] Eosinophils/100 WBC (Bld) 3 % 0.9 - 7.0 % [facility] Erythrocyte distribution width (RBC) [Ratio] 12.7 % 11.0 - 15.0 % [facility] Hematocrit (Bld) [Volume fraction] 37.8 % Low 42.0 - 54.0 % [facility] Hemoglobin (Bld) [Mass/Vol] 12.9 g/dL Low 14.0 - 18.0 g/dL [facility] IMMATURE GRANULOCYTES ABS AUTO 0.02 [facility] Immature granulocytes/100 WBC (Bld) 0.3 % 0.0 - 0.5 % [facility] Interpretation and review of laboratory results Abnormal [facility] LYMPHOCYTES ABSOLUTE AUTO 2.3 [facility] Lymphocytes/100 WBC (Bld) 29.2 % 20.5 - 60.0 % [facility] MCH (RBC) [Entitic mass] 31.4 pg 25.9 - 34.0 pg [facility] MCHC (RBC) [Mass/Vol] 34.1 g/dL 29.9 - 35.2 g/dL [facility] MCV (RBC) [Entitic vol] 92 fL 80.0 - 94.0 fL [facility] MONOCYTES ABSOLUTE AUTO 0.6 [facility] Monocytes/100 WBC (Bld) 7.7 % 1.7 - 12.0 % [facility] NEUTROPHILS ABSOLUTE AUTO 4.6 [facility] Neutrophils/100 WBC (Bld) 59.4 % 43.0 - 75.0 % [facility] Platelet mean volume (Bld) [Entitic vol] 8.6 fL Low 9.5 - 13.5 fL [facility] TB[facility] EO # 0.2 [facility] PLT 357 [facility] RBC 4.11 Low [facility] WBC 7.7 [facility] MR KNEE RT WO CONTon [...] Snell MD on 06/28/2024 2:20 PM Normal [facility] CT Maxillofacial w/o Contras ton 04-03-2024 [...] Kade Coreas DO Transcribed by: ELSY Technologist: [facility] Consent for Treatmenton Consent for Treatment [id number] #1.00TIFF [facility] Physician Orderon 03-28-2024 Physician Order [id number] #1.00TIFF [facility] VIT D 25-OH LABCORPon 2021 Vitamin D, 25-Hydroxy 35.2 ng/mL Normal 30.0-100.0 [facility] Comment on above: Result Comment: Barbara min D deficiency has been defined by the [place] [employer] and an Endocrine Society practice guideline as a level of serum 25-OH vitamin D less than 20 ng/mL (1,2). The Endocrine Society went on to further define vitamin D insufficiency as a level between 21 and 29 ng/mL (2). 1. IOM ([place] of [employer]). 2010. Dietary reference intakes for calcium and D. [place]: The National Academies Press. 2. Gayle MF, Didier ARROYO, Jaky BERGERON, et al. Evaluation, treatment, and prevention of vitamin D deficiency: an Endocrine Society clinical practice guideline. JCEM. 2010; 96(7):1911-30. Performed By: #### V ITADLC #### [facility] [address] [place] [address] Dr. Gasper Vega CBC AUTO DIFFon 07-27-2022 BASO # 0.0 103/ul Normal 0.0-0.1 [facility] Comment on above: Performed By: #### C BC #### [facility] [address] [place] [address] Dr. Gasper Vega Basophils/100 WBC (Bld) 0.4 % Normal 0.2-2.0 [facility] Comment on above: Performed By: #### C BC #### [facility] [address] [place] [address] Dr. Gasper Vega EO # 0.3 103/ul Normal 0.0-0.7 [facility] Comment on above: Performed By: #### C BC #### [facility] [address] [place] [address] Dr. Gasper Vega Eosinophils/100 WBC (Bld) 3.1 % Normal 0.9-7.0 [facility] Comment on above: Performed By: #### C BC #### [facility] [address] [place] [address] Dr. Gasper Vega Erythrocyte distribution width (RBC) [Ratio] 13.0 % Normal 11.0-15.0 [facility] Comment on above: Performed By: #### C BC #### [facility] [address] [place] [address] Dr. Gasper Vega Hematocrit (Bld) [Volume fraction] 39.4 % Critically low 42.0-54.0 [facility] Comment on above: Performed By: #### C BC #### [facility] [address] [place] [address] Dr. Gasper Vega Hemoglobin (Bld) [Mass/Vol] 13.2 g/dL Critically low 14.0-18.0 [facility] Comment on above: Performed By: #### C BC #### [facility] [address] [place] [address] Dr. Gasper Vega IG # 0.02 10e3/ul Normal 0.00-0.03 [facility] Comment on above: Performed By: #### C BC #### [facility] [address] [place] [address] Dr. Gasper Vega IG % 0.2 % Normal 0.0-0.5 [facility] Comment on above: Performed By: #### C BC #### [facility] [address] [place] [address] Dr. Gasper Vega LYMPH # 1.9 103/ul Normal 1.2-3.8 [facility] Comment on above: Performed By: #### C BC #### [facility] [address] [place] [address] Dr. Gasper Vega Lymphocytes/100 WBC (Bld) 22.7 % Normal 20.5-60.0 [facility] Comment on above: Performed By: #### C BC #### [facility] [address] [place] [address] Dr. Gasper Vega MANUAL DIFF REQ NO Normal [facility] Comment on above: Performed By: #### C BC #### [facility] [address] [place] [address] Dr. Gasper Vega MCH (RBC) [Entitic mass] 30.7 pg Normal 25.9-34.0 [facility] Comment on above: Performed By: #### C BC #### [facility] [address] [place] [address] Dr. Gasper Vega MCHC (RBC) [Mass/Vol] 33.5 g/dL Normal 29.9-35.2 [facility] Comment on above: Performed By: #### C BC #### [facility] [address] [place] [address] Dr. Gasper Vega MCV (RBC) [Entitic vol] 91.6 fL Normal 80.0-94.0 [facility] Comment on above: Performed By: #### C BC #### [facility] [address] [place] [address] Dr. Gasper Vega MONO # 0.9 103/ul Critically high 0.3-0.8 [facility] Comment on above: Performed By: #### C BC #### [facility] [address] [place] [address] Dr. Gasper Vega Monocytes/100 WBC (Bld) 10.9 % Normal 1.7-12.0 [facility] Comment on above: Performed By: #### C BC #### [facility] [address] [place] [address] Dr. Gasper Vega NEUT # 5.3 103/ul Normal 1.4-6.5 [facility] Comment on above: Performed By: #### C BC #### [facility] [address] [place] [address] Dr. Gasper Vega Neutrophils/100 WBC (Bld) 62.7 % Normal 43.0-75.0 [facility] Comment on above: Performed By: #### C BC #### [facility] [address] [place] [address] Dr. Gasper Vega Platelet mean volume (Bld) [Entitic vol] 8.5 fL Critically low 9.5-13.5 [facility] Comment on above: Performed By: #### C BC #### [facility] [address] [place] [address] Dr. Gasper Vega PLT 286 103/ul Normal 150-450 [facility] Comment on above: Performed By: #### C BC #### [facility] [address] [place] [address] Dr. Gasper Vega RBC 4.30 106/ul Critically low 4.70-6.10 [facility] Comment on above: Performed By: #### C BC #### [facility] [address] [place] [address] Dr. Gasper Vega WBC 8.4 103/ul Normal 4.0-11.0 [facility] Comment on above: Performed By: #### C BC #### [facility] [address] [place] [address] Dr. Gasper Vega DIRECT LDLon 07-27-2022 Cholesterol in LDL [Mass/Vol] 93 mg/dL Normal [facility] Comment on above: Performed By: #### L IPID, BMP, LIVER, DLDL, TSH #### [facility] [address] [address] [address] Gasper Vega DLDL NORMAL SEE BELOW Normal [facility] Comment on above: Result Comment: <100 mg/dl OPTIMAL 100 - 129 mg/dl NEAR OR ABOVE OPTIMAL 130 - 159 mg/dl BORDERLINE HIGH 160 - 189 mg/dl HIGH >190 mg/dl VERY HIGH Performed By: #### L IPID, BMP, LIVER, DLDL, TSH #### [facility] [address] [place] [address] Dr. Gasper Vega GLYCOHEMOGLOBIN A1Con 2021 ADA RECOMMENDATION SEE BELOW Normal [facility] Comment on above: Result Comment: ADA RECOMMENDED LIMIT 4.0 - 6.0 ADA THERAPEUTIC TARGET < 7.0 ACTION SUGGESTED > 7.0 Performed By: #### A 1C #### [facility] [address] [place] [address] Dr. Gasper Vega Glucose [Mass/Vol] 137 mg/dL Normal [facility] Comment on above: Performed By: #### A 1C #### [facility] [address] [place] [address] Dr. Gasper Vega HbA1c (Bld) [Mass fraction] 6.4 % Critically high 4.5-6.2 [facility] Comment on above: Performed By: #### A 1C #### [facility] [address] [place] [address] Dr. Gasper Vega LIPID PROFILEon 07-27-2022 CHOL-HDL RATIO NORM SEE BELOW Normal [facility] Comment on above: Result Comment: 3.3 - 4.4 LOW RISK 4.4 - 7.1 AVERAGE RISK 7.1 - 11.0 MODERATE RISK >11.0 HIGH RISK Performed By: #### L IPID, BMP, LIVER, DLDL, TSH #### [facility] [address] [address] [address] Gasper Vega Cholesterol [Mass/Vol] 187 mg/dL Normal <=200 [facility] Comment on above: Performed By: #### L IPID, BMP, LIVER, DLDL, TSH #### [facility] [address] [address] [address] Gasper Vega Cholesterol in HDL [Mass/Vol] 30 mg/dL Critically low 40-60 [facility] Comment on above: Performed By: #### L IPID, BMP, LIVER, DLDL, TSH #### [facility] [address] [address] [address] Gasper Vega Cholesterol.total/Ch olesterol in HDL [Mass ratio] 6.2 {ratio} Normal [facility] Comment on above: Performed By: #### L IPID, BMP, LIVER, DLDL, TSH #### [facility] [address] [address] [address] Gasper Vega HDL NORMAL > or = 60 mg/dl - LOW CARDIOVASCULAR RISK <40 mg/dl - HIGH CARDIOVASCULAR RISK Normal [facility] Comment on above: Performed By: #### L IPID, BMP, LIVER, DLDL, TSH #### [facility] [address] [address] [address] Gasper Vega Triglyceride [Mass/Vol] 405 mg/dL Critically high <=150 [facility] Comment on above: Performed By: #### L IPID, BMP, LIVER, DLDL, TSH #### [facility] [address] [address] [address] Gasper Vega VLDL CALC 81.0 mg/dL Normal [facility] Comment on above: Performed By: #### L IPID, BMP, LIVER, DLDL, TSH #### [facility] [address] [address] [address] Gasper Vega LIVER PROFILEon 07-27-2022 Albumin [Mass/Vol] 3.8 g/dL Normal 3.4-5.0 [facility] Comment on above: Performed By: #### L IPID, BMP, LIVER, DLDL, TSH #### [facility] [address] [address] [address] Gasper Vega Albumin/Globulin [Mass ratio] 1.2 {ratio} Normal [facility] Comment on above: Performed By: #### L IPID, BMP, LIVER, DLDL, TSH #### [facility] [address] [place] [address] Dr. Gasper Vega ALP [Catalytic activity/Vol] 76 U/L Normal 46-116 [facility] Comment on above: Performed By: #### L IPID, BMP, LIVER, DLDL, TSH #### [facility] [address] [place] [address] Dr. Gasper Vega ALT [Catalytic activity/Vol] 50 U/L Normal 16-63 [facility] Comment on above: Performed By: #### L IPID, BMP, LIVER, DLDL, TSH #### [facility] [address] [place] [address] Dr. Gasper Vega AST [Catalytic activity/Vol] 21 U/L Normal 15-37 [facility] Comment on above: Performed By: #### L IPID, BMP, LIVER, DLDL, TSH #### [facility] [address] [place] [address] Dr. Gasper Vega BILI, CONJUGATED 0.0 mg/dL Normal 0.0-0.2 [facility] Comment on above: Performed By: #### L IPID, BMP, LIVER, DLDL, TSH #### [facility] [address] [place] [address] Dr. Gasper Vega Bilirubin [Mass/Vol] 0.3 mg/dL Normal 0.2-1.0 [facility] Comment on above: Performed By: #### L IPID, BMP, LIVER, DLDL, TSH #### [facility] [address] [place] [address] Dr. Gasper Vega Globulin (S) [Mass/Vol] 3.3 g/dL Normal [facility] Comment on above: Performed By: #### L IPID, BMP, LIVER, DLDL, TSH #### [facility] [address] [address] [address] Gasper Vega Protein [Mass/Vol] 7.1 g/dL Normal 6.4-8.2 [facility] Comment on above: Performed By: #### L IPID, BMP, LIVER, DLDL, TSH #### [facility] [address] [place] [address] Dr. Gasper Vega PROF CHEM 8 (BAS METB)on Anion gap [Moles/Vol] 15.2 mmol/L Normal [facility] Comment on above: Performed By: #### L IPID, BMP, LIVER, DLDL, TSH #### [facility] [address] [place] [address] Dr. Gasper Vega Calcium [Mass/Vol] 8.9 mg/dL Normal 8.5-10.1 [facility] Comment on above: Performed By: #### L IPID, BMP, LIVER, DLDL, TSH #### [facility] [address] [place] [address] Dr. Gasper Vega Chloride [Moles/Vol] 104 mmol/L Normal 98-107 [facility] Comment on above: Performed By: #### L IPID, BMP, LIVER, DLDL, TSH #### [facility] [address] [place] [address] Dr. Gasper Vega CO2 [Moles/Vol] 24.9 mmol/L Normal 21.0-32.[address] [facility] Comment on above: Performed By: #### L IPID, BMP, LIVER, DLDL, TSH #### [facility] [address] [address] [address] Gasper Vega Creatinine [Mass/Vol] 0.79 mg/dL Normal 0.70-1.30 [facility] Comment on above: Performed By: #### L IPID, BMP, LIVER, DLDL, TSH #### [facility] [address] [place] [address] Dr. Gasper Vega EGFR-AF LIBERIAN >60 Normal >=[address] [facility] Comment on above: Performed By: #### L IPID, BMP, LIVER, DLDL, TSH #### [facility] [address] [address] [address] Gasper Vega EGFR-NON AF LIBERIAN >60 Normal >=60 [facility] Comment on above: Performed By: #### L IPID, BMP, LIVER, DLDL, TSH #### [facility] [address] [address] [address] Gasper Vega Glucose [Mass/Vol] 126 mg/dL Critically high 74-106 [facility] Comment on above: Performed By: #### L IPID, BMP, LIVER, DLDL, TSH #### [facility] [address] [address] [address] Gasper Vega Potassium [Moles/Vol] 4.1 mmol/L Normal 3.5-5.1 [facility] Comment on above: Performed By: #### L IPID, BMP, LIVER, DLDL, TSH #### [facility] [address] [address] [address] Gasper Vega Sodium [Moles/Vol] 140 mmol/L Normal 136-145 [facility] Comment on above: Performed By: #### L IPID, BMP, LIVER, DLDL, TSH #### [facility] [address] [address] [address] Gasper Vega Urea nitrogen [Mass/Vol] 14.0 mg/dL Normal 7.0-18.0 [facility] Comment on above: Performed By: #### L IPID, BMP, LIVER, DLDL, TSH #### [facility] [address] [place] [address] Dr. Gasper Vega Urea nitrogen/Creatinine [Mass ratio] 17.7 mg/mg Normal [facility] Comment on above: Performed By: #### L IPID, BMP, LIVER, DLDL, TSH #### [facility] [address] [place] [address] Dr. Gasper Vega TSHon 07-27-2022 TSH 0.913 uIU/mL Normal 0.358-3.740 [facility] Comment on above: Performed By: #### L IPID, BMP, LIVER, DLDL, TSH #### [facility] [address] [address] [address] Gasper Vega Vital Signs Date Time Vital Sign Value Performing Clinician Dale lamb 06-20-2025 09:05-0400 Body mass index (BMI) [Ratio] 32.75 kg/m2 Melissa Morenoradha OFFICE RECEPTIONIST Work Phone: [facility] 06-20-2025 09:05-0400 Body temperature 98.2 [degF] Melissa Morenoholz OFFICE RECEPTIONIST Work Phone: [facility] 06-20-2025 09:05-0400 Body weight 97.7 kg Melissa Morenoconcettaz OFFICE RECEPTIONIST Work Phone: [facility] 06-20-2025 09:05-0400 Diastolic blood pressure 82 mm[Hg] Melissa Morenoholz OFFICE RECEPTIONIST Work Phone: [facility] 06-20-2025 09:05-0400 Heart rate 76 /min Melissagary Morenoholz OFFICE RECEPTIONIST Work Phone: [facility] 06-20-2025 09:05-0400 Respiratory rate 18 /min Melissagary Morenoholz OFFICE RECEPTIONIST Work Phone: [facility] 06-20-2025 09:05-0400 SaO2% (BldA) [Mass fraction] 97 % Melissagary Marksz OFFICE RECEPTIONIST Work Phone: [facility] 06-20-2025 09:05-0400 Systolic blood pressure 132 mm[Hg] Melissa Morenoholz OFFICE RECEPTIONIST Work Phone: [facility] 12-04-2024 15:24-0500 Body height 172.7 cm Shayna Jones OFFICE RECEPTIONIST Work Phone: [facility] 12-04-2024 15:24-0500 Body mass index (BMI) [Ratio] 33.45 kg/m2 Shayna Jones OFFICE RECEPTIONIST Work Phone: [facility] [facility] 12-04-2024 15:24-0500 Body temperature 98.71 [degF] Shayna Jones OFFICE RECEPTIONIST Work Phone: [facility] 12-04-2024 15:24-0500 Body weight 99.79 kg Shayna Jones OFFICE RECEPTIONIST Work Phone: [facility] 12-04-2024 15:24-0500 Diastolic blood pressure 86 mm[Hg] Hsayna Jones OFFICE RECEPTIONIST Work Phone: [facility] 12-04-2024 15:24-0500 Heart rate 84 /min Shayna Jones OFFICE RECEPTIONIST Work Phone: [facility] 12-04-2024 15:24-0500 Respiratory rate 16 /min Shayna Jones OFFICE RECEPTIONIST Work Phone: [facility] 12-04-2024 15:24-0500 SaO2% (BldA) [Mass fraction] 98 % Shayna Jones OFFICE RECEPTIONIST Work Phone: [facility] 12-04-2024 15:24-0500 Systolic blood pressure 142 mm[Hg] Shayna Jones OFFICE RECEPTIONIST Work Phone: [facility] 08-15-2024 09:17-0400 Body height 175.3 cm Maren Bourne MD Work Phone: [facility] 08-15-2024 09:17-0400 Body mass index (BMI) [Ratio] 32.78 kg/m2 Maren Bourne MD Work Phone: [facility] 08-15-2024 09:17-0400 Body weight 100.7 kg Maren Bourne MD Work Phone: [facility] 08-15-2024 09:17-0400 Diastolic blood pressure 86 mm[Hg] Maren Bourne MD Work Phone: [facility] 08-15-2024 09:17-0400 Systolic blood pressure 141 mm[Hg] Maren Bourne MD Work Phone: [facility] 07-18-2024 14:13-0400 Body height 175.3 cm Ella SANDOVAL Work Phone: [facility] 07-18-2024 14: Body mass index (BMI) [Ratio] 32.05 kg/m2 Ella SANDOVAL Work Phone: [facility] 07-18-2024 14: Body weight 98.43 kg Ella SANDOVAL Work Phone: [facility] Encounters Encounter Date Encounter Type Care Provider Facility Start: 07-23-2025 End: 07-23-2025 Refill Melissa Sajan OFFICE RECEPTIONIST Work Phone: [facility] Comment on above: Primary hypertension Start: 06-21-2025 End: 06-21-2025 Refill Melissa Aicjuanitoz OFFICE RECEPTIONIST Work Phone: [facility] Comment on above: Iron deficiency anem ia, unspecified iron deficiency anemia type (Primary Dx) Start: 06-20-2025 End: 06-20-2025 Bamboo flowsheet Melissa Sajan OFFICE RECEPTIONIST Work Phone: [facility] Start: 06-20-2025 End: 06-21-2025 Bamboo flowsheet Melissa Aichconcettaz OFFICE RECEPTIONIST Work Phone: [facility] Start: 06-20-2025 End: 06-20-2025 Clinisync Result Encounter Melissa Sajan OFFICE RECEPTIONIST Work Phone: [facility] External Department Unsolicited Start: 06-20-2025 End: 06-21-2025 External Result Encounter Melissa Sajan OFFICE RECEPTIONIST Work Phone: [facility] External Department Unsolicited Start: 06-20-2025 End: 06-20-2025 Office outpatient visit 25 minutes Melissa Moeller OFFICE RECEPTIONIST Work Phone: [facility] Comment on above: Type 2 diabetes yuliana [...] anemia, unspecified iron deficiency anemia type Start: 06-20-2025 End: 06-20-2025 ambulatory MELISSA MORENORADHA Not Available Start: 06-20-2025 End: 06-20-2025 ambulatory Melissa Thorpe Sajan [facility] Work Phone: Start: 06-20-2025 End: 06-20-2025 Departed Referred Melissa J Sajan OFFICE RECEPTIONIST-C -[facility] Start: 06-18-2025 End: 06-18-2025 Clinisync Result Encounter Melissa Sajan OFFICE RECEPTIONIST Work Phone: [facility] Unsolicited Start: 06-18-2025 End: 06-18-2025 Clinisync Result Encounter Melissa Sajan OFFICE RECEPTIONIST Work Phone: [facility] Unsolicited Start: 06-18-2025 End: 06-18-2025 Orders Only Melissa Sajan OFFICE RECEPTIONIST Work Phone: [facility] Comment on above: Elevated PSA, less t merritt 10 ng/ml (Primary Dx) Elevated random bloo d glucose level (Primary Dx) Start: 05-01-2025 End: 05-01-2025 Orders Only Melissa Sajan OFFICE RECEPTIONIST Work Phone: [facility] Comment on [...] 12-04-2024 Office outpatient visit 15 minutes Shayna Jones OFFICE RECEPTIONIST Work Phone: [facility] Comment on [...] Not Available Start: 08-14-2024 End: 08-14-2024 Bamboo flowscarlos alberto Mccall OFFICE RECEPTIONIST Work Phone: [facility] Start: 08-14-2024 End: 08-14-2024 Bamboo flowscarlos alberto Mccall OFFICE RECEPTIONIST Work Phone: [facility] Start: 08-14-2024 End: 08-14-2024 Postop follow up visit related to original px Merced Mccall OFFICE RECEPTIONIST Work Phone: [facility] Comment on above: Status post arthrosc opy of right knee (Primary Dx) Start: 08-14-2024 End: 08-14-2024 ambulatory MERCED MCCALL Not Available Start: 08-09-2024 End: 08-09-2024 Bamboo flowsheet Merced Mccall OFFICE RECEPTIONIST Work Phone: [facility] Start: 08-09-2024 End: 08-09-2024 Bamboo flowsheet Merced Mccall OFFICE RECEPTIONIST Work Phone: [facility] Start: 08-09-2024 End: 08-09-2024 ambulatory MERCED MCCALL Not Available Start: 08-09-2024 End: 08-09-2024 Postop follow up visit related to original px Merced Mccall OFFICE RECEPTIONIST Work Phone: [facility] Comment on above: Status post arthrosc opy of right knee (Primary Dx); Nondisplaced fracture of medial condyle of right femur, subsequent encounter for closed fracture with routine healing Start: 07-26-2024 End: 07-26-2024 Telephone encounter Justine Lana Whyte DO Work Phone: [facility] Comment on above: Post-operative pain (Primary Dx) Start: 07-25-2024 End: 07-25-2024 Telephone encounter Bill Patel PT Work Phone: [facility] Comment on above: re: Cancellation (Tr ied to contact re: cx of crutch-train / dispense that was scheduled 07/12 w/ upcoming sx on 07/27/24. I had to lm requesting a call to check status and to seek cx details.) Start: 07-18-2024 End: 07-18-2024 Patient encounter procedure Ella SANDOVAL Work Phone: [facility] Comment on above: Pre-op examination ( Primary Dx) Start: 07-18-2024 End: 07-18-2024 Preprocedural examination done Ella SANDOVAL Work Phone: [facility] Work Phone: Start: 07-18-2024 End: 07-18-2024 ambulatory ELLA OAKLEY Not Available Start: 07-18-2024 End: 07-18-2024 Bamboo flowsheet Ella SANDOVAL Work Phone: [facility] Start: 07-18-2024 End: 07-18-2024 Bamboo flowsheet Ella Oakley PA Work Phone: [facility] Start: 07-11-2024 End: 07-11-2024 ambulatory SHAYNA JONES Not Available Start: 07-10-2024 End: 07-10-2024 ambulatory JUSTINE MARIE Lana WHYTE Not Available Start: 07-05-2024 End: 07-05-2024 ambulatory MAREN BOURNE Not Available Start: 06-27-2024 End: 06-27-2024 ambulatory [facility] Start: 03-30-2024 End: 03-31-2024 ambulatory Maren Bourne Facility:[facility] Start: 03-30-2024 End: 03-30-2024 Patient encounter procedure Maren Bourne [facility] Start: 01-11-2024 End: 01-11-2024 ambulatory Celestina Morataya DAIRY POWDER MIXER OPERATOR Work Phone: [facility] Comment on above: Chronic pain of left knee (Primary Dx) Start: 01-11-2024 Bamboo flowsheet Celestina Wrig ht DAIRY POWDER MIXER OPERATOR Work Phone: [facility] Start: 01-11-2024 Bamboo flowsheet Celestina Wrig ht DAIRY POWDER MIXER OPERATOR Work Phone: [facility] Start: 01-06-2024 Bamboo flowsheet Miguel J Sprigg s PT Work Phone: [facility] Start: 01-06-2024 Bamboo flowsheet Miguel J Sprigg s PT Work Phone: [facility] Start: 01-06-2024 End: 01-06-2024 ambulatory Miguel J Franko PT Work Phone: [facility] Comment on above: Chronic pain of left knee (Primary Dx) Start: 07-28-2022 Encounter for genera l adult medical examination without abnormal findings DR LEROY BARBA [facility] Start: 07-27-2022 End: 07-28-[address] LEROY BARBA Facility:[facility] Start: 07-27-2022 End: 07-28-2022 Encounter for general adult medical examination without abnormal findings DR LEROY BARBA Facility:[facility] Procedures Date Procedure Procedure Detail Performing Clinician Start: 06-20-2025 [facility] Lis a Sajan OFFICE RECEPTIONIST Work Phone: Start: 06-20-2025 Hemoglobin glycosyla sonia a1c Melissa Selinaz OFFICE RECEPTIONIST Work Phone: Start: 06-20-2025 Culture bacterial quanttative colony count urine Melissa Elizabethhradha OFFICE RECEPTIONIST Work Phone: Start: 06-18-2025 ALL CBC WITH AUTO DIFF Melissa Sajan OFFICE RECEPTIONIST Work Phone: Start: 03-11-2023 Colonoscopy Ella varner PA Work Phone: Start: 07-27-[address] LEROY FOSTER Comment on above: Performed By: #### P [facility] #### [facility] [address] [place] [address] Dr. Gasper Vega Plan of Treatment Date Care Activity Detail Author Start: 03-11-2033 Screening for malign ant neoplasm of colon [facility] Start: 09-24-2025 End: 09-24-2025 Patient encounter procedure 09/24/2025 6:00 PM EDT Office Visit [facility] [address] [place] [phone] Melissa Moeller OFFICE RECEPTIONIST [address] [place] [phone] [facility] Start: 09-20-2025 Hemoglobin A1c measurement Diabetes: Hemoglobin A1C [facility] Start: 08-22-2025 End: 06-21-2026 CBC W Auto Differential panel - Blood CBC and differential Lab Routine Iron deficiency anemia, unspecified iron deficiency anemia type Expected: 08/22/2025 (Approximate), Expires: 06/21/2026 [facility] Work Phone: Comment on above: Expected: 08/22/2025 (Approximate), Expires: 06/21/2026 Start: 08-22-2025 End: 06-21-2026 Iron and Iron binding capacity panel - Serum or Plasma Iron level Lab Routine Iron deficiency anemia, unspecified iron deficiency anemia type Expected: 08/22/2025 (Approximate), Expires: 06/21/2026 [facility] Comment on above: Expected: 08/22/2025 (Approximate), Expires: 06/21/2026 Start: 07-30-2025 Influenza vaccination Influenza Vacc ine (#1) [facility] Start: 06-21-2025 End: 06-21-2025 Patient encounter procedure 06/21/2025 9:00 AM EDT Office Visit [facility] [address] [place] [address] Melissa Moeller NP [address] [place] [address] [facility] Start: 06-20-2025 End: 06-20-2026 Bacteria identified in Urine by Culture [facility] Work Phone: Comment on above: Expected: 06/20/2025 (Approximate), Expires: 06/20/2026 Start: 06-20-2025 End: 06-20-2026 Cobalamin (Vitamin B12) [Mass/volume] in Serum or Plasma Vitamin B12 Lab Routine Iron deficiency anemia, unspecified iron deficiency anemia type Expected: 06/20/2025 (Approximate), Expires: 06/20/2026 [facility] Comment on above: Expected: 06/20/2025 (Approximate), Expires: 06/20/2026 Start: 06-20-2025 End: 06-20-2026 Ferritin [Mass/volume] in Serum or Plasma Ferritin Lab Routine Iron deficiency anemia, unspecified iron deficiency anemia type Expected: 06/20/2025 (Approximate), Expires: 06/20/2026 [facility] Comment on above: Expected: 06/20/2025 (Approximate), Expires: 06/20/2026 Start: 06-20-2025 End: 06-20-2026 Iron + transferrin + TIBC Iron + transferrin + TIBC Lab Routine Iron deficiency anemia, unspecified iron deficiency anemia type Expected: 06/20/2025 (Approximate), Expires: 06/20/2026 [facility] Comment on above: Expected: 06/20/2025 (Approximate), Expires: 06/20/2026 Start: 06-20-2025 End: 06-20-2025 Patient encounter procedure [facility] Comment on above: Primary hypertension (Primary Dx); Elevated PSA, less than 10 ng/ml; Class 1 obesity due to excess calories with body mass index (BMI) of 33.0 to 33.9 in adult, unspecified whether serious comorbidity present Start: 06-20-2025 Urine culture [facility] Start: 06-18-2025 End: 06-18-2026 Hemoglobin A1c/Hemoglobin.total in Blood Hemoglobin A1c Lab Routine Elevated random blood glucose level Expected: 06/18/2025 (Approximate), Expires: 06/18/2026 [facility] Work Phone: Comment on above: Expected: 06/18/2025 (Approximate), Expires: 06/18/2026 Start: 06-18-2025 End: 06-18-2026 PSA, total and free PSA, total and free Lab Routine Elevated PSA, less than 10 ng/ml Expected: 06/18/2025 (Approximate), Expires: 06/18/2026 [facility] Work Phone: Comment on above: Expected: 06/18/2025 (Approximate), Expires: 06/18/2026 Start: 05-01-2025 End: 05-01-2026 25-hydroxyvitamin D3 [Mass/volume] in Serum or Plasma Vitamin D 25 hydroxy Lab Routine Vitamin D deficiency Expected: 05/01/2025 (Approximate), Expires: 05/01/2026 [facility] Comment on above: Expected: 05/01/2025 (Approximate), Expires: 05/01/2026 Start: 05-01-2025 End: 05-01-2026 CBC W Auto Differential panel - Blood CBC and differential Lab Routine Primary hypertension (CMS/HCC) Expected: 05/01/2025 (Approximate), Expires: 05/01/2026 [facility] Work Phone: Comment on above: Expected: 05/01/2025 (Approximate), Expires: 05/01/2026 Start: 05-01-2025 End: 05-01-2026 Comprehensive metabolic 2000 panel - Serum or Plasma Comprehensive metabolic panel Lab Routine Primary hypertension (CMS/HCC) Expected: 05/01/2025 (Approximate), Expires: 05/01/2026 [facility] Comment on above: Expected: 05/01/2025 (Approximate), Expires: 05/01/2026 Start: 05-01-2025 End: 05-01-2026 Lipid 1996 panel - Serum or Plasma Lipid panel Lab Routine Class 1 obesity due to excess calories with body mass index (BMI) of 33.0 to 33.9 in adult, unspecified whether serious comorbidity present Expected: 05/01/2025 (Approximate), Expires: 05/01/2026 [facility] Comment on above: Expected: 05/01/2025 (Approximate), Expires: 05/01/2026 Start: 05-01-2025 End: 05-01-2026 Microalbumin/Creatinine panel in random Urine Microalbumin / creatinine, urine ratio Lab Routine Primary hypertension (CMS/HCC) Expected: 05/01/2025 (Approximate), Expires: 05/01/2026 [facility] Comment on above: Expected: 05/01/2025 (Approximate), Expires: 05/01/2026 Start: 05-01-2025 End: 05-01-2026 Prostate specific Ag [Mass/volume] in Serum or Plasma PSA Lab Routine Screening PSA (prostate specific antigen) Expected: 05/01/2025 (Approximate), Expires: 05/01/2026 [facility] Comment on above: Expected: 05/01/2025 (Approximate), Expires: 05/01/2026 Start: 05-01-2025 End: 05-01-2026 Thyrotropin [Units/volume] in Serum or Plasma TSH Lab Routine Class 1 obesity due to excess calories with body mass index (BMI) of 33.0 to 33.9 in adult, unspecified whether serious comorbidity present Expected: 05/01/2025 (Approximate), Expires: 05/01/2026 [facility] Comment on above: Expected: 05/01/2025 (Approximate), Expires: 05/01/2026 Start: 05-01-2025 End: 05-01-2026 Urinalysis complete panel - Urine Urinalysis with reflex microscopic (clean catch) Lab Routine Primary hypertension ([facility]/HCC) Expected: 05/01/2025 (Approximate), Expires: 05/01/2026 [facility] Comment on above: Expected: 05/01/2025 (Approximate), Expires: 05/01/2026 Start: 12-04-2024 End: 12-04-2024 Patient encounter procedure 12/04/2024 3:30 PM EST Office Visit [facility] [address] [place] [address] Shayna Jones NP [address] [place] [address] [facility] Start: 12-04-2024 End: 12-04-2025 CBC W Auto Differential panel - Blood CBC and differential Lab Routine Primary hypertension ([facility]/HCC) Expected: 12/04/2024 (Approximate), Expires: 12/04/2025 [facility] Comment on above: Expected: 12/04/2024 (Approximate), Expires: 12/04/2025 Start: 12-04-2024 End: 12-04-2025 Comprehensive metabolic 2000 panel - Serum or Plasma Comprehensive metabolic panel Lab Routine Primary hypertension ([facility]/HCC) Expected: 12/04/2024 (Approximate), Expires: 12/04/2025 [facility] Comment on above: Expected: 12/04/2024 (Approximate), Expires: 12/04/2025 Start: 12-04-2024 End: 12-04-2025 Hemoglobin A1c/Hemoglobin.total in Blood Hemoglobin A1c Lab Routine Elevated random blood glucose level Expected: 12/04/2024 (Approximate), Expires: 12/04/2025 [facility] Comment on above: Expected: 12/04/2024 (Approximate), Expires: [...] Office Visit [facility] [address] [facility] [facility] [address] [place] [phone] Maren Bourne MD [address] [facility] [address] [place] [address] [facility] Start: 08-15-2024 End: 08-15-2024 Patient encounter procedure [facility] Comment on above: Arrived Start: 08-14-2024 End: 08-14-2024 Patient encounter procedure [facility] Comment on above: Arrived Start: 08-09-2024 End: 08-09-2024 Patient encounter procedure 08/09/2024 10:00 AM EDT Office Visit [facility] [address] [place] [phone] Merced Mccall, THOM [address] [place] [address] [facility] Start: 07-30-2024 Influenza vaccination Influenza Vacc ine (#1) [facility] Start: 07-27-2024 End: 07-27-2024 Patient encounter procedure 07/27/2024 12:45 PM EDT Procedure Visit [facility] Jr. Justine Whyte DO [address] [facility] [address] [place] [address] [facility] Start: 07-18-2024 End: 07-18-2024 Patient encounter procedure 07/18/2024 3:00 PM EDT Office Visit [facility] [address] [place] [phone] Ella Oakley PA [address] [facility] [address] [place] [address] Pre-op examination (Primary Dx) [facility] Comment on above: Pre-op examination ( Primary Dx) Start: 02-28-2024 End: 02-28-2024 Patient encounter procedure 02/28/2024 8:00 AM EDT Office Visit [facility] [address] [facility] [address] [place] [phone] Maren Bourne MD [address] [facility] [address] [place] [address] [facility] Start: 02-10-2024 End: 02-10-2024 ambulatory 02/10/2024 5:00 PM EDT Treatment [facility] [address] [place] [phone] Miguel Abdul, PT [address] [place] [address] [facility] Start: 02-08-2024 End: 02-08-2024 ambulatory 02/08/2024 5:00 PM EDT Treatment [facility] [address] [place] [phone] Celestina Morataya, DAIRY POWDER MIXER OPERATOR [address] [place] [address] [facility] Start: 02-03-2024 End: 02-03-2024 ambulatory 02/03/2024 5:00 PM EST Treatment [facility] [address] [place] [phone] Miguel Abdul, PT [address] [place] [address] [facility] Start: 02-01-2024 End: 02-01-2024 ambulatory 02/01/2024 5:00 PM EST Treatment [facility] [address] [place] [address] Miguel Abdul, PT [address] [place] [address] [facility] Start: 01-27-2024 End: 01-27-2024 ambulatory 01/27/2024 5:00 PM EST Treatment [facility] [address] [place] [phone] Celestina Morataya, DAIRY POWDER MIXER OPERATOR [address] [place] [address] [facility] Start: 01-25-2024 End: 01-25-2024 ambulatory 01/25/2024 5:00 PM EST Treatment [facility] [address] [place] [phone] Celestina Morataya, DAIRY POWDER MIXER OPERATOR [address] [place] [address] [facility] Start: 01-20-2024 End: 01-20-2024 ambulatory 01/20/2024 5:00 PM EST Treatment [facility] [address] [place] [phone] Celestina Morataya, DAIRY POWDER MIXER OPERATOR [address] [place] [address] [facility] Start: 01-18-2024 End: 01-18-2024 ambulatory [facility] Start: 01-17-2024 End: 01-17-2024 Patient encounter procedure 01/17/2024 10:00 AM EST Office Visit [facility] [address] [place] [address] Shaikh Hudson MD [address] [place] [address] [facility] Start: 01-14-2024 End: 01-14-2024 ambulatory 01/14/2024 9:00 AM EST Treatment [facility] [address] [place] [phone] Celestina Morataya, LATASHA [address] [place], [place] [phone] [facility] Start: 01-11-2024 End: 01-11-2024 ambulatory [facility] Comment on above: Arrived Start: 07-30-2023 Influenza vaccination Influenza Vacc ine (#1) [facility] Start: 1989 Urine screening for protein Diabetes: Urine Protein Screening [facility] Start: 1980 Glaucoma screening Diabetes: R etinopathy Screening [facility] Start: 1970 Screening for malign ant neoplasm of colon [facility] Immunizations Immunization Date Immunization Notes Care Provider [facility] 08-29-2024 influenza, seasonal, injectable Shayna Jones OFFICE RECEPTIONIST Work Phone: [facility] 08-29-2024 influenza virus vaccine, unspecified formulation Melissa Moeller OFFICE RECEPTIONIST Work Phone: [facility] Payers Date Payer Category Payer Self-pay 2024 Unknown [id number] 2016 Private Health Insurance [employer] [id number] 2016 Unknown [employer] [id number] 2016-Present [address] [place] [address] [id number] 1970 Unknown [id number] [id number] .[id number] 1970 Unknown [id number] [id number] .2.727 1970 Unknown [id number] [id number] .2.1286 1970 Unknown [id number] 2.16.840.1.276576.3.579 .2.9 1970 Unknown [id number] [id number] .2.9 1970 Unknown [id number] 2.16.840.1.611508.3.579 .2.9 1970 Unknown [id number] 2.16.840.1.609393.3.579 .2.9 1970 Unknown [id number] [id number] .2.9 1970 Unknown [id number] [id number] .2.1259 1970 Unknown [id number] [id number] .2.1258 1970 Unknown [id number] 2.16.840.1.639161.3.579 .2.9 1970 Unknown [id number] [id number] .2.9 1959 Unknown [id number] Unknown [id number] [id number] .2.531 Social History Date Type Detail Facility Start: 11-19-2023 End: 01-17-2024 Tobacco smoking status NHIS Never smoked tobacco [facility] Start: 11-19-2023 End: 11-27-2024 History of Social function [facility] Start: 11-19-2023 End: 11-27-2024 Tobacco use panel [facility] Start: 1970 Sex Assigned At Not on file [facility] Tobacco smoking status No Smokin g Status Entered [facility] Start: 01-17-2024 Tobacco use and exposure [...] to any clubs or organizations such as lutheran groups, unions, fraternal or athletic groups, or [...] doctor or pharmacy [SILS] Never [facility] Start: 06-20-2025 Tobacco smoking stat us NHIS Smokes tobacco daily (finding) [facility] Sex Male (finding) [facility] Start: 1970 Sex Assigned At Male [facility] NEGATED: Highlighted rowStart: NINF History of tobacco use Passive smoker [facility] Clinical Notes 07-18-2024 to 06-20-2025 Melissa Moeller NP - 06/20/2025 10:33 AM Joe Moeller NP - 06/20/2025 10:31 AM oJe Moeller NP - 06/20/2025 9:32 AM EDTHELIZABET GOODSON - 06/20/2025 9:00 AM EDTPatient Instructions Note [...] compliance problems. There is no history of CAD/PA, heart failure or PVD. Diabetes He presents [...] were reported. An TIANA inhibitor/angiotensin II receptor nas is being taken. UTI This is a [...] Current med: losartan documented in this encounter [facility] 06-20-2025 Instructions Melissa Moeller NP - 06/20/2025 [...] in 1 month documented in this encounter [facility] 12-04-2024 History of Presen t illness Narrative [...] Orders Lipid panel documented in this encounter [facility] 12-04-2024 Instructions Shayna Jones NP - 12/04/2024 3:30 PM EST Contact Dermatology- have allergy testing done as directed by them. FASTING labs ordered. Nothing to eat or drink for 12 hours prior to blood draw. Water and black coffee ok. documented in this encounter [facility] 10-11-2024 Telephone encounter Note Sent to [facility] [employer] by accident please send to [facility]! Thanks you! [facility] 10-11-2024 Miscellaneous Notes Sent to [employer] by accident please send to [facility]! Thanks you! documented in this encounter [facility] 10-09-2024 Telephone encounter Note Pt is now coming in 12/04/2024 Needs a refill on his Cozaar [facility] 10-09-2024 Miscellaneous Notes Pt is now coming in 12/04/2024 Needs a refill on his Cozaar documented in this encounter [facility] 08-14-2024 History of Presen t illness Narrative [...] develop for requiring urgent evaluation. Merced Mccall APRN-TUBE DRAWER documented in this encounter [facility] 08-09-2024 History of Presen t illness Narrative [...] develop for requiring urgent evaluation. Merced Mccall APRN-QUITA documented in this encounter [facility] 07-26-2024 Telephone encounter Note Patient needs post op pain meds [facility] 07-26-2024 Miscellaneous Notes Patient needs post op pain meds documented in this encounter [facility] 07-26-2024 Telephone encounter Note Needs post op pain meds [facility] 07-26-2024 Miscellaneous Notes Needs post op pain meds documented in this encounter [facility] 07-26-2024 Telephone encounter Note Post op pain rx. PDMP reviewed [facility] 07-26-2024 Miscellaneous Notes Post op pain rx. PDMP reviewed documented in this encounter [facility] 07-25-2024 Telephone encounter Note Noted per Valentin he has crutches / walker at home. [facility] 07-25-2024 Miscellaneous Notes Noted per Valentin he has crutches / walker at home. documented in this encounter [facility] 07-18-2024 History of Presen t illness Narrative [...] MINOR INSTRUCTIONS GIVEN TODAY 07/18 @3PM - [place] [employer] HAS WALKER / CRUTCHES AT HOME Follow up for 08/09 @10AM W/MERCED IN [place]. documented in this encounter [facility] Evaluation + Plan note No data available for this section [facility] Evaluation note Diagnosis Chronic pain of left knee- Primary documented in this encounter [facility] HealthcareEvaluation note* Diagnosis Chronic pain of left knee- Primary documented in this encounter [facility] HealthcareEvaluation note* Diagnosis Blood pressure elevated without [...] Unspecified essential hypertension documented in this encounter [facility] HealthcareEvaluation note* Diagnosis Status post arthroscopy of right knee- Primary Other postprocedural status documented in this encounter [facility] HealthcareEvaluation note* Diagnosis Nasal polyp- Primary Unspecified nasal polyp documented in this encounter [facility]Evaluation note* Diagnosis Pre-op examination- Primary documented in this encounter [facility]Evaluation note* Diagnosis Acute pain of right knee- Primary documented in this encounter [facility] HealthcareEvaluation note* Diagnosis Post-operative pain- Primary Other acute postoperative pain documented in this encounter [facility] HealthcareEvaluation note* Diagnosis Status post arthroscopy of right knee- Primary Other postprocedural status Nondisplaced fracture of medial condyle of right femur, subsequent encounter for closed fracture with routine healing documented in this encounter [facility] HealthcareEvaluation note* Diagnosis Blood pressure elevated without [...] for lipoid disorders documented in this encounter [facility] HealthcareEvaluation note* Diagnosis Blood pressure elevated without [...] Other chronic sinusitis documented in this encounter [facility] HealthcareEvaluation note* Diagnosis Blood pressure elevated without [...] neoplasm of prostate documented in this encounter [facility] HealthcareEvaluation note* Diagnosis Blood pressure elevated without [...] 10 ng/ml- Primary documented in this encounter [facility] HealthcareEvaluation note* Diagnosis Blood pressure elevated without [...] glucose level- Primary documented in this encounter [facility] HealthcareEvaluation note* Diagnosis Blood pressure elevated without [...] deficiency anemia type documented in this encounter [facility] HealthcareEvaluation noteNo assessment information availableK[facility] Work Phone: Evaluation note* Diagnosis Blood pressure elevated without history [...] deficiency anemia, unspecified iron deficiency anemia type Iron deficiency anemia, unspecified iron deficiency anemia type- Primary documented [facility] this encounter [facility] [...] deficiency anemia, unspecified iron deficiency anemia type Primary hypertension Unspecified essential hypertension documented in this encounter [facility] HealthcareHistory of [...] budesonide ordupixent if recurs [facility] instructions No data available for this section [facility] No data available for this section [facility] HospitalReason for referral (narrative)No reason for referral information availableUniversity Hospitals St[facility] Work Phone: Summary Purpose Family History No Family History Records Found No data available for this section No Family History Records FoundNo Family History Records FoundNo Family History Records FoundNo Family History Records Found Advance Directives Advance Directive Response Recorded Date/ Time Advance Directives No April 11 11:26am Additional Source Comments (unrecognized sect ion and content) No Status Records FoundNo Status Records FoundNo Status Records FoundNo Status Records FoundNo Status Records Found INFORMATION SOURCE (unrecogn ized section and content) DATE CREATED AUTHOR 07/29/2022 [facility] DATE CREATED AUTHOR AUTHOR'S ORGANIZ ATION 04/04/2024 [facility] DATE CREATED AUTHOR AUTHOR'S ORGANIZ ATION 06/29/2024 [facility] DATE CREATED AUTHOR AUTHOR'S ORGANIZ ATION 06/21/2025 [facility] DATE CREATED AUTHOR AUTHOR'S ORGANIZ ATION 06/23/2025 [facility] y[facility] Care Teams (unrecognized sec tion and content) Respite Coordinator Relationship Specialty Start Date End Date Leroy Barba MD PCP - General Family Medicine 11/19/23 Respite Coordinator Relationship Specialty Start Date End Date Leroy Barba MD PCP - General Family Medicine 11/19/23 Respite Coordinator Relationship Specialty Start Date End Date Leroy Barba MD PCP - General Family Medicine 11/19/23 Respite Coordinator Relationship Specialty Start Date End Date Leroy Barba MD PCP - General Family Medicine 11/19/23 Respite Coordinator Relationship Specialty Start Date End Date Leroy Barba MD [address] [place] [address] PCP - General Family Medicine 02/22/24 Shaikh Hudson MD [address] [place] [address] PCP - Medical [employer] 07/30/15 11/28/99 Shayna Jones NP [address] [place] [address] Nurse Practitioner Family Medicine 06/28/24 Respite Coordinator Relationship Specialty Start Date End Date Leroy Barba MD [address] [place] [address] PCP - General Family Medicine 02/22/24 Shaikh Hudson MD [address] [place] [address] PCP - Medical [employer] 07/30/15 11/28/99 Shayna Jones NP [address] [place] [address] Nurse Practitioner Family Medicine 06/28/24 Respite Coordinator Relationship Specialty Start Date End Date Leroy Barba MD [address] [place] [address] PCP - General Family Medicine 02/22/24 Shaikh Hudson MD [address] [place] [address] PCP - Medical [employer] 07/30/15 11/28/99 Shayna Jones NP [address] [place] [address] Nurse Practitioner Family Medicine 06/28/24 Respite Coordinator Relationship Specialty Start Date End Date Leroy Barba MD [address] [place] [address] PCP - General Family Medicine 02/22/24 Shaikh Hudson MD [address] [place] [address] PCP - Medical [employer] 07/30/15 11/28/99 Shayna Jones NP [address] [place] [address] Nurse Practitioner Family Medicine 06/28/24 Respite Coordinator Relationship Specialty Start Date End Date Leroy Barba MD [address] [place] [address] PCP - General Family Medicine 02/22/24 Shaikh Hudson MD [address] [place] [address] PCP - Medical [employer] 07/30/15 11/28/99 Shayna Jones NP [address] [place] [address] Nurse Practitioner Family Medicine 06/28/24 Respite Coordinator Relationship Specialty Start Date End Date Leroy Barba MD [address] [place] [address] PCP - General Family Medicine 02/22/24 Shaikh Hudson MD [address] [place] [address] PCP - Medical [employer] 07/30/15 11/28/99 Shayna Jones NP [address] [place] [address] Nurse Practitioner Family Medicine 06/28/24 Respite Coordinator Relationship Specialty Start Date End Date Leroy Barba MD [address] [place] [address] PCP - General Family Medicine 02/22/24 Shaikh Hudson MD [address] [place] [address] PCP - Medical [employer] 07/30/15 11/28/99 Shayna Jones NP [address] [place] [address] Nurse Practitioner Family Medicine 06/28/24 Respite Coordinator Relationship Specialty Start Date End Date Leroy Barba MD [address] [place] [address] PCP - General Family Medicine 02/22/24 Shaikh Hudson MD [address] [place] [address] PCP - Medical [employer] 07/30/15 11/28/99 Shayna Jones NP [address] [place] [address] Nurse Practitioner Family Medicine 06/28/24 Respite Coordinator Relationship Specialty Start Date End Date Leroy Barba MD [address] [place] [address] PCP - General Family Medicine 02/22/24 Shaikh Hudson MD [address] [place] [address] PCP - Medical [employer] 07/30/15 11/28/99 Shayna Jones, THOM [address] [place] [address] Nurse Practitioner Family Medicine 06/28/24 Respite Coordinator Relationship Specialty Start Date End Date Leroy Barba MD [address] [place] [address] PCP - General Family Medicine 02/22/24 Shaikh Hudson MD [address] [place] [address] PCP - Medical [employer] 07/30/15 11/28/99 Shayna Jones NP [address] [place] [address] Nurse Practitioner Family Medicine 06/28/24 Respite Coordinator Relationship Specialty Start Date End Date Leroy Barba MD [address] [place] [address] PCP - General Family Medicine 02/22/24 Shaikh Hudson MD [address] [place] [address] PCP - Medical [employer] 07/30/15 11/28/99 Shayna Jones NP [address] [place] [address] Nurse Practitioner Family Medicine 06/28/24 Respite Coordinator Relationship Specialty Start Date End Date Leroy Barba MD [address] [place] [address] PCP - General Family Medicine 02/22/24 Shaikh Hudson MD [address] [place] [address] PCP - Medical [employer] 07/30/15 11/28/99 Shayna Jones NP [address] [place] [address] Nurse Practitioner Family Medicine 06/28/24 Respite Coordinator Relationship Specialty Start Date End Date Leroy Barba MD [address] [place] [address] PCP - General Family Medicine 02/22/24 Shaikh Hudson MD [address] [place] [address] PCP - Medical [employer] 07/30/15 11/28/99 Shayna Jones NP [address] [place] [address] Nurse Practitioner Family Medicine 06/28/24 Respite Coordinator Relationship Specialty Start Date End Date Leroy Barba MD [address] [place] [address] PCP - General Family Medicine 02/22/24 Shaikh Hudson MD [address] [place] [address] PCP - Medical [employer] 07/30/15 11/28/99 Shayna Jones NP [address] [place] [address] Nurse Practitioner Family Medicine 06/28/24 Respite Coordinator Relationship Specialty Start Date End Date Leroy Barba MD [address] [place] [address] PCP - General Family Medicine 02/22/24 Shaikh Hudson MD [address] [place] [address] PCP - Medical [employer] 07/30/15 11/28/99 Shayna Jones NP [address] [place] [address] Nurse Practitioner Family Medicine 06/28/24 Team Status: Inactive Member Role Status Dates Melissa Thorpe Sajan Attending Provider Active Start: June 20, 2025 End: June 20, 2025 Respite Coordinator Relationship Specialty Start Date End Date Leroy Barba MD [address] [place] [address] PCP - General Family Medicine 02/22/24 Shaikh Hudson MD [address] [place] [address] PCP - Medical [employer] 07/30/15 11/28/99 Shayna Jones NP [address] [place] [address] Nurse Practitioner Family Medicine 06/28/24 Respite Coordinator Relationship Specialty Start Date End Date Leroy Barba MD [address] [place] [address] PCP - General Family Medicine 02/22/24 Shaikh Hudson MD [address] [place] [address] PCP - Medical [employer] 07/30/15 11/28/99 Shayna Jones NP [address] [place] [address] Nurse Practitioner Family Medicine 06/28/24 Respite Coordinator Relationship Specialty Start Date End Date Leroy Barba MD [address] [place] [address] PCP - General Family Medicine 02/22/24 Shaikh Hudson MD [address] [place] [address] PCP - Medical [facility] 07/30/15 11/28/99 Shayna Jones NP [address] [place] [address] Nurse Practitioner Family Medicine 06/28/24 Reason for Visit (unrecogniz ed section and content) Specialty Diagnoses / Procedures Referred By Contac t Referred To Contact Physical Therapy Diagnoses Pain in left knee Other chronic pain Procedures [place] [facility] EVALUATION HIGH COMPLEX 45 MINS Shaikh Hudson MD [address] [place] [address] Miguel Abdul, PT [address] [place] [address] Referral ID Status Reason Start Date Expiration Date V isits Requested Visits Authorized [id number] Authorized 12/20/2023 06/17/2024 20 20 Reason Onset [...] Reason Comments Med Refill Reason Comments Hypertension Goals (unrecognized section and content) Goals may be documented in a n alternate section FOR RECORDS PERTAINING TO PATIENTS WHO ARE [...] BE BASED ON THE PRIMARY CLINICAL RECORDS. [facility]. provides no warranty or guarantee of the accuracy or completeness of information in this document.
[2025-08-18 08:05] LABS: Hematocrit 39.8 % (42.0-54.0); Hemoglobin 13.8 g/dL (14.0-18.0); Immature Granulocytes Abs Auto 0.02 10^3/uL (0.00-0.03); Immature Granulocytes Pct Auto 0.2 % (0.0-0.5); Lymphocytes Absolute Auto 2.2 10^3/uL (1.2-3.8); Mean Corpuscular HGB Conc 34.7 g/dL (29.9-35.2); Mean Corpuscular Hemoglobin 32.1 pg (25.9-34.0); Mean Corpuscular Volume 92.6 fL (80.0-94.0); Platelet Count 286 10^3/uL (150-450); Red Blood Count 4.30 10^6/uL (4.70-6.10); White Blood Count 9.0 10^3/uL (4.0-11.0)
[2025-08-18 10:11] LABS: Iron 53.0 ug/dL (65.0-175.0)
[2025-08-19 08:08] LABS: PSA, Free 0.12 ng/mL
== END 2025-08-18 07:03 | disposition home or self-care (01) ==
LOC: LAB 07:05
PROVIDERS: PCP Nurse Practitioner; Visit Provider Nurse Practitioner
DX: D50.9 Iron deficiency anemia, unspecified (principal); R97.20 Elevated prostate specific antigen [PSA]
CPT/HCPCS: 36415; 83540; 84153; 84154; 85025